=== PATIENT | male | born 1980 | race Caucasian/White ===

== ENCOUNTER 2023-09-07 20:17 | Inpatient (IN) | payer BC, SELFPAY ==
[2023-09-07] VITALS (8 sets, daily range): BP systolic 134–162; BP diastolic 78–99; PULSE 64–83; RESP 14–17; TEMP 36.8–37; O2SAT 97–98; BMI 28.5
--- NOTE | 2023-09-07 20:47 | ED.OVERDOSE ---
HPI - Overdose General Chief Complaint: Overdose Stated Complaint: overdose Time Seen by Provider: 09/07/23 20:27 History of Present Illness HPI Narrative: Patient is a 43-year-old male found by PD sleeping in his car. Patient admits to drinking alcohol. Also intentionally tried to overdose himself on Paxil. Patient took up to 30 tablets of 20 mg Paxil. In addition took 3 nips of Smirnoff. Patient very agitated as he had an argument with his . Lives in his car now. Patient denies any other recreational drug use. Uses marijuana from time to time. There is no fever no chills. No coughing no congestion or upper respiratory symptoms. No diaphoresis. Patient came in for further evaluation after being noticed by PD. Related Data Allergies Allergy/AdvReac Type Severity Reaction Status Date / Time No Known Allergies Allergy Verified 09/07/23 20:44 Review of Systems Review of Systems: Positive SI Yes all other systems are reviewed and are negative Physical Exam Vital Signs: Vital Signs: Last Vital Signs Temp 98.6 F 09/07/23 21:00 Pulse 64 09/07/23 21:00 Resp 16 09/07/23 21:00 BP 139/88 09/07/23 21:00 Pulse Ox 98 09/07/23 21:00 O2 Del Method Room Air 09/07/23 21:00 BMI result Body Mass Index 28.5 Appearance: Alert. Oriented X3. No acute distress. Eyes: Pupils equal, round and reactive to light. ENT: Pharynx normal. Neck: Normal inspection. Neck supple. No lymph nodes noted. No crepitus CVS: Normal heart rate and rhythm. Pulses normal. Normal S1 and S2 Respiratory: No respiratory distress. Breath sounds normal. No Wheezing. No rales Abdomen: Soft and nontender. No rigidity. No distention. good BS x4 Skin: Skin warm and dry. Normal skin color. Normal skin turgor. Extremities: No lower extremity edema. Neurovascular intact to all extremities. No Lacerations. No Rash Neuro: Oriented X 3. No motor deficit. No sensory deficit. Moving all extermities. No slurred speech Medical Decision Making Medical Decision Making MDM Narrative: Patient took an overdose after axilla. Also drank alcohol. Labs are pending. My interpretation of patient's EKG showed a sinus rhythm heart rate is 60 CT QRS QTC within normal limits is no acute ST segment elevation. Aspirin Tylenol level drawn. Alcohol level drawn. Tox screen ordered. No acute distress. Will require crisis evaluation after labs return. Case is being signed out at the change of shift. Differential Diagnosis Differential Diagnoses: The differential diagnosis associated with the presentation includes Overdose on alcohol, Paxil suicidal ideation Tylenol aspirin overdose Consult Healthcare Provider Management of the patient was discussed with: Behavioral Health Provider Lab Data [facility] Lab Attestation statement: I reviewed the patient's lab results. 09/07/23 21:12 09/07/23 21:12 Labs: Lab Results 09/07/23 09/07/23 Range/Units 21:07 21:12 WBC 8.9 (4.8-10.8) X10*3/uL RBC 5.24 (4.60-5.80) X10*6/uL Hgb 16.6 (14.0-18.0) g/dl Hct 47.8 (42.0-52.0) % MCV 91.2 (80.0-98.0) fL MCH 31.7 (27.0-33.0) pg MCHC 34.7 (31.0-36.0) g/dl RDW 14.0 (11.0-16.0) % Plt Count 309 (160-400) X10*3/uL MPV 7.9 L (9.4-12.4) fL Immature Gran % (Auto) 0.3 (0.0-0.4) % Neut % (Auto) 66.8 (45-73) % Lymph % (Auto) 23.0 (20-40) % Prentiss % (Auto) 8.8 (2-11) % Eos % (Auto) 0.7 (0-4) % Baso % (Auto) 0.4 (0-2) % Lymph # (Auto) 2.1 (1.2-4.9) X10*3/uL Prentiss # (Auto) 0.8 (0.1-1.2) X10*3/uL Eos # (Auto) 0.1 (0.0-0.4) X10*3/uL Baso # (Auto) 0.0 (0.0-0.2) X10*3/uL Abs Immat Gran (auto) 0.03 (0.00-0.03) X10*3/uL Absolute Neuts (auto) 6.0 (2.0-8.3) x10*3/uL Absolute Nucleated RBC 0.000 (0.0-0.012) X10*3/uL Nucleated RBC % (auto) 0.0 (0.0-0.2) /100WBC POC Glucose 74 (60-115) mg/dL Independent Interpretation I performed an independent interpretation of an: EKG (Sinus heart rate is 70 CT QRS QTC within normal limits is no acute ST segment elevation noted.) Chronic Conditions Anxiety depression long history of alcohol use Discharge Plan Discharge Clinical Impression: Drug overdose, Suicide attempt by multiple drug overdose Patient Disposition: Still a Patient
--- NOTE | 2023-09-07 21:14 | MHC.EDTECH ---
Patient came in by ambulance changed into crisis attire,(Security at Bedside) Patient placed on the cardiac specialist and vitals were taken.EKG was taken per order and signed by provider. Labs were obtained and sent to lab. POC taken and is 74 made aware. All belongings were placed in [facility] ROOM, Eye glasses patient has on. This tech is the one on one sitter at this time.
--- NOTE | 2023-09-07 21:20 | MHC.EDTECH ---
Patient urinated 400MLS in urinal. Urine was collected and sent to lab
--- NOTE | 2023-09-07 21:30 | MHC.EDTECH ---
Patient drank 240MLS of ice water, 1-1 sitter for safety
--- NOTE | 2023-09-07 22:17 | MHC.EDTECH ---
Hourly rounds and vitals completed,patient is resting comfortably, 1-1 sitter at bedside for safety
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
[2023-09-08] VITALS (14 sets, daily range): BP systolic 134–156; BP diastolic 82–98; PULSE 58–97; RESP 16–22; TEMP 36.4–37.3; O2SAT 95–98
--- NOTE | 2023-09-08 00:25 | PC.NURSE ---
RN to bedside for medication administration. When the RN asked the patient his date of he said a different date than listed in the chart. RN made registration aware to try and verify the pt's correct date of . Medication administration on hold at the moment.
--- NOTE | 2023-09-08 01:49 | PC.NURSE ---
RN called Poison control to report intentional OD and to obtain guidelines. Per Poison control the plan is to watch the patient until morning. She reports management of Paxil OD is the same as you would manage ETOH Withdrawals; with benzos. She did encourage us to keep the pt on the monitor technician until the morning, does not believe a repeat EKG is required at this time as he is well beyond the peak if the time he provided of a [id number] ingestion is correct. She reports she will check in before the end of her shift at 0700. clinical programmer and aware
--- NOTE | 2023-09-08 02:30 | MHC.EDTECH ---
Hourly rounds and vitals completed,patient is sleeping with a 1-1 sitter at bedside for safety.
--- NOTE | 2023-09-08 04:49 | MHC.EDTECH ---
Hourly rounds and vitals completed, patient is sleeping,1-1 sitter at bedside for safety
--- NOTE | 2023-09-08 05:46 | MHC.EDTECH ---
Hourly rounds and vitals completed,patient is sleeping and 1-1 sitter at bedside for safety.
--- NOTE | 2023-09-08 05:53 | MHC.EDTECH ---
POC taken and is 61 Shakira LICONA aware
--- NOTE | 2023-09-08 06:45 | PC.NURSE ---
poison control called and states pt is cleared from the paxil ingestions.
--- NOTE | 2023-09-08 08:11 | PC.NURSE ---
pt is alert and oriented, skin pwd, respirations even and unlabored, ls clear, abd soft and non-tender but pt is reporting general abd pain 7/10, denies nausea at this time, no visible tremor at this time, ns on the monitor. pt is reporting si, states he would try killing himself again with possible attempt to take pills again. sitter at bedside
--- NOTE | 2023-09-08 08:16 | PC.NURSE ---
care team at bedside
--- NOTE | 2023-09-08 12:36 | MHC.CARE ---
patient pending inpatient loc admission.
--- NOTE | 2023-09-08 17:26 | PC.NURSE ---
2mg Ativan given PO for CIWA of 7.
--- NOTE | 2023-09-08 19:13 | PC.NURSE ---
patient appears to remain at rest at present respirations are even and unlabored patient appears in no distress
[2023-09-09 07:53] VITALS: BP 151/95; PULSE 79; RESP 19; TEMP 36.3; O2SAT 97
--- NOTE | 2023-09-09 10:40 | PC.NURSE ---
calm, pleasant, polite and cooperative this morning, medicated as ordered, med rec completed and Dr Khan informed, currently laying in bed
[2023-09-09 10:59] VITALS: BP 142/88; PULSE 84; RESP 20; TEMP 36.8; O2SAT 99
[2023-09-09 14:45] VITALS: BP 136/80; PULSE 78; RESP 16; TEMP 37; O2SAT 98
[2023-09-09 16:10] VITALS: BP 111/70; PULSE 76; RESP 16; TEMP 37.1; O2SAT 98
[2023-09-09 16:26] VITALS: BMI 25.6
--- NOTE | 2023-09-09 19:11 | PC.NURSE ---
Christophe was admitted to [facility] at 1430 from [facility] on CV for treatment of MDD and ETOH use disorder.? Precipitant of admission include overdose on paxil in an attempt to end his life. Christophe is alert, fully oriented, pleasant and cooperative with admission process. Mood is depressed. Affect is anxious. . He denies hallucinations of any kind and no overt psychosis is noted. Christophe denies Ideation, plan or intent to harm self or others on admission, Appetite is good but he had an 18 lb weight loss prior to admission. Sleep is poor per pt report, 1 or 2 hours a night. Focus is good throughout assessment. Substance Issues -include daily marijuana use and drinking 10 nips per day every day for several weeks. He has extremely long and overgrown toe nails which appear to have cut his ankles superficially. He complained of headache improved but unrelieved by tylenol. CIWA at 1605 was 9 for which pt received ativan 1mg with effect. He is on q 15 minute Safety Checks
[2023-09-09 20:25] VITALS: BP 116/71; PULSE 77; RESP 18; TEMP 36.8; O2SAT 96
[2023-09-10 08:53] VITALS: BP 99/55; PULSE 65; RESP 15; TEMP 36.6; O2SAT 97
[2023-09-10 11:47] VITALS: BP 128/60; PULSE 70; RESP 16; TEMP 36.5; O2SAT 100
[2023-09-10 12:20] LABS: Alanine Aminotransferase 21 U/L (0-40); Albumin Level 3.5 g/dL (3.5-5.0); Alkaline Phosphatase 47 U/L (39-117); Anion Gap 9 (12-20); Aspartate Amino Transferase 38 U/L (5-37); Bilirubin Total 0.5 mg/dL (0.0-1.0); Blood Urea Nitrogen 10 mg/dL (9-16); Calcium 9.3 mg/dL (8.4-10.2); Carbon Dioxide 31 mmol/L (22-29); Chloride 108 mmol/L (96-108); Cholesterol 146 mg/dL (<200); Creatinine Clr Calc Pharmacy 123.1; Estimated Glomerular Filt Rate > 60; Glucose Fasting 87 mg/dL (60-99); HDL Cholesterol 51 mg/dL (>40); LDL Cholesterol Calculated 56 mg/dL (<100); Potassium 3.7 mmol/L (3.3-5.1); Sodium 144 mmol/L (135-145); Total Protein 6.3 g/dL (6.5-8.0); Triglycerides 198 mg/dL (<150)
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
[2023-09-10 20:20] VITALS: BP 120/70; PULSE 76; RESP 16; TEMP 37.1; O2SAT 98
[2023-09-11 06:00] VITALS: BP 110/67; PULSE 68; RESP 18; TEMP 36.2; O2SAT 96
--- NOTE | 2023-09-11 11:27 | HO.PSYCHPN ---
Subjective Subjective Date of Service: 09/11/23 Reason For Visit: crisis Subjective Notes: Conditional Voluntary Medical Problems Affecting Mental Status: No Interim History: met with patient. Discussed with Nursing. Chart reviewed. Main complaint today is GERD discomfort. Has done well with Protonix in the past. This discomfort has disrupted his sleep. Otherwise reports mood is getting better. Denies suicidal thoughts. No psychosis. Feeling supported. No withdrawal symptoms from Ativan taper. Continues to be hopeful for supports and planning after hospitalization. Medication Compliance: Yes Side effects from medications: No Attending Groups: Yes Review of Systems Acute medical concerns: No Review of Systems Review of Systems GERD Mental Status Exam Mental Status Exam Narrative: Pleasant. Engaged. Organized. Appropriately present in. Is dysthymic. Adamantly denies thoughts of suicide. No HI. No agitation or psychosis. Insight and judgment fair Diagnostics Vital Signs (24Hr): Vital Signs - 24 hr 09/10/23 11:47 09/10/23 20:20 09/11/23 06:00 Temperature 97.7 F 98.8 F 97.1 F Pulse Rate 70 76 68 Respiratory Rate 16 16 18 Blood Pressure 128/60 120/70 110/67 Pulse Oximetry 100 98 96 Oxygen Delivery Method Room Air Room Air Room Air BMI result Body Mass Index 25.6 Labs 09/07/23 21:12 09/10/23 11:29 Labs: Laboratory Results - last 48 hr 09/10/23 11:29 Sodium 144 Potassium 3.7 Chloride 108 Carbon Dioxide 31 H Anion Gap 9 L BUN 10 Creatinine 0.84 Estim Creat Clear Calc 123.1 Estimated GFR > 60 Fasting Glucose 87 Calcium 9.3 D Total Bilirubin 0.5 AST 38 H ALT 21 Alkaline Phosphatase 47 Total Protein 6.3 L Albumin 3.5 Triglycerides 198 H Cholesterol 146 LDL Cholesterol, Calc 56 HDL Cholesterol 51 Medications Medications Current Medications Acetaminophen (Acetaminophen 325 Mg Tablet) 650 mg PO Q6H PRN PRN Reason: Headache/Pain Mild Scale (1-3) Last Admin: 09/11/23 06:07 Dose: 650 mg Al Hydroxide/Mg Hydroxide (Magnesium Hydrox/Alum Hydrox 30 Ml Oral.Susp) 30 ml PO Q6H PRN PRN Reason: Heartburn/Nausea Last Admin: 09/11/23 00:02 Dose: 30 ml Bupropion HCl (Bupropion Hcl Xl 150 Mg Tab.Er.24h) 150 mg PO DAILY SEVEN Last Admin: 09/11/23 08:42 Dose: 150 mg Folic Acid (Folic Acid 1 Mg Tablet) 1 mg PO DAILY [facility] Last Admin: 09/11/23 08:42 Dose: 1 mg Hydroxyzine HCl (Hydroxyzine Hcl 25 Mg Tablet) 25 mg PO Q6H PRN PRN Reason: Anxiety Last Admin: 09/11/23 06:08 Dose: 25 mg Lorazepam (Lorazepam 1 Mg Tablet) 1 mg PO TID PRN; Taper PRN Reason: taper Stop: 09/13/23 13:49 Last Admin: 09/11/23 09:37 Dose: 1 mg Magnesium Hydroxide (Milk Of Magnesia 30 Ml Oral.Susp) 30 ml PO DAILY PRN PRN Reason: Constipation Multivitamins/Vitamin C (Multivitamin Tablet) 1 tab PO DAILY [facility] Last Admin: 09/11/23 08:42 Dose: 1 tab Nicotine (Nicotine 21 Mg Patch.Td24) 21 mg TRANSDERMA DAILY [facility] Last Admin: 09/11/23 08:42 Dose: 21 mg Nicotine Polacrilex (Nicotine Polacrilex 2 Mg Gum) 4 mg BUCCAL Q2H PRN PRN Reason: Nicotine Cravings Omeprazole (Omeprazole 20 Mg Capsule.Dr) 20 mg PO DAILY@0630 [facility] Last Admin: 09/11/23 06:08 Dose: 20 mg Paroxetine HCl (Paroxetine Hcl 20 Mg Tablet) 20 mg PO DAILY [facility] Stop: 09/21/23 08:59 Last Admin: 09/11/23 08:42 Dose: 20 mg Thiamine HCl (Thiamine Hcl 100 Mg Tablet) 100 mg PO DAILY [facility] Last Admin: 09/11/23 08:42 Dose: 100 mg Trazodone HCl (Trazodone Hcl 50 Mg Tablet) 50 mg PO BEDTIME MRX1 PRN PRN Reason: Insomnia Last Admin: 09/10/23 21:45 Dose: 50 mg Allergies Allergies Allergy/AdvReac Type Severity Reaction Status Date / Time No Known Allergies Allergy Verified 09/07/23 20:44 Assessment & Plan Assessment & Plan (1) Major depression: Status: Acute Code(s): F32.9 - Major depressive disorder, single episode, unspecified (2) Alcohol use disorder: Status: Acute Code(s): F10.90 - Alcohol use, unspecified, uncomplicated Plan presents with major depressive disorder and comorbid alcohol use disorder, with recent relapse following 10 years of sobriety. Significant psychosocial stressors. Reports has been on Paxil for well over 20 years through primary care provider and would like to try something different or in combination. Adamantly reports being adherent with Paxil even while drinking. Also reports being future oriented on returning to his work at [employer] on Tuesday. We did discuss legal status, including rights around three-day notice, gaona warning etc.. PLan: CV Start wellbutrin 150 Will order paxil 20mg with a view to tapering off pre admission dose of 40mg- no benefit but also want to avoid withdrawal syndrome. will also order Ativan taper 09/11/2023: Prilosec twice daily Reason for continued inpatient stay Substantial Risk for: harm to self Time Spent With Patient Time: Total time managing care of this patient today ____ minutes.
[2023-09-11 19:55] VITALS: BP 129/73; PULSE 83; RESP 16; TEMP 36.8; O2SAT 98
[2023-09-12 07:15] VITALS: BP 115/70; PULSE 75; RESP 16; TEMP 36.2; O2SAT 100
[2023-09-12 07:45] VITALS: BP 115/70; PULSE 75; RESP 16; TEMP 36.2; O2SAT 100
--- NOTE | 2023-09-12 09:45 | P.PNPSI_ITS ---
Subjective Subjective Date of Service: 09/12/23 Reason For Visit: crisis Subjective Notes: Conditional Voluntary Interim History: Reviewed with . Patient reports feeling better ; pt stated, I took a bunch of pills and realized I shouldn't have done that just because I didn't have anywhere to go. My work is my life and that's what makes me happy. I plan on staying with one of my coworkers. I also feel better with taking the Wellbutrin . Patient reports he is hoping to maintain his sobriety since he has a hx of being 10 years sober prior to this relapse. Pt stated, I plan on going to AA meetings and following up with the outpatient providers . pt denies SI/HI/VH/AH. Medication Compliance: Yes Side effects from medications: No Review of Systems Constitutional: Reports as per HPI Eyes: Reports as per HPI Reports as per HPI Cardiovascular: Reports as per HPI Respiratory: Reports as per HPI Gastrointestinal: Reports as per HPI Genitourinary: Reports as per HPI Musculoskeletal: Reports as per HPI Skin/Breast: Reports as per HPI Reports as per HPI Psychiatric: Reports as per HPI Endocrine: Reports as per HPI Hematologic/Lymphatic: Reports as per HPI Allergic/Immunologic: Reports as per HPI Mental Status Exam Mental Status Exam Narrative: Pt is alert and oriented; behavior is cooperative and calm; dressed in casual attire; mood is described as better ; eye contact appropriate; Speech is normal rate, volume and prosody and not pressured; thought process is organized and goal directed; Thought content is on tx; otherwise pertinent to relevant topics and without any delusional content, paranoid ideations or grandiosity; denies SI/HI/VH/AH. Diagnostics Vital Signs (24Hr): Vital Signs - 24 hr 09/11/23 19:55 09/12/23 07:15 09/12/23 07:45 Temperature 98.2 F 97.2 F 97.2 F Pulse Rate 83 75 75 Respiratory Rate 16 16 16 Blood Pressure 129/73 115/70 115/70 Pulse Oximetry 98 100 100 Oxygen Delivery Method Room Air Room Air Room Air BMI result Body Mass Index 25.6 Labs 09/07/23 21:12 09/10/23 11:29 Labs: Laboratory Results - last 48 hr 09/10/23 11:29 Sodium 144 Potassium 3.7 Chloride 108 Carbon Dioxide 31 H Anion Gap 9 L BUN 10 Creatinine 0.84 Estim Creat Clear Calc 123.1 Estimated GFR > 60 Fasting Glucose 87 Calcium 9.3 D Total Bilirubin 0.5 AST 38 H ALT 21 Alkaline Phosphatase 47 Total Protein 6.3 L Albumin 3.5 Triglycerides 198 H Cholesterol 146 LDL Cholesterol, Calc 56 HDL Cholesterol 51 Medications Medications Current Medications Acetaminophen (Acetaminophen 325 Mg Tablet) 650 mg PO Q6H PRN PRN Reason: Headache/Pain Mild Scale (1-3) Last Admin: 09/12/23 03:18 Dose: 650 mg Al Hydroxide/Mg Hydroxide (Magnesium Hydrox/Alum Hydrox 30 Ml Oral.Susp) 30 ml PO Q6H PRN PRN Reason: Heartburn/Nausea Last Admin: 09/11/23 21:07 Dose: 30 ml Bupropion HCl (Bupropion Hcl Xl 150 Mg Tab.Er.24h) 150 mg PO DAILY [facility] Last Admin: 09/12/23 08:05 Dose: 150 mg Folic Acid (Folic Acid 1 Mg Tablet) 1 mg PO DAILY [facility] Last Admin: 09/12/23 08:04 Dose: 1 mg Hydroxyzine HCl (Hydroxyzine Hcl 25 Mg Tablet) 25 mg PO Q6H PRN PRN Reason: Anxiety Last Admin: 09/12/23 09:19 Dose: 25 mg Lorazepam (Lorazepam 1 Mg Tablet) 1 mg PO BID PRN; Taper PRN Reason: taper Stop: 09/13/23 13:49 Last Admin: 09/11/23 15:51 Dose: 1 mg Magnesium Hydroxide (Milk Of Magnesia 30 Ml Oral.Susp) 30 ml PO DAILY PRN PRN Reason: Constipation Multivitamins/Vitamin C (Multivitamin Tablet) 1 tab PO DAILY [facility] Last Admin: 09/12/23 08:04 Dose: 1 tab Nicotine (Nicotine 21 Mg Patch.Td24) 21 mg TRANSDERMA DAILY [facility] Last Admin: 09/12/23 08:03 Dose: 21 mg Nicotine Polacrilex (Nicotine Polacrilex 2 Mg Gum) 4 mg BUCCAL Q2H PRN PRN Reason: Nicotine Cravings Omeprazole (Omeprazole 20 Mg Capsule.Dr) 20 mg PO BID@0630,1630 [facility] Last Admin: 09/12/23 06:05 Dose: 20 mg Paroxetine HCl (Paroxetine Hcl 20 Mg Tablet) 20 mg PO DAILY [facility] Stop: 09/21/23 08:59 Last Admin: 09/12/23 08:04 Dose: 20 mg Thiamine HCl (Thiamine Hcl 100 Mg Tablet) 100 mg PO DAILY [facility] Last Admin: 09/12/23 08:04 Dose: 100 mg Trazodone HCl (Trazodone Hcl 50 Mg Tablet) 50 mg PO BEDTIME MRX1 PRN PRN Reason: Insomnia Last Admin: 09/11/23 21:06 Dose: 50 mg Allergies Allergies Allergy/AdvReac Type Severity Reaction Status Date / Time No Known Allergies Allergy Verified 09/07/23 20:44 Assessment & Plan Assessment & Plan (1) Major depression: Status: Acute Code(s): F32.9 - Major depressive disorder, single episode, unspecified (2) Alcohol use disorder: Status: Acute Code(s): F10.90 - Alcohol use, unspecified, uncomplicated Plan presents with major depressive disorder and comorbid alcohol use disorder, with recent relapse following 10 years of sobriety. Significant psychosocial stressors. Reports has been on Paxil for well over 20 years through primary care provider and would like to try something different or in combination. Adamantly reports being adherent with Paxil even while drinking. Also reports being future oriented on returning to his work at [employer] on Tuesday. We did discuss legal status, including rights around three-day notice, [place] warning etc.. PLan: CV Start wellbutrin 150 Will order paxil 20mg with a view to tapering off pre admission dose of 40mg- no benefit but also want to avoid withdrawal syndrome. will also order Ativan taper 09/11/2023: Prilosec twice daily 09/12: Patient reports feeling better ; pt stated, I took a bunch of pills and realized I shouldn't have done that just because I didn't have anywhere to go. My work is my life and that's what makes me happy. I plan on staying with one of my coworkers. I also feel better with taking the Wellbutrin . Patient reports he is hoping to maintain his sobriety since he has a hx of being 10 years sober prior to this relapse. Pt stated, I plan on going to AA meetings and following up with the outpatient providers . pt denies SI/HI/VH/AH. Continue current tx plan. Patient educated on: diagnosis, medication risk/benefits, substance abuse and therapeutic strategies Informed Consent: understands Reason for continued inpatient stay Substantial Risk for: med/psych decompensation Time Spent With Patient Time: Total time managing care of this patient today _30___ minutes.
--- NOTE | 2023-09-12 14:56 | MHC.CLN ---
NUTRITION CONSULT FOR 18# WEIGHT LOSS, LACK OF APPETITE. WEIGHT DISCREPANCY NOTED UPON ADMISSION WITH 09/07=95.254 KG AND 09/09=85.729 KG. NO PRIOR WEIGHT HX VIEWED. CURRENT APPETITE REPORTED TO BE GOOD/EXCELLENT. LIKELY CONTRIBUTORS TO WEIGHT LOSS PRIOR TO ADMIT INCLUDE ETOH USE DISORDER AND MDD WITH SUICIDE ATTEMPT. NO ADDITIONAL NUTRITION INTERVENTIONS DUE TO CURRENT GOOD APPETITE.
[2023-09-12] MEDS: Acetaminophen 325 MG TABLET 650 MG PO (16:34)
[2023-09-12] MEDS: Omeprazole 20 MG CAPSULE.DR PO (16:34)
[2023-09-12] MEDS: Pseudoephedrine HCL 30 MG TABLET PO ×2 (16:53→20:58)
[2023-09-12] MEDS: LORazepam 0.5 MG TABLET PO (18:17)
[2023-09-12] MEDS: traZODone HCL 50 MG TABLET PO ×2 (21:15→22:19)
[2023-09-12 22:03] VITALS: BP 125/71; PULSE 78; RESP 16; TEMP 37.2; O2SAT 99
[2023-09-12] MEDS: hydrOXYzine HCL 25 MG TABLET PO (22:19)
[2023-09-13] MEDS: hydrOXYzine HCL 25 MG TABLET PO ×4 (04:34→23:03)
[2023-09-13] MEDS: Pseudoephedrine HCL 30 MG TABLET PO ×5 (04:35→23:03)
[2023-09-13] MEDS: Omeprazole 20 MG CAPSULE.DR PO ×2 (05:59→16:29)
[2023-09-13 07:10] VITALS: BP 120/63; PULSE 73; RESP 14; TEMP 36.6; O2SAT 98
[2023-09-13] MEDS: LORazepam 0.5 MG TABLET PO ×2 (08:28→18:19)
[2023-09-13] MEDS: PARoxetine HCL 20 MG TABLET PO (08:28)
[2023-09-13] MEDS: buPROPion HCl XL 150 MG TAB.ER.24H PO (08:28)
[2023-09-13] MEDS: Nicotine 21 MG PATCH.TD24 TRANSDERMA (08:28)
--- NOTE | 2023-09-13 09:19 | P.PNPSI_ITS ---
Subjective Subjective Date of Service: 09/13/23 Reason For Visit: crisis Subjective Notes: Conditional Voluntary Interim History: Reviewed with . Patient reports feeling good today; sleeping well. Pt stated, I plan on getting my car and driving to the jail after I'm discharged then going back to work . Pt denies SI/HI/VH/AH. Medication Compliance: Yes Side effects from medications: No Attending Groups: Intermittent Review of Systems Constitutional: Reports as per HPI Eyes: Reports as per HPI Reports as per HPI Cardiovascular: Reports as per HPI Respiratory: Reports as per HPI Gastrointestinal: Reports as per HPI Genitourinary: Reports as per HPI Musculoskeletal: Reports as per HPI Skin/Breast: Reports as per HPI Reports as per HPI Psychiatric: Reports as per HPI Endocrine: Reports as per HPI Hematologic/Lymphatic: Reports as per HPI Allergic/Immunologic: Reports as per HPI Mental Status Exam Mental Status Exam Narrative: Pt is alert and oriented; behavior is cooperative and calm; dressed in casual attire; mood is described as good ; eye contact appropriate; Speech is normal rate, volume and prosody and not pressured; thought process is organized and goal directed; Thought content is on discharge; otherwise pertinent to relevant topics and without any delusional content, paranoid ideations or grandiosity; denies SI/HI/VH/AH. Diagnostics Vital Signs (24Hr): Vital Signs - 24 hr 09/12/23 22:03 09/13/23 07:10 Temperature 99.0 F 97.9 F Pulse Rate 78 73 Respiratory Rate 16 14 Blood Pressure 125/71 120/63 Pulse Oximetry 99 98 Oxygen Delivery Method Room Air Room Air BMI result Body Mass Index 25.6 Labs 09/07/23 21:12 09/10/23 11:29 Medications Medications Current Medications Acetaminophen (Acetaminophen 325 Mg Tablet) 650 mg PO Q6H PRN PRN Reason: Headache/Pain Mild Scale (1-3) Last Admin: 09/12/23 16:34 Dose: 650 mg Al Hydroxide/Mg Hydroxide (Magnesium Hydrox/Alum Hydrox 30 Ml Oral.Susp) 30 ml PO Q6H PRN PRN Reason: Heartburn/Nausea Last Admin: 09/11/23 21:07 Dose: 30 ml Bupropion HCl (Bupropion Hcl Xl 150 Mg Tab.Er.24h) 150 mg PO DAILY [facility] Last Admin: 09/13/23 08:28 Dose: 150 mg Hydroxyzine HCl (Hydroxyzine Hcl 25 Mg Tablet) 25 mg PO Q6H PRN PRN Reason: Anxiety Last Admin: 09/13/23 04:34 Dose: 25 mg Lorazepam (Lorazepam 0.5 Mg Tablet) 0.5 mg PO BID PRN PRN Reason: Anxiety Last Admin: 09/13/23 08:28 Dose: 0.5 mg Magnesium Hydroxide (Milk Of Magnesia 30 Ml Oral.Susp) 30 ml PO DAILY PRN PRN Reason: Constipation Nicotine (Nicotine 21 Mg Patch.Td24) 21 mg TRANSDERMA DAILY [facility] Last Admin: 09/13/23 08:28 Dose: 21 mg Nicotine Polacrilex (Nicotine Polacrilex 2 Mg Gum) 4 mg BUCCAL Q2H PRN PRN Reason: Nicotine Cravings Omeprazole (Omeprazole 20 Mg Capsule.Dr) 20 mg PO BID@0630,1630 [facility] Last Admin: 09/13/23 05:59 Dose: 20 mg Paroxetine HCl (Paroxetine Hcl 20 Mg Tablet) 20 mg PO DAILY [facility] Stop: 09/21/23 08:59 Last Admin: 09/13/23 08:28 Dose: 20 mg Pseudoephedrine HCl (Pseudoephedrine Hcl 30 Mg Tablet) 30 mg PO Q4H PRN PRN Reason: Congestion Last Admin: 09/13/23 04:35 Dose: 30 mg Trazodone HCl (Trazodone Hcl 50 Mg Tablet) 50 mg PO BEDTIME MRX1 PRN PRN Reason: Insomnia Last Admin: 09/12/23 22:19 Dose: 50 mg Allergies Allergies Allergy/AdvReac Type Severity Reaction Status Date / Time No Known Allergies Allergy Verified 09/07/23 20:44 Assessment & Plan Assessment & Plan (1) Major depression: Status: Acute Code(s): F32.9 - Major depressive disorder, single episode, unspecified (2) Alcohol use disorder: Status: Acute Code(s): F10.90 - Alcohol use, unspecified, uncomplicated Plan presents with major depressive disorder and comorbid alcohol use disorder, with recent relapse following 10 years of sobriety. Significant psychosocial stressors. Reports has been on Paxil for well over 20 years through primary care provider and would like to try something different or in combination. Adamantly reports being adherent with Paxil even while drinking. Also reports being future oriented on returning to his work at [employer] on Tuesday. We did discuss legal status, including rights around three-day notice, [place] warning etc.. PLan: CV Start wellbutrin 150 Will order paxil 20mg with a view to tapering off pre admission dose of 40mg- no benefit but also want to avoid withdrawal syndrome. will also order Ativan taper 09/11/2023: Prilosec twice daily 09/12: Patient reports feeling better ; pt stated, I took a bunch of pills and realized I shouldn't have done that just because I didn't have anywhere to go. My work is my life and that's what makes me happy. I plan on staying with one of my coworkers. I also feel better with taking the Wellbutrin . Patient reports he is hoping to maintain his sobriety since he has a hx of being 10 years sober prior to this relapse. Pt stated, I plan on going to AA meetings and following up with the outpatient providers . pt denies SI/HI/VH/AH. Continue current tx plan. 09/13: Patient reports feeling good today; sleeping well. Pt stated, I plan on getting my car and driving to the jail after I'm discharged then going back to work . Pt denies SI/HI/VH/AH. Plan to discharge tomorrow. Patient educated on: diagnosis, medication risk/benefits, substance abuse and therapeutic strategies Informed Consent: understands Reason for continued inpatient stay Substantial Risk for: stable for discharge Time Spent With Patient Time: Total time managing care of this patient today _20___ minutes.
[2023-09-13] MEDS: Acetaminophen 325 MG TABLET 650 MG PO ×2 (12:17→21:03)
[2023-09-13 20:55] VITALS: BP 129/65; PULSE 75; RESP 16; TEMP 36.6; O2SAT 99
[2023-09-13] MEDS: traZODone HCL 50 MG TABLET PO ×2 (21:06→21:58)
[2023-09-14] MEDS: traZODone HCL 50 MG TABLET PO (01:52)
[2023-09-14] MEDS: Pseudoephedrine HCL 30 MG TABLET PO ×2 (05:07→10:01)
[2023-09-14] MEDS: Omeprazole 20 MG CAPSULE.DR PO (05:30)
[2023-09-14] MEDS: hydrOXYzine HCL 25 MG TABLET PO (05:30)
[2023-09-14] MEDS: Acetaminophen 325 MG TABLET 650 MG PO ×2 (05:49→11:31)
[2023-09-14 07:05] VITALS: BP 116/58; PULSE 73; RESP 14; TEMP 36.2; O2SAT 99
[2023-09-14] MEDS: Nicotine 21 MG PATCH.TD24 TRANSDERMA (07:58)
[2023-09-14] MEDS: PARoxetine HCL 20 MG TABLET PO (07:59)
[2023-09-14] MEDS: buPROPion HCl XL 150 MG TAB.ER.24H PO (07:59)
[2023-09-14] MEDS: LORazepam 0.5 MG TABLET PO (08:02)
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
== END 2023-09-14 11:40 | disposition home or self-care (01) | DRG 754 ==
LOC: HO.ED 09-09 09:55 → HO.PADLT16 09-09 13:47
PROVIDERS: Admitting Provider Registered Nurse; Emergency Provider Emergency Medicine Emergency Medical Services; Responsible Provider Registered Nurse; Visit Provider Psychiatry & Neurology Psychiatry
DX: F32.9 Major depressive disorder, single episode, unspecified (principal); F10.20 Alcohol dependence, uncomplicated; F17.210 Nicotine dependence, cigarettes, uncomplicated; T43.222A Poisoning by selective serotonin reuptake inhibitors, intentional self-harm, initial encounter; Z20.822 Contact with and (suspected) exposure to COVID-19; Z59.02 Unsheltered homelessness; Z71.6 Tobacco abuse counseling; Z79.899 Other long term (current) drug therapy
CPT/HCPCS: 36415; 80048; 80053; 80061; 80076; 80143; 80179; 80307; 81001; 82272; 82947; 85025; 85610; 87635; 93005; 99285; J2765; S9485

== ENCOUNTER → 2023-09-07 20:44 | Outpatient (BNV) | payer BC, SELFPAY | PROVIDERS: Emergency Provider Emergency Medicine Emergency Medical Services; Visit Provider Internal Medicine Cardiovascular Disease | DX: T50.901A Poisoning by unspecified drugs, medicaments and biological substances, accidental (unintentional), initial encounter (principal); R94.31 Abnormal electrocardiogram [ECG] [EKG] | CPT/HCPCS: 93010 ==

== ENCOUNTER → 2023-09-09 13:44 | Outpatient (BNV) | payer BC, SELFPAY | PROVIDERS: Admitting Provider Registered Nurse; Emergency Provider Emergency Medicine Emergency Medical Services; Visit Provider Psychiatry & Neurology Psychiatry | DX: F33.2 Major depressive disorder, recurrent severe without psychotic features (principal); F10.90 Alcohol use, unspecified, uncomplicated | CPT/HCPCS: 90792; 99231; 99238 ==

== ENCOUNTER 2023-09-16 05:18 | Inpatient (IN) | payer BC, SELFPAY ==
[2023-09-16] VITALS (8 sets, daily range): BP systolic 93–124; BP diastolic 56–72; PULSE 66–80; RESP 12–19; TEMP 36.1–36.8; O2SAT 94–100; BMI 27.9
--- NOTE | 2023-09-16 | ECG_ITS ---
Test Reason : OD Blood Pressure : / mmHG Vent. Rate : 073 BPM Atrial Rate : 073 BPM P-R Int : 148 ms QRS Dur : 088 ms QT Int : 380 ms P-R-T Axes : 045 -02 032 degrees QTc Int : 418 ms Normal sinus rhythm Normal ECG When compared with ECG of 16-SEP-2023 07:33, No significant change was found Referred By: Jose Carlos Sharma Electronically Signed By:ASHLY SALGADO MD
--- NOTE | 2023-09-16 | ECG_ITS ---
Test Reason : SI Blood Pressure : / mmHG Vent. Rate : 066 BPM Atrial Rate : 066 BPM P-R Int : 150 ms QRS Dur : 086 ms QT Int : 402 ms P-R-T Axes : 059 001 044 degrees QTc Int : 421 ms Normal sinus rhythm Inferior infarct (cited on or before 16-SEP-2023) Abnormal ECG When compared with ECG of 07-SEP-2023 20:57, No significant change was found Referred By: Generic ED Physician Electronically Signed By:ASHLY SALGADO MD
--- NOTE | 2023-09-16 05:28 | PC.NURSE ---
Wellbutrin tabs were 150mg each and he took 3 of these. Paxil tabs were 20mg each and he took a total of 2 of these. Patient also took 80mg of THC and 10 nips of 100 proof root beer vodka.
--- NOTE | 2023-09-16 05:30 | PC.NURSE ---
Patient states that he was feeling suicidal prior to discharge on Tuesday but was not truthful with staff and said that he was okay when he wasn't. Patient states that he feels that he is unable to hurt himself further at this point but if he were able to he is still feeling like he wants to hurt himself.
[2023-09-16 05:31] LABS: Glucose, Whole Blood 76 mg/dL (60-115)
--- NOTE | 2023-09-16 05:37 | ED.PSYCH ---
HPI - Psych General Chief Complaint: Psychiatric Symptoms Stated Complaint: suicidal Time Seen by Provider: 09/16/23 05:30 Source: patient Mode of arrival: ambulatory Limitations: no limitations History of Present Illness HPI Narrative: Patient comes to the emergency room complaining of suicidal ideation. Patient states that he took 3 tablets of Wellbutrin 150 mg, 2 tablets of Paxil , 80 mg of marijuana and drank 10 nebs. Patient states that he was planning to take more to kill himself. Patient states that he got into an argument with his and that triggered his anxiety and depression. Of note, patient was discharged from the psychiatric floor 2 days ago Related Data Previous Rx's Medication Instructions Recorded bupropion HCl 150 mg 24 hr tablet, 150 mg PO DAILY 30 days #30 tabs 09/13/23 extended release omeprazole 20 mg capsule,delayed 20 mg PO BID@0630,1630 30 days #60 09/13/23 release caps paroxetine HCl 20 mg tablet 20 mg PO DAILY 30 days #30 tabs 09/13/23 Allergies Allergy/AdvReac Type Severity Reaction Status Date / Time No Known Allergies Allergy Verified 09/07/23 20:44 Review of Systems Review of Systems: Constitutional : No Weight loss, No Fever, No Chills, No Night Sweats, No Fatigue, No Malaise ENT/Mouth : No Hearing loss, No Ear Pain, No Nasal Congestion, No Sinus Pain, No Hoarseness, No sore throat, No Rhinorrhea, No Swallowing Difficulty Eyes: No Eye Pain, No Swelling, No Redness, No Foreign Body, No Discharge, No Vision Changes Cardiovascular : No Chest Pain, No SOB, No Dyspnea on Exertion, No Orthopnea, No Edema, No Palpitations Respiratory : No Cough, No Sputum, No Wheezing, No Smoke Exposure, No Dyspnea Gastrointestinal : No Nausea, No Vomiting, No Diarrhea, No Constipation, No abdominal Pain, No Hematochezia, No Melena Genitourinary : no irregular bleeding, No Dysuria, No Urinary Frequency, No Hematuria, No Urinary Incontinence, No Urgency, No Flank Pain, No Urinary Flow Changes, No Hesitancy Musculoskeletal : No joint pain, No Myalgias, No Joint Swelling Skin : No Skin Lesions, No rash Neuro : No Weakness, No Numbness, No Paresthesias, No Loss of Consciousness, No Dizziness, No Headache Psych : Complaining of anxiety and depression, complaining of SI attempt, no HI Heme/Lymph: No Bruising, No Bleeding,No Lymphadenopathy Endocrine : No Polyuria, No Polydipsia, No Temperature Intolerance PMFSH Past Medical History Onset Date is defined in the Problem List Problems that require an onset date and time if occurred within 24 hrs of arrival to the ED Aortic Dissection and Rupture; Neurologic impairment; Cardiopulmonary Arrest; Endotracheal Intubation; Insertion or Replacement of Mechanical Circulatory Assist Device Medical History (Updated 09/16/23 @ 06:32 by Prachi Matson MD) Alcohol use disorder Major depression Suicide attempt by multiple drug overdose Drug overdose Social History Social History Household Members: None Housing: Homeless Do you presently have visiting nurse or other home services: No Unable to assess alcohol history related to: Unable to respond Patient Tobacco Use Status: Current everyday Tobacco user Tobacco use type: Cigarette Cigarette Packs Per Day: 1 Cigarettes Per Day: 20.0 Second Hand Smoke Exposure: No Substance Use Type: Marijuana Advance Directives: No Advance Directives Information Provided: Yes service: No Sexual orientation: Straight/Heterosexual Physical Exam Vital Signs: Vital Signs: Last Vital Signs Temp 97.7 F 09/16/23 05:21 Pulse 66 09/16/23 05:21 Resp 12 09/16/23 05:21 BP 110/68 09/16/23 05:21 Pulse Ox 100 09/16/23 05:21 O2 Del Method Room Air 09/16/23 05:21 BMI result Body Mass Index 27.9 Const: Other: Appearance: Alert. Oriented X3. No acute distress. Coherent Eyes: Pupils equal, round and reactive to light. ENT: Pharynx normal. Neck: Normal inspection. Neck supple. No lymph nodes noted. No crepitus CVS: Normal heart rate and rhythm. Pulses normal. Normal S1 and S2 Respiratory: No respiratory distress. Breath sounds normal. No Wheezing. No rales Abdomen: Soft and nontender. No rigidity. No distention. Skin: Skin warm and dry. Normal skin color. Normal skin turgor. Extremities: No lower extremity edema. No Lacerations. No Rash Neuro: Oriented X 3. No motor deficit. No sensory deficit. Moving all extremities. No slurred speech. CN 2 through 12 grossly intact Psych: calm, cooperative, normal affect Course Course Course Narrative: -all of patient's labs pending -care team consult pain -poison control has been contacted -patient is on a Section 12 -physician observation started at 05:39 Medications Administered Generic Name Dose Route Start Last Admin Trade Name Freq PRN Reason Stop Dose Admin Sodium Chloride 1,000 mls @ 999 mls/hr 09/16/23 06:10 09/16/23 06:16 Ns IVCONT 09/16/23 07:10 999 mls/hr .Q1H1M ONE Administration Discontinued Medications Generic Name Dose Route Start Last Admin Trade Name Freq PRN Reason Stop Dose Admin Charcoal 50 gm 09/16/23 06:10 09/16/23 06:15 Activated Charcoal 50 Gm/240 Ml Oral.Susp PO 09/16/23 06:11 50 gm ONCE ONE Administration Medical Decision Making Medical Decision Making [facility] Narrative: -my interpretation of labs: Hematology and chemistry unremarkable. It will alcohol 115. Acetaminophen and salicylate negative. -my interpretation of EKG, sinus rhythm, heart rate 66, no ST segment depression or elevation, no T-wave inversion, QTC 420 -poison control recommendations p.o. charcoal, fluids, seizure precautions, admits -I discussed the patient with Dr. Garza, patient admitted/observation -patient remains on a Section 12 -psychiatric consult will be needed Differential Diagnosis Differential Diagnoses: The differential diagnosis associated with the presentation includes (Anxiety, depression, suicide attempt, alcohol abuse, polysubstance abuse) Admission/Observation Consideration of admission/observation: Escalation of care including admission/observation considered (Patient is on a Section 12, waiting to be seen by the care team) Consult Healthcare Provider Management of the patient was discussed with: Hospitalist Lab Data [facility] Lab Attestation statement: I reviewed the patient's lab results. 09/16/23 05:46 09/16/23 05:46 Labs: Lab Results 09/16/23 09/16/23 Range/Units 05:26 05:46 WBC 9.1 (4.8-10.8) X10*3/uL RBC 4.73 (4.60-5.80) X10*6/uL Hgb 15.0 (14.0-18.0) g/dl Hct 46.2 (42.0-52.0) % MCV 97.7 (80.0-98.0) fL MCH 31.7 (27.0-33.0) pg MCHC 32.5 (31.0-36.0) g/dl RDW 15.0 (11.0-16.0) % Plt Count 328 (160-400) X10*3/uL MPV 8.1 L (9.4-12.4) fL Immature Gran % (Auto) 1.6 H (0.0-0.4) % Neut % (Auto) 48.4 (45-73) % Lymph % (Auto) 35.3 (20-40) % [place] % (Auto) 10.9 (2-11) % Eos % (Auto) 2.9 (0-4) % Baso % (Auto) 0.9 (0-2) % Lymph # (Auto) 3.2 (1.2-4.9) X10*3/uL [place] # (Auto) 1.0 (0.1-1.2) X10*3/uL Eos # (Auto) 0.3 (0.0-0.4) X10*3/uL Baso # (Auto) 0.1 (0.0-0.2) X10*3/uL Abs Immat Gran (auto) 0.15 H (0.00-0.03) X10*3/uL Absolute Neuts (auto) 4.4 (2.0-8.3) x10*3/uL Absolute Nucleated RBC 0.000 (0.0-0.012) X10*3/uL Nucleated RBC % (auto) 0.0 (0.0-0.2) /100WBC Sodium 144 (135-145) mmol/L Potassium 4.5 (3.3-5.1) mmol/L Chloride 104 (96-108) mmol/L Carbon Dioxide 29 (22-29) mmol/L Anion Gap 16 (12-20) BUN 16 (9-16) mg/dL Creatinine 1.03 (0.5-1.4) mg/dL Estim Creat Clear Calc 105.4 Estimated GFR > 60 POC Glucose 76 (60-115) mg/dL Random Glucose 77 (60-115) mg/dL Calcium 9.6 (8.4-10.2) mg/dL Magnesium 2.7 H (1.6-2.6) mg/dL Total Bilirubin 0.3 (0.0-1.0) mg/dL AST 44 H (5-37) U/L ALT 56 H (0-40) U/L Alkaline Phosphatase 77 (39-117) U/L Total Protein 8.2 H (6.5-8.0) g/dL Albumin 4.5 (3.5-5.0) g/dL Hold Red Top See Note Salicylates < 5.0 L (15-30) mg/dL Acetaminophen < 3 (<30) mcg/mL Ethyl Alcohol 115 mg/dL Independent Interpretation I performed an independent interpretation of an: EKG Critical Care Time Critical Care Time Critical Care Time: Yes Total Critical Care Time: 60 Attestation: I have personally provided critical care time. Time includes review of lab data, radiology results, discussion with consultants, and monitoring for potential decompensation. Intervention performed as documented. Discharge Plan Discharge Clinical Impression: Suicide attempt Patient Disposition: Admitted as Observation Prescriptions: No Action bupropion HCl 150 mg Tablet Extended Release 24 Hr 150 mg PO DAILY 30 Days Qty: 30 0RF omeprazole 20 mg Capsule,Delayed Release(Dr/Ec) 20 mg PO BID@0630,1630 30 Days Qty: 60 0RF paroxetine HCl 20 mg Tablet 20 mg PO DAILY 30 Days Qty: 30 0RF
[2023-09-16 05:51] LABS: MANUAL DIFF FLAG NO
[2023-09-16 05:52] LABS: Basophils Absolute Auto 0.1 X10*3/uL (0.0-0.2); Basophils Percent Auto 0.9 % (0-2); Eosinophils Absolute Auto 0.3 X10*3/uL (0.0-0.4); Eosinophils Percent Auto 2.9 % (0-4); Hematocrit 46.2 % (42.0-52.0); Imm Gran Abs Auto 0.15 X10*3/uL (0.00-0.03); Imm Gran Pct Auto 1.6 % (0.0-0.4); Lymphocytes Absolute Auto 3.2 X10*3/uL (1.2-4.9); Lymphocytes Percent Auto 35.3 % (20-40); Mean Corpuscular HGB Conc 32.5 g/dl (31.0-36.0); Mean Corpuscular Hemoglobin 31.7 pg (27.0-33.0); Mean Corpuscular Volume 97.7 fL (80.0-98.0); Mean Platelet Volume 8.1 fL (9.4-12.4); Monocytes Percent Auto 10.9 % (2-11); Neutrophils Absolute Auto 4.4 x10*3/uL (2.0-8.3); Neutrophils Percent Auto 48.4 % (45-73); Platelet Count 328 X10*3/uL (160-400); Red Blood Count 4.73 X10*6/uL (4.60-5.80); White Blood Count 9.1 X10*3/uL (4.8-10.8)
--- NOTE | 2023-09-16 06:01 | PC.NURSE ---
This RN spoke with poison control staff, Cristal. Cristal provided to following plan: Order the following labs: cbc, cmp, Tylenol, aspirin, ethanol, FLORES, and mag, Repeat labs at 4 hours: CMP, Tylenol and aspirin If potassium is less than 4 or mag is less than 2 they are to be supplemented Repeat EKG in 2 hours. If pt is not tachy, qrs is less than 100, and qtc is less than 500 subsequent repeat ekgs can be q4h otherwise it should be q2hr Meds: 50g charcoal STAT and bolus of fluids (if provider feels it is warranted. Cristal notes bp is good at this time) Benzos for agitated, tremors or rigidity, seizure activity or fever. front desk monitor, seizure precautions PT should be admitted to tele
[2023-09-16] MEDS: Activated charcoaL 50 GM/240 ML ORAL.SUSP PO (06:15)
[2023-09-16] MEDS: 0.9 % Sodium Chloride 1,000 ML 999 ML IVCONT (06:16)
[2023-09-16 06:20] LABS: Ethanol 115 mg/dL
[2023-09-16 06:22] LABS: Magnesium 2.7 mg/dL (1.6-2.6)
[2023-09-16 06:23] LABS: Alanine Aminotransferase 56 U/L (0-40); Albumin Level 4.5 g/dL (3.5-5.0); Alkaline Phosphatase 77 U/L (39-117); Anion Gap 16 (12-20); Aspartate Amino Transferase 44 U/L (5-37); Bilirubin Total 0.3 mg/dL (0.0-1.0); Blood Urea Nitrogen 16 mg/dL (9-16); Calcium 9.6 mg/dL (8.4-10.2); Carbon Dioxide 29 mmol/L (22-29); Chloride 104 mmol/L (96-108); Creatinine Clr Calc Pharmacy 105.4; Estimated Glomerular Filt Rate > 60; Glucose Random 77 mg/dL (60-115); Potassium 4.5 mmol/L (3.3-5.1); Sodium 144 mmol/L (135-145); Total Protein 8.2 g/dL (6.5-8.0)
[2023-09-16 06:25] LABS: Acetaminophen LAB < 3 mcg/mL (<30); Salicylate < 5.0 mg/dL (15-30)
[2023-09-16 06:30] LABS: Troponin-I High Sensitivity < 2.7 ng/L (<3.5-35.0)
--- NOTE | 2023-09-16 07:12 | PM.IMHP ---
History of Present Illness Date of Service: 09/16/23 Chief Complaint: SI, Overdose [facility] Medical History (Updated 09/16/23 @ 06:32 by Prachi Matson MD) Alcohol use disorder Major depression Suicide attempt by multiple drug overdose Drug overdose Social History Household Members: None Housing: Homeless Do you presently have visiting nurse or other home services: No Unable to assess alcohol history related to: Unable to respond Alcohol intake: current Alcohol intake frequency: 3 or more drinks per day Patient Tobacco Use Status: Current everyday Tobacco user Tobacco use type: Cigarette Cigarette Packs Per Day: 1 Cigarettes Per Day: 20.0 Smoked in Last 30 Days: Yes Second Hand Smoke Exposure: No Use of substances other than those prescribed or required for medical reasons: Yes Substance Use Type: Crack/Cocaine and Marijuana Substance Use Frequency: Daily Advance Directives: No Advance Directives Information Provided: Yes service: No Sexual orientation: Straight/Heterosexual Meds Allergies Allergy/AdvReac Type Severity Reaction Status Date / Time No Known Allergies Allergy Verified 09/07/23 20:44 Physical Exam Vital Signs and Narrative: Vital Signs: Last Vital Signs Temp 97.7 F 09/16/23 06:33 Pulse 68 09/16/23 06:33 Resp 13 09/16/23 06:33 BP 110/68 09/16/23 06:33 Pulse Ox 100 09/16/23 06:33 O2 Del Method Room Air 09/16/23 06:33 BMI result Body Mass Index 27.9 Results Labs 09/16/23 05:46 09/16/23 05:46 Labs: Laboratory Results - last 24 hr 09/16/23 09/16/23 05:26 05:46 MCV 97.7 MCH 31.7 MCHC 32.5 RDW 15.0 Plt Count 328 MPV 8.1 L Immature Gran % (Auto) 1.6 H Neut % (Auto) 48.4 Lymph % (Auto) 35.3 [place] % (Auto) 10.9 Eos % (Auto) 2.9 Baso % (Auto) 0.9 Lymph # (Auto) 3.2 [place] # (Auto) 1.0 Eos # (Auto) 0.3 Baso # (Auto) 0.1 Abs Immat Gran (auto) 0.15 H Absolute Neuts (auto) 4.4 Absolute Nucleated RBC 0.000 Nucleated RBC % (auto) 0.0 Anion Gap 16 Estim Creat Clear Calc 105.4 Estimated GFR > 60 POC Glucose 76 Random Glucose 77 Calcium 9.6 Magnesium 2.7 H Total Bilirubin 0.3 AST 44 H ALT 56 H Alkaline Phosphatase 77 Total Protein 8.2 H Albumin 4.5 Hold Red Top See Note Salicylates < 5.0 L Acetaminophen < 3 Ethyl Alcohol 115
--- NOTE | 2023-09-16 07:22 | PHA.MEDREC ---
Pharmacy Consult ? Medication Reconciliation Pharmacy has completed the medication reconciliation. Pt recently discharged from Psych floor 09/14/23. Utilized discharge packet to confirm meds.
--- NOTE | 2023-09-16 07:30 | ECG_ITS ---
Test Reason : overdose wellbutrin Blood Pressure : / mmHG Vent. Rate : 073 BPM Atrial Rate : 073 BPM P-R Int : 158 ms QRS Dur : 090 ms QT Int : 400 ms P-R-T Axes : 046 -07 031 degrees QTc Int : 440 ms Normal sinus rhythm Normal ECG When compared with ECG of 16-SEP-2023 05:27, No significant change was found Referred By: Generic ED Physician Electronically Signed By:ASHLY SALGADO MD
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
[2023-09-16] MEDS: 0.9 % Sodium Chloride Flush 3 ML SYRINGE IVFLUSH ×3 (08:02→20:28)
--- NOTE | 2023-09-16 08:59 | PC.NURSE ---
Spoke with Poison control and reported his latest vitals and his EKG results. Labs will be drawn at 9:45 am
[2023-09-16] MEDS: Omeprazole 20 MG CAPSULE.DR PO ×2 (09:07→15:36)
[2023-09-16] MEDS: Multivitamin TABLET 1 TAB PO (09:07)
[2023-09-16] MEDS: Folic Acid 1 MG TABLET PO (09:07)
[2023-09-16] MEDS: Thiamine HCL 100 MG TABLET PO (09:07)
[2023-09-16 10:40] LABS: Alanine Aminotransferase 46 U/L (0-40); Albumin Level 3.7 g/dL (3.5-5.0); Alkaline Phosphatase 59 U/L (39-117); Anion Gap 13 (12-20); Aspartate Amino Transferase 39 U/L (5-37); Bilirubin Total 0.3 mg/dL (0.0-1.0); Blood Urea Nitrogen 16 mg/dL (9-16); Calcium 8.6 mg/dL (8.4-10.2); Carbon Dioxide 27 mmol/L (22-29); Chloride 107 mmol/L (96-108); Estimated Glomerular Filt Rate > 60; Glucose Random 64 mg/dL (60-115); Potassium 4.5 mmol/L (3.3-5.1); Sodium 142 mmol/L (135-145); Total Protein 6.6 g/dL (6.5-8.0)
[2023-09-16 10:44] LABS: Acetaminophen LAB < 3 mcg/mL (<30); Salicylate < 5.0 mg/dL (15-30)
[2023-09-16 12:26] LABS: Amphetamine Screen Urine Not Detected (Not Detect); Appearance Urine Clear; Barbiturates, Urine Not Detected (Not Detect); Benzodiazepines Screen Urine POSITIVE (Not Detect); Cannabinoid Screen Urine POSITIVE (Not Detect); Cocaine Screen Urine POSITIVE (Not Detect); Color Urine Yellow; Fentanyl, urine Not Detected (Not Detect); Glucose Urine UA Negative (Negative); Leukocyte Esterase Urine Negative (Negative); Nitrite Urine Negative (Negative); Opiate Screen Urine Not Detected (Not Detect); PH 6.5 (5.0-9.0); Phencyclidine Screen Urine Not Detected (Not Detect); Urine Blood Negative (Negative); Urine Ketones Negative (Negative); Urine Protein Negative (Neg-Trace)
[2023-09-16] MEDS: diazePAM 10 MG/2 ML CARTRIDGE 5 MG IVPUSH (13:41)
--- NOTE | 2023-09-16 15:07 | PC.NURSE ---
CIWA of 5, done on the worklist but isn't showing up on the worklist.
[2023-09-16] MEDS: Ibuprofen 600 MG TABLET PO (16:25)
[2023-09-16] MEDS: Nicotine 14 MG PATCH.TD24 TRANSDERMA (16:25)
[2023-09-16] MEDS: LORazepam 1 MG TABLET PO ×2 (16:25→20:27)
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
--- NOTE | 2023-09-16 18:39 | ECG_ITS ---
Test Reason : poison control Blood Pressure : / mmHG Vent. Rate : 068 BPM Atrial Rate : 068 BPM P-R Int : 156 ms QRS Dur : 088 ms QT Int : 400 ms P-R-T Axes : 032 -07 019 degrees QTc Int : 425 ms Normal sinus rhythm Normal ECG When compared with ECG of 16-SEP-2023 13:05, No significant change was found Referred By: [facility] Electronically Signed By:ASHLY SALGADO MD
[2023-09-17] MEDS: Ibuprofen 600 MG TABLET PO ×2 (00:36→09:42)
[2023-09-17] MEDS: 0.9 % Sodium Chloride Flush 3 ML SYRINGE IVFLUSH ×5 (01:25→19:59)
[2023-09-17 04:00] VITALS: BP 118/70; PULSE 80; RESP 18; TEMP 36.4; O2SAT 98
--- NOTE | 2023-09-17 04:22 | PC.NURSE ---
Patient awake, alert and resting in bed. 1:1 supervision/sitter present at bedside with patient. At 20:00 CIWA score of 9, H/a, slight tremors and c/o anxiety. Pt. received Ativan 1mg PO at 2026 with good effect. CIWA score at 12am was 3. Pt. received Ibuprofen PRN dose at 00:36 for c/o 5/10 VAZQUEZ with good effect. Spoke with Poison control at 2111 and reviewed EKG from 1833, reporting Qt and QTc and pt. VAZQUEZ symptoms and slight tremors. At 429 this sign writer hand spoke with P. Control. Per P. Control we are signing out/off the case .
[2023-09-17] MEDS: Omeprazole 20 MG CAPSULE.DR PO ×2 (04:50→16:12)
[2023-09-17] MEDS: LORazepam 1 MG TABLET PO ×4 (04:50→19:58)
[2023-09-17 07:59] VITALS: BP 110/77; PULSE 71; RESP 20; TEMP 36.5; O2SAT 98
--- NOTE | 2023-09-17 08:47 | P.PNPSI_ITS ---
Subjective Subjective Date of Service: 09/17/23 Reason For Visit: SI Overdose Subjective Notes: Conditional Voluntary Interim History: Patient was seen and reviewed in rounds today. Records and plans were reviewed. He has been doing better and is feeling improved. Attending groups. He is visible. Occasional brief outburst. Eating and sleeping adequately. No complaints or side effects. Denies side effects to sertraline which was started a couple of days ago. No changes were made today Review of Systems Review of Systems Yes all other systems are reviewed and are negative Mental Status Exam Mental Status Exam Narrative: In today's visit he is alert, pleasant and cooperative. Normal speech. Good eye contact. Affect is appropriate and varied. No signs of acute psychosis. No SI/HI. No AVH. Cognitively is grossly intact. Judgment is intact Diagnostics Vital Signs (24Hr): Vital Signs - 24 hr 09/16/23 13:46 09/16/23 15:37 09/16/23 19:06 Temperature 97.9 F 97.2 F 97.0 F Pulse Rate 70 68 74 Respiratory Rate 19 16 18 Blood Pressure 103/63 124/65 109/69 Pulse Oximetry 98 97 97 Oxygen Delivery Method Room Air Room Air Room Air 09/16/23 23:42 09/17/23 04:00 09/17/23 07:59 Temperature 97.4 F 97.6 F 97.7 F Pulse Rate 80 80 71 Respiratory Rate 18 18 20 Blood Pressure 116/72 118/70 110/77 Pulse Oximetry 98 98 98 Oxygen Delivery Method Room Air Room Air Room Air BMI result Body Mass Index 27.9 Labs 09/16/23 05:46 09/16/23 10:01 Labs: Laboratory Results - last 48 hr 09/16/23 09/16/23 09/16/23 05:26 05:46 10:01 WBC 9.1 RBC 4.73 Hgb 15.0 Hct 46.2 MCV 97.7 MCH 31.7 MCHC 32.5 RDW 15.0 Plt Count 328 MPV 8.1 L Immature Gran % (Auto) 1.6 H Neut % (Auto) 48.4 Lymph % (Auto) 35.3 [place] % (Auto) 10.9 Eos % (Auto) 2.9 Baso % (Auto) 0.9 Lymph # (Auto) 3.2 [place] # (Auto) 1.0 Eos # (Auto) 0.3 Baso # (Auto) 0.1 Abs Immat Gran (auto) 0.15 H Absolute Neuts (auto) 4.4 Absolute Nucleated RBC 0.000 Nucleated RBC % (auto) 0.0 Sodium 144 142 Potassium 4.5 4.5 Chloride 104 107 Carbon Dioxide 29 27 Anion Gap 16 13 BUN 16 16 Creatinine 1.03 0.89 Estim Creat Clear Calc 105.4 122.0 Estimated GFR > 60 > 60 POC Glucose 76 Random Glucose 77 64 Calcium 9.6 8.6 D Magnesium 2.7 H Total Bilirubin 0.3 0.3 AST 44 H 39 H ALT 56 H 46 H Alkaline Phosphatase 77 59 Troponin I High Sens < 2.7 Total Protein 8.2 H 6.6 Albumin 4.5 3.7 Hold Red Top See Note Urine Color Urine Appearance Urine pH Ur Specific [place] Urine Protein Urine Glucose (UA) Urine Ketones Urine Blood Urine Nitrite Ur Leukocyte Esterase Salicylates < 5.0 L < 5.0 L Urine Opiates Screen Urine Fentanyl Screen Acetaminophen < 3 < 3 Ur Barbiturates Screen Ur Phencyclidine Scrn Ur Amphetamines Screen U Benzodiazepines Scrn Urine Cocaine Screen U Marijuana (THC) Screen Ethyl Alcohol 115 09/16/23 12:13 WBC RBC Hgb Hct MCV MCH MCHC RDW Plt Count MPV Immature Gran % (Auto) Neut % (Auto) Lymph % (Auto) [place] % (Auto) Eos % (Auto) Baso % (Auto) Lymph # (Auto) [place] # (Auto) Eos # (Auto) Baso # (Auto) Abs Immat Gran (auto) Absolute Neuts (auto) Absolute Nucleated RBC Nucleated RBC % (auto) Sodium Potassium Chloride Carbon Dioxide Anion Gap BUN Creatinine Estim Creat Clear Calc Estimated GFR POC Glucose Random Glucose Calcium Magnesium Total Bilirubin AST ALT Alkaline Phosphatase Troponin I High Sens Total Protein Albumin Hold Red Top Urine Color Yellow Urine Appearance Clear Urine pH 6.5 Ur Specific [place] 1.020 Urine Protein Negative Urine Glucose (UA) Negative Urine Ketones Negative Urine Blood Negative Urine Nitrite Negative Ur Leukocyte Esterase Negative Salicylates Urine Opiates Screen Not Detected Urine Fentanyl Screen Not Detected Acetaminophen Ur Barbiturates Screen Not Detected Ur Phencyclidine Scrn Not Detected Ur Amphetamines Screen Not Detected U Benzodiazepines Scrn POSITIVE H Urine Cocaine Screen POSITIVE H U Marijuana (THC) Screen POSITIVE H Ethyl Alcohol Medications Medications Current Medications Calcium Carbonate (Calcium Carbonate 750 Mg Tab.Chew) 750 mg PO Q6H PRN PRN Reason: prn acid reflux Diazepam (Diazepam 10 Mg/2 Ml Cartridge) 5 mg IVPUSH ONCE PRN PRN Reason: seizure activity Last Admin: 09/16/23 13:41 Dose: 5 mg Folic Acid (Folic Acid 1 Mg Tablet) 1 mg PO DAILY [facility] Stop: 09/19/23 08:59 Last Admin: 09/16/23 09:07 Dose: 1 mg Ibuprofen (Ibuprofen 600 Mg Tablet) 600 mg PO Q8H PRN PRN Reason: Pain, Severe (Pain Scale 7-10) Last Admin: 09/17/23 00:36 Dose: 600 mg Lorazepam (Lorazepam 1 Mg Tablet) 1 mg PO Q4H PRN PRN Reason: Breakthrough alcohol withdrawa Stop: 09/20/23 08:24 Last Admin: 09/17/23 04:50 Dose: 1 mg Multivitamins/Vitamin C (Multivitamin Tablet) 1 tab PO DAILY [facility] Stop: 09/19/23 08:59 Last Admin: 09/16/23 09:07 Dose: 1 tab Nicotine (Nicotine 14 Mg Patch.Td24) 14 mg TRANSDERMA DAILY [facility] Last Admin: 09/16/23 16:25 Dose: 14 mg Omeprazole (Omeprazole 20 Mg Capsule.Dr) 20 mg PO BID@0630,1630 [facility] Last Admin: 09/17/23 04:50 Dose: 20 mg Ondansetron HCl (Ondansetron Hcl 4 Mg/2 Ml Vial) 4 mg IVPUSH Q8H PRN PRN Reason: Nausea and Vomiting Sodium Chloride (0.9 % Sodium Chloride Flush 3 Ml Syringe) 3 ml IVFLUSH QSUTFT [facility] Last Admin: 09/16/23 20:28 Dose: 3 ml Sodium Chloride (0.9 % Sodium Chloride Flush 3 Ml Syringe) 3 ml IVFLUSH QSHIFT [facility] Last Admin: 09/17/23 01:25 Dose: 3 ml Thiamine HCl (Thiamine Hcl 100 Mg Tablet) 100 mg PO DAILY [facility] Stop: 09/19/23 08:59 Last Admin: 09/16/23 09:07 Dose: 100 mg Allergies Allergies Allergy/AdvReac Type Severity Reaction Status Date / Time No Known Allergies Allergy Verified 09/07/23 20:44 Assessment & Plan Assessment & Plan (1) Suicide attempt: Status: Acute Code(s): T14.91XA - Suicide attempt, initial encounter (2) Drug overdose: Status: Acute Code(s): T50.901A - Poisoning by unspecified drugs, medicaments and biological substances, accidental (unintentional), initial encounter (3) Major depression: Status: Acute Code(s): F32.9 - Major depressive disorder, single episode, unspecified (4) Alcohol use disorder: Status: Acute Code(s): F10.90 - Alcohol use, unspecified, uncomplicated Plan 1. Polypharmacy Drug Overdose/Suicide Attempt: Pt reports ingestion of (3) 150mg welbutrin tablets, (2) 20mg paxil tablets, 80mg PO THC tablets in suicide attempt. Patient has had ongoing SI for approximately 1 year now, last admitted to [facility] hosp last week w/ dc 2 days ago. Ongoing social stressors including divorce litigation/homelessness. ED spoke to poison control whom recommended p.o. charcoal, fluids, seizure precautions, admit. Tele nsr, normal intervals. Currently on section 12. Plan: -tele -ekg prn tele changes -hold home wellbutrin/paxil -constant revenue settlements administrator -? SW consult -psych consult 2. Alcohol Use Disorder: per patient sober for 10 years and started drinking again approx 5 months ago. Last drank 10 nips 100 proof root beer 09/15/2023. Per pt no hx of w/d seizures. has very mild transaminitis likely 2/2 to etoh ingestion. Plan: -tele -CIWA -prn ativan -seizure precautions -PO thiamine/folate/MV -prn zofran 3. History of GERD: no report of abd pain. Plan: -continue home PPI -prn maalox Full code reg diet DVT PPx: low risk, encourage early ambulation 09/17/2023: Continue current plans and regimen Reason for continued inpatient stay Substantial Risk for: med/psych decompensation Time Spent With Patient Time: Total time managing care of this patient today ____ minutes.
--- NOTE | 2023-09-17 09:36 | HO.PM.IMPN ---
Subjective Subjective Date of Service: 09/17/23 Interval History: Seen in follow up for depression, intentional OD Interval history: Reports depression, still with active SI, no plan. Otherwise no complaints, no overnight events Review of Systems Review of Systems: Yes all other systems are reviewed and are negative Physical Exam Vital Signs: Vital Signs: Last Vital Signs Temp 97.7 F 09/17/23 07:59 Pulse 71 09/17/23 07:59 Resp 20 09/17/23 07:59 BP 110/77 09/17/23 07:59 Pulse Ox 98 09/17/23 07:59 O2 Del Method Room Air 09/17/23 07:59 BMI result Body Mass Index 27.9 Constitutional - Awake and Alert, No apparent distress Eyes - PERRLA, EOMI Cardiovascular - S1S2, RRR, No edema Respiratory - Normal lung expansion, Normal respiratory effort, No respiratory distress, CTA bilaterally Gastrointestinal - NT / ND; +BS; No rebound or guarding Extremities - no calf tenderness bilaterally, no swelling Skin - Warm/Dry Neurological - Alert & oriented x3 Psychological - depressed mood, flat affect Objective Data Active Medications Calcium Carbonate (Calcium Carbonate 750 Mg Tab.Chew) 750 mg PO Q6H PRN PRN Reason: prn acid reflux Diazepam (Diazepam 10 Mg/2 Ml Cartridge) 5 mg IVPUSH ONCE PRN PRN Reason: seizure activity Last Admin: 09/16/23 13:41 Dose: 5 mg Documented By: FRANK Folic Acid (Folic Acid 1 Mg Tablet) 1 mg PO DAILY [facility] Stop: 09/19/23 08:59 Last Admin: 09/16/23 09:07 Dose: 1 mg Documented By: FRANK Ibuprofen (Ibuprofen 600 Mg Tablet) 600 mg PO Q8H PRN PRN Reason: Pain, Severe (Pain Scale 7-10) Last Admin: 09/17/23 00:36 Dose: 600 mg Documented By: JEFF Lorazepam (Lorazepam 1 Mg Tablet) 1 mg PO Q4H PRN PRN Reason: Breakthrough alcohol withdrawa Stop: 09/20/23 08:24 Last Admin: 09/17/23 04:50 Dose: 1 mg Documented By: JEFF Multivitamins/Vitamin C (Multivitamin Tablet) 1 tab PO DAILY [facility] Stop: 09/19/23 08:59 Last Admin: 09/16/23 09:07 Dose: 1 tab Documented By: FRANK Nicotine (Nicotine 14 Mg Patch.Td24) 14 mg TRANSDERMA DAILY [facility] Last Admin: 09/16/23 16:25 Dose: 14 mg Documented By: BOZENA Omeprazole (Omeprazole 20 Mg Capsule.Dr) 20 mg PO BID@0630,1630 [facility] Last Admin: 09/17/23 04:50 Dose: 20 mg Documented By: JEFF Ondansetron HCl (Ondansetron Hcl 4 Mg/2 Ml Vial) 4 mg IVPUSH Q8H PRN PRN Reason: Nausea and Vomiting Sodium Chloride (0.9 % Sodium Chloride Flush 3 Ml Syringe) [facility] Last Admin: 09/16/23 20:28 Dose: 3 ml Documented By: JEFF Sodium Chloride (0.9 % Sodium Chloride Flush 3 Ml Syringe) 3 ml IVFLUSH [facility] Last Admin: 09/17/23 01:25 Dose: 3 ml Documented By: JEFF Thiamine HCl (Thiamine Hcl 100 Mg Tablet) 100 mg PO DAILY [facility] Stop: 09/19/23 08:59 Last Admin: 09/16/23 09:07 Dose: 100 mg Documented By: FRANK Labs 09/16/23 05:46 09/16/23 10:01 Labs: Laboratory Results - last 24 hr 09/16/23 09/16/23 10:01 12:13 Anion Gap 13 Estim Creat Clear Calc 122.0 Estimated GFR > 60 Random Glucose 64 Calcium 8.6 D Total Bilirubin 0.3 AST 39 H ALT 46 H Alkaline Phosphatase 59 Total Protein 6.6 Albumin 3.7 Urine Color Yellow Urine Appearance Clear Urine pH 6.5 Ur Specific [place] 1.020 Urine Protein Negative Urine Glucose (UA) Negative Urine Ketones Negative Urine Blood Negative Urine Nitrite Negative Ur Leukocyte Esterase Negative Salicylates < 5.0 L Urine Opiates Screen Not Detected Urine Fentanyl Screen Not Detected Acetaminophen < 3 Ur Barbiturates Screen Not Detected Ur Phencyclidine Scrn Not Detected Ur Amphetamines Screen Not Detected U Benzodiazepines Scrn POSITIVE H Urine Cocaine Screen POSITIVE H U Marijuana (THC) Screen POSITIVE H Assessment and Plan (1) Suicide attempt: Status: Acute (2) Drug overdose: Status: Acute (3) Major depression: Status: Acute (4) Alcohol use disorder: Status: Acute Plan Pt with history of MDD, alcohol use disorder admitted for further monitoring following intentional OD. Poison control has signed off case, medically cleared at this time #Intentional overdose as SI attempt in setting of decompensated MDD -Ingested (3) 150mg welbutrin tablets, (2) 20mg paxil tablets, 80mg PO THC tablets with 10 nips etoh in suicide attempt -Dc'd from [facility] 2 days ago -Poison control recommended activated charcoal, IVF, seziure precautions -No seizures observed -Observed overnight. EKG with stable qt and qtc. Poison control signed off case -Section 12, sitter -At this time patient medically cleared, will consult care team for LOC/disposition #Alcohol use disorder -sober x 10 years with relapse 5 months ago -no hx withdrawal seizure -Monitored on CIWA without evidence of withdrawal -Continue thiamine/folic acid #GERD -ppi DVT prophylaxis- early ambulation Full code Ongoing inpt stay: awaiting safe dispo pending care team evaluation Quality Stroke Does the patient have a stroke diagnosis?: No VTE Prior VTE?: No VTE Risk Level:: Medical - low VTE Device Contraindication: Treatment Not Indicated VTE Drug Contraindication: Treatment Not Indicated
[2023-09-17] MEDS: Multivitamin TABLET 1 TAB PO (09:40)
[2023-09-17] MEDS: Folic Acid 1 MG TABLET PO (09:40)
[2023-09-17] MEDS: Thiamine HCL 100 MG TABLET PO (09:40)
[2023-09-17] MEDS: Nicotine 14 MG PATCH.TD24 TRANSDERMA (09:40)
[2023-09-17 11:23] VITALS: BP 120/72; PULSE 63; RESP 20; TEMP 36.3; O2SAT 97
[2023-09-17] MEDS: hydrOXYzine HCL 25 MG TABLET PO ×2 (13:02→22:59)
[2023-09-17 15:35] VITALS: BP 134/65; PULSE 66; RESP 16; TEMP 36.9; O2SAT 98
--- NOTE | 2023-09-17 19:05 | MHC.CARE ---
patient pending [facility] admission.
[2023-09-17 19:27] VITALS: BP 113/64; PULSE 73; RESP 18; TEMP 36.6; O2SAT 97
[2023-09-17] MEDS: traZODone HCL 25 MG HALFTAB PO (21:27)
[2023-09-17 22:55] VITALS: BP 112/69; PULSE 80; RESP 18; TEMP 36.4; O2SAT 96
--- NOTE | 2023-09-18 | ECG_ITS ---
Test Reason : CP Blood Pressure : / mmHG Vent. Rate : 067 BPM Atrial Rate : 067 BPM P-R Int : 152 ms QRS Dur : 086 ms QT Int : 392 ms P-R-T Axes : 043 -05 023 degrees QTc Int : 414 ms Normal sinus rhythm Normal ECG When compared with ECG of 16-SEP-2023 18:34, No significant change was found Referred By: [facility] Electronically Signed By:VÍCTOR BOYLE
[2023-09-18] MEDS: LORazepam 1 MG TABLET PO ×4 (02:17→18:07)
[2023-09-18] MEDS: 0.9 % Sodium Chloride Flush 3 ML SYRINGE IVFLUSH ×3 (02:17→19:43)
[2023-09-18 02:22] VITALS: BP 123/76; PULSE 74; RESP 18; TEMP 36.4; O2SAT 98
[2023-09-18] MEDS: Omeprazole 20 MG CAPSULE.DR PO ×2 (05:46→17:05)
[2023-09-18 07:48] VITALS: BP 122/75; PULSE 71; RESP 18; TEMP 36.2; O2SAT 97
[2023-09-18] MEDS: Nicotine 14 MG PATCH.TD24 TRANSDERMA (08:45)
[2023-09-18] MEDS: Multivitamin TABLET 1 TAB PO (08:45)
[2023-09-18] MEDS: Thiamine HCL 100 MG TABLET PO (08:45)
[2023-09-18] MEDS: Folic Acid 1 MG TABLET PO (08:45)
[2023-09-18 11:29] VITALS: BP 120/63; PULSE 70; RESP 18; TEMP 36.8; O2SAT 97
--- NOTE | 2023-09-18 13:04 | HO.PM.IMPN ---
Subjective Subjective Date of Service: 09/18/23 Interval History: Seen in follow up for depression, intentional OD Active SI, and has sitter Physical Exam Vital Signs: Vital Signs: Last Vital Signs Temp 98.2 F 09/18/23 11:29 Pulse 70 09/18/23 11:29 Resp 18 09/18/23 11:29 BP 120/63 09/18/23 11:29 Pulse Ox 97 09/18/23 11:29 O2 Del Method Room Air 09/18/23 11:29 BMI result Body Mass Index 27.9 Const: Other: Constitutional: Well appearing, year old male, NAD HEENT: No lymphadenopathy, no scleral icterae, no JVD Cardiovascular: S1/S2 heard, No MRG Respiratory: Lung sounds CTA bilaterally Gastrointestinal: Normal BS throughout, neg murphys. : Deferred Neuro: No FND, moving all 4 extremities spontaneously Psych: Calm/cooperative IV Line: Objective Data Active Medications Bupropion HCl (Bupropion Hcl Xl 150 Mg Tab.Er.24h) 150 mg PO DAILY [facility]VEN Calcium Carbonate (Calcium Carbonate 750 Mg Tab.Chew) 750 mg PO Q6H PRN PRN Reason: prn acid reflux Diazepam (Diazepam 10 Mg/2 Ml Cartridge) 5 mg IVPUSH ONCE PRN PRN Reason: seizure activity Last Admin: 09/16/23 13:41 Dose: 5 mg Documented By: FRANK Folic Acid (Folic Acid 1 Mg Tablet) 1 mg PO DAILY [facility] Stop: 09/19/23 08:59 Last Admin: 09/18/23 08:45 Dose: 1 mg Documented By: RASHAD Hydroxyzine HCl (Hydroxyzine Hcl 25 Mg Tablet) 25 mg PO Q8H PRN PRN Reason: anxiety/aggitation Last Admin: 09/17/23 22:59 Dose: 25 mg Documented By: LEO Ibuprofen (Ibuprofen 600 Mg Tablet) 600 mg PO Q8H PRN PRN Reason: Pain, Severe (Pain Scale 7-10) Last Admin: 09/17/23 09:42 Dose: 600 mg Documented By: RASHAD Lorazepam (Lorazepam 1 Mg Tablet) 1 mg PO Q4H PRN PRN Reason: Breakthrough alcohol withdrawa Stop: 09/20/23 08:24 Last Admin: 09/18/23 12:12 Dose: 1 mg Documented By: RASHAD Multivitamins/Vitamin C (Multivitamin Tablet) 1 tab PO DAILY [facility] Stop: 09/19/23 08:59 Last Admin: 09/18/23 08:45 Dose: 1 tab Documented By: RASHAD Nicotine (Nicotine 14 Mg Patch.Td24) 14 mg TRANSDERMA DAILY [facility] Last Admin: 09/18/23 08:45 Dose: 14 mg Documented By: RASHAD Omeprazole (Omeprazole 20 Mg Capsule.Dr) 20 mg PO BID@0630,1630 [facility] Last Admin: 09/18/23 05:46 Dose: 20 mg Documented By: LEO Ondansetron HCl (Ondansetron Hcl 4 Mg/2 Ml Vial) 4 mg IVPUSH Q8H PRN PRN Reason: Nausea and Vomiting Paroxetine HCl (Paroxetine Hcl 20 Mg Tablet) 20 mg PO DAILY [facility] Sodium Chloride (0.9 % Sodium Chloride Flush 3 Ml Syringe) 3 ml IVFLUSH QSINFT [facility] Last Admin: 09/18/23 02:17 Dose: 3 ml Documented By: LEO Sodium Chloride (0.9 % Sodium Chloride Flush 3 Ml Syringe) 3 ml IVFLUSH [facility] Last Admin: 09/18/23 08:48 Dose: Not Given Documented By: RASHAD Non-Admin Reason: duplicate order Thiamine HCl (Thiamine Hcl 100 Mg Tablet) 100 mg PO DAILY [facility] Stop: 09/19/23 08:59 Last Admin: 09/18/23 08:45 Dose: 100 mg Documented By: RASHAD Trazodone HCl (Trazodone Hcl 25 Mg Halftab) 25 mg PO BEDTIME PRN PRN Reason: Insomnia Last Admin: 09/17/23 21:27 Dose: 25 mg Documented By: LEO Labs 09/16/23 05:46 09/16/23 10:01 Assessment and Plan (1) Suicide attempt: Status: Acute (2) Drug overdose: Status: Acute (3) Major depression: Status: Acute (4) Alcohol use disorder: Status: Acute Plan Pt with history of MDD, alcohol use disorder admitted for further monitoring following intentional OD. Poison control has signed off case, medically cleared at this time #Intentional overdose as SI attempt in setting of decompensated MDD -Ingested (3) 150mg welbutrin tablets, (2) 20mg paxil tablets, 80mg PO THC tablets with 10 nips etoh in suicide attempt -Dc'd from [facility] psych 2 days ago -Poison control recommended activated charcoal, IVF, seziure precautions -No seizures observed -Observed overnight. EKG with stable qt and qtc. Poison control signed off case -Section 12, sitter -At this time patient medically and awaiting a Psych bed -restart meds #Alcohol use disorder -sober x 10 years with relapse 5 months ago -no hx withdrawal seizure -Monitored on CIWA without evidence of withdrawal -Continue thiamine/folic acid #GERD -ppi DVT prophylaxis- early ambulation Full code Ongoing inpt stay: Need inpt Psych admission for SI Quality Stroke Does the patient have a stroke diagnosis?: No VTE Prior VTE?: No VTE Risk Level:: Medical - low VTE Device Contraindication: Treatment Not Indicated VTE Drug Contraindication: Treatment Not Indicated
[2023-09-18] MEDS: buPROPion HCl XL 150 MG TAB.ER.24H PO (13:13)
[2023-09-18] MEDS: PARoxetine HCL 20 MG TABLET PO (13:13)
--- NOTE | 2023-09-18 13:39 | MHC.CM.PN ---
Pt was living in his car, he does not have PCP, or HCP, declined to name HCP or for CM to find an appt with PCP. DC plan Care team TBD.
[2023-09-18 15:54] VITALS: BP 123/74; PULSE 71; RESP 16; TEMP 35.9; O2SAT 98
[2023-09-18] MEDS: hydrOXYzine HCL 25 MG TABLET PO (17:05)
[2023-09-18 18:02] VITALS: BP 131/82; PULSE 81; RESP 16; TEMP 36.5; O2SAT 99
[2023-09-18] MEDS: Ibuprofen 600 MG TABLET PO (19:42)
[2023-09-18] MEDS: traZODone HCL 25 MG HALFTAB PO (21:45)
[2023-09-19 04:00] VITALS: BP 103/62; PULSE 64; RESP 16; TEMP 36.1; O2SAT 97
[2023-09-19] MEDS: LORazepam 1 MG TABLET PO ×3 (04:24→13:45)
[2023-09-19] MEDS: Omeprazole 20 MG CAPSULE.DR PO (05:24)
[2023-09-19 07:57] VITALS: BP 109/68; PULSE 66; RESP 15; TEMP 36.2; O2SAT 97
[2023-09-19] MEDS: Ibuprofen 600 MG TABLET PO (08:25)
[2023-09-19] MEDS: 0.9 % Sodium Chloride Flush 3 ML SYRINGE IVFLUSH (08:25)
[2023-09-19] MEDS: buPROPion HCl XL 150 MG TAB.ER.24H PO (08:26)
[2023-09-19] MEDS: PARoxetine HCL 20 MG TABLET PO (08:26)
[2023-09-19] MEDS: Nicotine 14 MG PATCH.TD24 TRANSDERMA (08:26)
--- NOTE | 2023-09-19 09:10 | P.DS_ITS ---
DS: Providers Provider Date of Service: 09/19/23 Date of admission: 09/16/23 07:19 Primary care physician: Unknown Physician Consults: 09/16/23 05:32 Consult to Care Team Routine Comment: Reason for consultation: si 09/16/23 08:25 Consult to Psychiatry Routine Consulting Provider: Psych Covering Reason for consultation: SI, polypharmacy overdose Has provider been notified: No 09/17/23 13:47 Consult to Care Team Routine Comment: Reason for consultation: medically cleared. intentional OD, depression. LOC eval DS: Diagnosis Discharge Diagnosis (1) Suicide attempt: Status: Acute (2) Drug overdose: Status: Acute (3) Major depression: Status: Acute (4) Alcohol use disorder: Status: Acute DS: Summary Hospital Course Hospital Course: admission hpi: Chief Complaint: SI, overdose 43 year old male PMH GERD, alcohol use disorder, depression/anxiety presented to ED 09/16/2023 in the setting of SI, polypharmacy overdose. Patient states he has increased social stressors including ongoing divorce litigation and homelessness for the past 1 years. Patient is currently living out of his car. Patient states last night, 09/17/2023 he was in the [place] and shop parking lot in [place] and security found him sleepy, he states they forced me to leave, and I walked here. He states he ingested approximately 3 tablets of Wellbutrin totatling 450 mg, 2 tablets of Paxil, 80 mg of PO marijuana and drank 10 nips of 100 proof root beer in an attempt to end his life. He has had ongoing suicidal thoughts for the past 5-6 months. He also smokes crack/cocaine, last use 09/15/2023. He states he was sober from alcohol for 10 years prior to last january 2023 when he started drinking again. He states he was admitted last week to [facility] psychiatric floor where he was treated for SI. Patient denies any syncope, chest pain, dyspnea, history of alcohol withdrawal seizures. Patient is on section 12. Per ED note, pt arrived via walk-in [facility] ED, VS obtained, wnl, ekg nsr w/ normal intervals, labs notable for mild transaminitis AST/ALT: 44/56, otherwise cbc/bmp unremarkable, pt given 50mg PO activated charcoal. Transferred to medical service. Patient was last admitted 09/08/2023 w/ initial ED presentation 10/07/ in setting of overdose and alcohol use w/ SI, discharged 09/14/2023 Hospital course: The patient presented with a suicide attempt by intentional Bupropion and Paroxetine overdose. He was treated with activated charcoal and subsequently monitored on cardiac telemetry for any change in rhythm or QTc. He has had no arrhythmia, and QTc is within the normal range. He no longer has active suicidal ideation and was assess by the care team and deemed apropriate to release from the hospital. On further discussion with the patient, he reafirms that he has no suicidal ideation at this time and will follo w Restarted on Bupropion and Paroxetine Time Attestation Discharge coordination time: Greater than 30 minutes Quality: Safe Use of Opioids Does Pt have an Active Cancer Diagnosis on the Problem List?: No Quality: Stroke Does the patient have a stroke diagnosis?: No Physical Exam Vital Signs: Vital Signs: Last Vital Signs Temp 97.1 F 09/19/23 07:57 Pulse 66 09/19/23 07:57 Resp 15 09/19/23 07:57 BP 109/68 09/19/23 07:57 Pulse Ox 97 09/19/23 07:57 O2 Del Method Room Air 09/19/23 07:57 BMI result Body Mass Index 27.9 Const: Other: General: AO X 3, no acute distress Resp: CTA bilateral CVS: S1,S2,RRR GI: +BS, NT, no distention Skin: No rash Neuro: motor grossly intact Psych: appropriate affect Discharge Plan Discharge Anticipated Discharge Date/Time: 09/19/23 15:05 Patient Disposition: Home, Self-Care Discharge Diagnosis: Depression, Suicide ideation Referrals: Physician,Unknown J [Primary Care Provider] - 1 Week Discharge Medications: Continued bupropion HCl 150 mg Tablet Extended Release 24 Hr 150 mg PO DAILY 30 Days Qty: 30 0RF omeprazole 20 mg Capsule,Delayed Release(Dr/Ec) 20 mg PO BID@0630,1630 30 Days Qty: 60 0RF paroxetine HCl 20 mg Tablet 20 mg PO DAILY 30 Days Qty: 30 0RF Discharge Orders: Discharge Order (Routine); Ordered 09/19/23 Ordered By: Kb Jacobs Diet: Advance to usual diet Activity on Discharge: As tolerated Stand Alone Forms: Patient Portal Discharge page, Work/School Release Care Plan Goals: suicide prevention and treatement of depression Health Concerns: suicide ideation Plan of Treatment: inpatient psychitric treatment Assessment: see above
--- NOTE | 2023-09-19 09:22 | HO.PM.IMPN ---
Subjective Subjective Date of Service: 09/19/23 Interval History: Seen in follow up for depression, intentional OD still with SI Physical Exam Vital Signs: Vital Signs: Last Vital Signs Temp 97.1 F 09/19/23 07:57 Pulse 66 09/19/23 07:57 Resp 15 09/19/23 07:57 BP 109/68 09/19/23 07:57 Pulse Ox 97 09/19/23 07:57 O2 Del Method Room Air 09/19/23 07:57 BMI result Body Mass Index 27.9 Const: Other: General: AO X 3, no acute distress Resp: CTA bilateral CVS: S1,S2,RRR GI: +BS, NT, no distention Skin: No rash Neuro: motor grossly intact Psych: appropriate affect Objective Data Active Medications Bupropion HCl (Bupropion Hcl Xl 150 Mg Tab.Er.24h) 150 mg PO DAILY [facility] Last Admin: 09/19/23 08:26 Dose: 150 mg Documented By: WILL Calcium Carbonate (Calcium Carbonate 750 Mg Tab.Chew) 750 mg PO Q6H PRN PRN Reason: prn acid reflux Diazepam (Diazepam 10 Mg/2 Ml Cartridge) 5 mg IVPUSH ONCE PRN PRN Reason: seizure activity Last Admin: 09/16/23 13:41 Dose: 5 mg Documented By: FRANK Hydroxyzine HCl (Hydroxyzine Hcl 25 Mg Tablet) 25 mg PO Q8H PRN PRN Reason: anxiety/aggitation Last Admin: 09/18/23 17:05 Dose: 25 mg Documented By: ELDER Ibuprofen (Ibuprofen 600 Mg Tablet) 600 mg PO Q8H PRN PRN Reason: Pain, Severe (Pain Scale 7-10) Last Admin: 09/19/23 08:25 Dose: 600 mg Documented By: WILL Lorazepam (Lorazepam 1 Mg Tablet) 1 mg PO Q4H PRN PRN Reason: Breakthrough alcohol withdrawa Stop: 09/20/23 08:24 Last Admin: 09/19/23 09:21 Dose: 1 mg Documented By: NONA Nicotine (Nicotine 14 Mg Patch.Td24) 14 mg TRANSDERMA DAILY [facility] Last Admin: 09/19/23 08:26 Dose: 14 mg Documented By: WILL Omeprazole (Omeprazole 20 Mg Capsule.Dr) 20 mg PO BID@0630,1630 [facility] Last Admin: 09/19/23 05:24 Dose: 20 mg Documented By: KRZYSZTOF Ondansetron HCl (Ondansetron Hcl 4 Mg/2 Ml Vial) 4 mg IVPUSH Q8H PRN PRN Reason: Nausea and Vomiting Paroxetine HCl (Paroxetine Hcl 20 Mg Tablet) 20 mg PO DAILY [facility] Last Admin: 09/19/23 08:26 Dose: 20 mg Documented By: WILL Sodium Chloride (0.9 % Sodium Chloride Flush 3 Ml Syringe) 3 ml IVFLUSH [facility] Last Admin: 09/19/23 08:25 Dose: 3 ml Documented By: WILL Sodium Chloride (0.9 % Sodium Chloride Flush 3 Ml Syringe) 3 ml IVFLUSH [facility] Last Admin: 09/19/23 07:27 Dose: Not Given Documented By: WILL Non-Admin Reason: Duplicate Order Trazodone HCl (Trazodone Hcl 25 Mg Halftab) 25 mg PO BEDTIME PRN PRN Reason: Insomnia Last Admin: 09/18/23 21:45 Dose: 25 mg Documented By: KRZYSZTOF Labs 09/16/23 05:46 09/16/23 10:01 Assessment and Plan (1) Suicide attempt: Status: Acute (2) Drug overdose: Status: Acute (3) Major depression: Status: Acute (4) Alcohol use disorder: Status: Acute Plan Pt with history of MDD, alcohol use disorder admitted for further monitoring following intentional OD. Poison control has signed off case, medically cleared at this time #Intentional overdose as SI attempt in setting of decompensated MDD -Ingested (3) 150mg welbutrin tablets, (2) 20mg paxil tablets, 80mg PO THC tablets with 10 nips etoh in suicide attempt -Dc'd from [facility] psych 2 days prior to admission -Poison control recommended activated charcoal, IVF, seziure precautions -No seizures observed, normal qtc, poison control signed off -awaiting inpatient psych bed #Alcohol use disorder -sober x 10 years with relapse 5 months ago -no hx withdrawal seizure -Monitored on CIWA without evidence of withdrawal -Continue thiamine/folic acid #GERD -ppi DVT prophylaxis- early ambulation Full code Ongoing inpt stay: Need inpt Psych admission for SI Quality Stroke Does the patient have a stroke diagnosis?: No VTE Prior VTE?: No VTE Risk Level:: Medical - low VTE Device Contraindication: Treatment Not Indicated VTE Drug Contraindication: Treatment Not Indicated
--- NOTE | 2023-09-19 10:51 | MHC.CM.PN ---
Addendum entered by Shakira Ruano 09/19/23 15:34: PT CLEARED TO DC [facility] HE REPORTS HE LIVES IN HIS CAR WHICH IS HERE IN THE LOT HE REPORTS HE PLANS TO GO GET A ROOM FOR THE NIGHT PT SAYS HE SEES A PCP AT [facility] [place] HE WILL DC WITH NO SERVICES Original Note: PT MEDICALLY CLEARED, AWAITING IPLOC ADMISSION CARE TEAM CONDUCTING BED SEARCH
--- NOTE | 2023-09-19 13:58 | MHC.CARE ---
RAD Team conducted a statewide bedsearch, referral sent to [facility], [place], [place], [facility] and [facility], [facility], [place], [facility], [place], [facility], [facility], [facility], [place], [facility], [facility], [place], [facility], [place], [place], [facility], [place], [place], [place], [place], [place], [facility], [facility], [facility], [place], [place], [facility], [facility], [facility], [place], [place], [place], [place], [facility], [place], [facility], [place], [facility], [place], [place], [place], [place], [facility]. RAD Team to f/u with facilities and continue bedsearch tomorrow (09/20) if deemed necessary.
[2023-09-19 15:38] VITALS: BP 123/74; PULSE 84; TEMP 36.3; O2SAT 98
== END 2023-09-19 15:57 | disposition home or self-care (01) | DRG 812 ==
LOC: HO.ED 06:32 → HO.EDOVER 07:37 → HO.IMC 14:43 → HO.S3 09-18 15:10
PROVIDERS: Admitting Provider Physician Assistant Medical; Emergency Provider Emergency Medicine; Visit Provider Internal Medicine
DX: T43.222A Poisoning by selective serotonin reuptake inhibitors, intentional self-harm, initial encounter (principal); F32.9 Major depressive disorder, single episode, unspecified; F17.210 Nicotine dependence, cigarettes, uncomplicated; F10.10 Alcohol abuse, uncomplicated; K21.9 Gastro-esophageal reflux disease without esophagitis; T43.292A Poisoning by other antidepressants, intentional self-harm, initial encounter; Z71.6 Tobacco abuse counseling; Y90.5 Blood alcohol level of 100-119 mg/100 ml; Z59.02 Unsheltered homelessness; Z79.899 Other long term (current) drug therapy
CPT/HCPCS: 36415; 80053; 80143; 80179; 80307; 81003; 82947; 83735; 84484; 85025; 93005; 99285; J3360; S9485

== ENCOUNTER → 2023-09-16 05:27 | Outpatient (BNV) | payer BC, SELFPAY | PROVIDERS: Admitting Provider Physician Assistant Medical; Emergency Provider Emergency Medicine; Visit Provider Internal Medicine Cardiovascular Disease | DX: R07.9 Chest pain, unspecified (principal) | CPT/HCPCS: 93010 ==

== ENCOUNTER 2023-09-16 07:19 | Outpatient (BNV) | payer BC, SELFPAY | END 2023-09-18 11:04 | PROVIDERS: Admitting Provider Physician Assistant Medical; Emergency Provider Emergency Medicine; Visit Provider Internal Medicine | DX: R07.9 Chest pain, unspecified (principal) | CPT/HCPCS: 93010 ==

== ENCOUNTER → 2023-09-16 07:19 | Outpatient (BNV) | payer BC, SELFPAY | PROVIDERS: Admitting Provider Physician Assistant Medical; Emergency Provider Emergency Medicine; Visit Provider Physician Assistant | DX: T14.91XA Suicide attempt, initial encounter (principal); T50.902A Poisoning by unspecified drugs, medicaments and biological substances, intentional self-harm, initial encounter; F32.9 Major depressive disorder, single episode, unspecified; F10.90 Alcohol use, unspecified, uncomplicated; Z59.00 Homelessness unspecified | CPT/HCPCS: 99232; 99239 ==

== ENCOUNTER → 2023-09-16 07:19 | Outpatient (BNV) | payer BC, SELFPAY | PROVIDERS: Admitting Provider Physician Assistant Medical; Emergency Provider Emergency Medicine; Visit Provider Psychiatry & Neurology Psychiatry | DX: F33.2 Major depressive disorder, recurrent severe without psychotic features (principal); T14.91XA Suicide attempt, initial encounter; T50.901A Poisoning by unspecified drugs, medicaments and biological substances, accidental (unintentional), initial encounter; F10.90 Alcohol use, unspecified, uncomplicated | CPT/HCPCS: 99231; 99254 ==

== ENCOUNTER 2023-11-17 21:20 | Inpatient (IN) | payer BC, SELFPAY ==
[2023-11-17 21:25] VITALS: BP 95/64; PULSE 101; RESP 16; TEMP 36.4; O2SAT 95; BMI 29.3
--- NOTE | 2023-11-17 21:52 | ECG_ITS ---
Test Reason : OVERDOSE Blood Pressure : / mmHG Vent. Rate : 083 BPM Atrial Rate : 083 BPM P-R Int : 148 ms QRS Dur : 088 ms QT Int : 364 ms P-R-T Axes : 036 -03 028 degrees QTc Int : 427 ms Normal sinus rhythm Normal ECG When compared with ECG of 18-SEP-2023 11:04, No significant change was found Referred By: Zoe Mckenzie Electronically Signed By:ASHLY SALGADO MD
--- NOTE | 2023-11-17 21:53 | ED.PSYCH ---
HPI - Psych General Chief Complaint: Psychiatric Symptoms Stated Complaint: suicide thoughts/on the hotline now Time Seen by Provider: 11/17/23 21:37 Source: patient and old records reviewed Mode of arrival: EMS Limitations: no limitations History of Present Illness HPI Narrative: 43 yo male with PMH of depression, ETOH abuse, GERD states he is depressed and attempted to take his life tonight with ETOH 40mg of his paroxetine and he thinks 450mg ER wellbutrin sometime tonight in attempt. He denies other ingestion. MD complaint: suicidal ideation and feels depressed Onset (ago): month(s) Duration: getting worse History of same: Yes Relieving factors: none Exacerbating factors: other Context: significant life stressor Associated psychiatric symptoms: depression and suicidal ideation Associated symptoms: denies other symptoms If self harm: admits thoughts of self harm, has plan and has acted on plan Related Data Previous Rx's Medication Instructions Recorded bupropion HCl 150 mg 24 hr tablet, 150 mg PO DAILY 30 days #30 tabs 09/13/23 extended release omeprazole 20 mg capsule,delayed 20 mg PO BID@0630,1630 30 days #60 09/13/23 release caps paroxetine HCl 20 mg tablet 20 mg PO DAILY 30 days #30 tabs 09/13/23 Allergies Allergy/AdvReac Type Severity Reaction Status Date / Time No Known Allergies Allergy Verified 09/07/23 20:44 Review of Systems Review of Systems: Constitutional : No Fever, No Chills ENT/Mouth : No Ear Pain, No Nasal Congestion, No sore throat Eyes: No Eye Pain, No Swelling, No Redness Cardiovascular : No Chest Pain, No SOB Respiratory : No Cough, No Sputum, No Dyspnea Gastrointestinal : No Nausea, No Vomiting, No Diarrhea, No Hematochezia, No Melena Genitourinary : No Dysuria, No Urinary Frequency, No Hematuria Musculoskeletal : No Myalgias Skin : No Skin Lesions, No rash Neuro : No Weakness, No Numbness, No Paresthesias, No Dizziness, No Headache Psych : positive Anxiety, positive Depression, positive SI no HI Heme/Lymph: No Lymphadenopathy Endocrine : No Polyuria, No Polydipsia All other systems reviewed and are negative PMFSH Past Medical History Attestation statement: The following information was validated with the patient. Source: old records reviewed Medical History Alcohol use disorder Major depression Suicide attempt by multiple drug overdose Drug overdose Social History Social History Household Members: None and Other Housing: Other Housing Other:: In Car Do you presently have visiting nurse or other home services: No Unable to assess alcohol history related to: Unable to respond Alcohol intake: current Alcohol intake frequency: 3 or more drinks per day Comment: 1:1 sitter Patient Tobacco Use Status: Current everyday Tobacco user Tobacco use type: Cigarette Cigarette Packs Per Day: 1 Cigarettes Per Day: 20 Years Smoked: >20 years e-Cigarette/Vaping Use: Never Used Second Hand Smoke Exposure: Yes Substance Use Type: Crack/Cocaine and Marijuana Advance Directives: No Advance Directives Information Provided: No service: No Sexual orientation: Straight/Heterosexual Physical Exam Vital Signs: Vital Signs: Last Vital Signs Temp 97.5 F 11/17/23 21:25 Pulse 101 H 11/17/23 21:25 Resp 16 11/17/23 21:25 BP 95/64 11/17/23 21:25 Pulse Ox 95 11/17/23 21:25 O2 Del Method Room Air 11/17/23 21:25 BMI result Body Mass Index 29.3 Appearance: Alert. Oriented X3. No acute distress. Eyes: Pupils equal, round and reactive to light. ENT: Pharynx normal. Neck: Normal inspection. Neck supple. CVS: Normal heart rate and rhythm. Pulses normal. Respiratory: No respiratory distress. Breath sounds normal. Abdomen: Soft and nontender. Skin: Skin warm and dry. Normal skin color. Normal skin turgor. Extremities: No lower extremity edema. No calf ttp Neuro: Oriented X 3. No motor deficit. No sensory deficit. CN2-12 intact Medical Decision Making Medical Decision Making MDM Narrative: 43 yo male with PMH of depression, ETOH abuse, GERD here with ingestion of paroxetine 40mg alone with 450mg ER wellbutrin and ETOH in SI attempt. At this time labs, EKG, poison control consult he is awake alert and calm no signs of serotonin syndrome Differential Diagnosis Differential Diagnoses: The differential diagnosis associated with the presentation includes depression, SI attempt Admission/Observation Consideration of admission/observation: Escalation of care including admission/observation considered observe until medically clear and care team involved discussed with poison control they want monitoring overnight for wellbutrin and given rise in LFTs from baseline with SI attempt and SI in past despite unknown tylenol ingestion recommend NAC protocol. will start now and admit Consult Healthcare Provider Management of the patient was discussed with: Hospitalist (will admit) and Retail Customer Service Specialist (poison control) Lab Data MDM Lab Attestation statement: I reviewed the patient's lab results. 11/17/23 21:53 11/17/23 21:53 Labs: Lab Results 11/17/23 Range/Units 21:53 WBC 7.6 (4.8-10.8) X10*3/uL RBC 4.32 L (4.60-5.80) X10*6/uL Hgb 13.5 L (14.0-18.0) g/dl Hct 40.4 L (42.0-52.0) % MCV 93.5 (80.0-98.0) fL MCH 31.3 (27.0-33.0) pg MCHC 33.4 (31.0-36.0) g/dl RDW 13.1 (11.0-16.0) % Plt Count 298 (160-400) X10*3/uL MPV 8.6 L (9.4-12.4) fL Immature Gran % (Auto) 0.8 H (0.0-0.4) % Neut % (Auto) 50.2 (45-73) % Lymph % (Auto) 34.2 (20-40) % [place] % (Auto) 11.4 H (2-11) % Eos % (Auto) 2.6 (0-4) % Baso % (Auto) 0.8 (0-2) % Lymph # (Auto) 2.6 (1.2-4.9) X10*3/uL [place] # (Auto) 0.9 (0.1-1.2) X10*3/uL Eos # (Auto) 0.2 (0.0-0.4) X10*3/uL Baso # (Auto) 0.1 (0.0-0.2) X10*3/uL Abs Immat Gran (auto) 0.06 H (0.00-0.03) X10*3/uL Absolute Neuts (auto) 3.8 (2.0-8.3) x10*3/uL Absolute Nucleated RBC 0.000 (0.0-0.012) X10*3/uL Nucleated RBC % (auto) 0.0 (0.0-0.2) /100WBC Sodium 146 H (135-145) mmol/L Potassium 3.5 D (3.3-5.1) mmol/L Chloride 109 H (96-108) mmol/L Carbon Dioxide 25 (22-29) mmol/L Anion Gap 16 (12-20) BUN 9 (9-16) mg/dL Creatinine 1.29 (0.5-1.4) mg/dL Estim Creat Clear Calc 86.0 Estimated GFR > 60 Random Glucose 87 (60-115) mg/dL Calcium 9.1 (8.4-10.2) mg/dL Total Bilirubin 0.3 (0.0-1.0) mg/dL AST 171 H (5-37) U/L ALT 136 H (0-40) U/L Alkaline Phosphatase 75 (39-117) U/L Total Protein 7.4 (6.5-8.0) g/dL Albumin 4.1 (3.5-5.0) g/dL Ethyl Alcohol 244 mg/dL Independent Interpretation I performed an independent interpretation of an: EKG Interpretation: Rate: 83 Rhythm: NSR [place]: left Normal P waves. Normal SUSANNAH. Normal QRS complex. ST T wave : normal no DORIS qTC: 427 prior studies: no acute ischemia The study has been interpreted contemporaneously by me. . Independent Historian Clinical information obtained from an independent historian. History obtained from or confirmed by: EMS External Record Review External record reviewed: Inpatient record Discharge Plan Discharge Clinical Impression: Suicidal ideation, Alcohol use disorder, Elevated LFTs, Suicide attempt Patient Disposition: Admitted As Inpatient Prescriptions: No Action bupropion HCl 150 mg Tablet Extended Release 24 Hr 150 mg PO DAILY 30 Days Qty: 30 0RF omeprazole 20 mg Capsule,Delayed Release(Dr/Ec) 20 mg PO BID@0630,1630 30 Days Qty: 60 0RF paroxetine HCl 20 mg Tablet 20 mg PO DAILY 30 Days Qty: 30 0RF Interventions: [place]-Suicide Risk Severity Scale Last Done: 11/17/23 21:29
[2023-11-17 21:57] LABS: MANUAL DIFF FLAG NO
[2023-11-17 22:13] LABS: Alanine Aminotransferase 136 U/L (0-40); Albumin Level 4.1 g/dL (3.5-5.0); Alkaline Phosphatase 75 U/L (39-117); Anion Gap 16 (12-20); Aspartate Amino Transferase 171 U/L (5-37); Bilirubin Total 0.3 mg/dL (0.0-1.0); Blood Urea Nitrogen 9 mg/dL (9-16); Calcium 9.1 mg/dL (8.4-10.2); Carbon Dioxide 25 mmol/L (22-29); Chloride 109 mmol/L (96-108); Estimated Glomerular Filt Rate > 60; Ethanol 244 mg/dL; Glucose Random 87 mg/dL (60-115); Potassium 3.5 mmol/L (3.3-5.1); Sodium 146 mmol/L (135-145); Total Protein 7.4 g/dL (6.5-8.0)
[2023-11-17 22:23] LABS: Basophils Absolute Auto 0.1 X10*3/uL (0.0-0.2); Basophils Percent Auto 0.8 % (0-2); Eosinophils Absolute Auto 0.2 X10*3/uL (0.0-0.4); Eosinophils Percent Auto 2.6 % (0-4); Hematocrit 40.4 % (42.0-52.0); Hemoglobin 13.5 g/dl (14.0-18.0); Imm Gran Abs Auto 0.06 X10*3/uL (0.00-0.03); Imm Gran Pct Auto 0.8 % (0.0-0.4); Lymphocytes Absolute Auto 2.6 X10*3/uL (1.2-4.9); Lymphocytes Percent Auto 34.2 % (20-40); Mean Corpuscular HGB Conc 33.4 g/dl (31.0-36.0); Mean Corpuscular Hemoglobin 31.3 pg (27.0-33.0); Mean Corpuscular Volume 93.5 fL (80.0-98.0); Mean Platelet Volume 8.6 fL (9.4-12.4); Monocytes Absolute Auto 0.9 X10*3/uL (0.1-1.2); Monocytes Percent Auto 11.4 % (2-11); Neutrophils Absolute Auto 3.8 x10*3/uL (2.0-8.3); Neutrophils Percent Auto 50.2 % (45-73); Platelet Count 298 X10*3/uL (160-400); Red Blood Count 4.32 X10*6/uL (4.60-5.80); Red Cell Distribution Width 13.1 % (11.0-16.0); White Blood Count 7.6 X10*3/uL (4.8-10.8)
--- NOTE | 2023-11-17 23:07 | PC.NURSE ---
Called poison control for consult. They suggested: optimize electrolytes K goal of 4 Mag goal of 2 Start nacetylsticine protocol 150mg/kg in 200mL D5 over 1 hour 50mg/kg in 500mL over 4 hours 100mg/kg in 1 liter D5 over 16 hours EKG [id number] if signs/symptoms of serotonin syndrome arise, treat with benzos likely a 24 hour observation. MD aware
[2023-11-18] VITALS (7 sets, daily range): BP systolic 133–164; BP diastolic 79–95; PULSE 68–94; RESP 12–20; TEMP 36.4–37.2; O2SAT 96–98
--- NOTE | 2023-11-18 | ECG_ITS ---
Test Reason : CHECK QTC Blood Pressure : / mmHG Vent. Rate : 077 BPM Atrial Rate : 077 BPM P-R Int : 140 ms QRS Dur : 086 ms QT Int : 366 ms P-R-T Axes : 038 002 031 degrees QTc Int : 414 ms Normal sinus rhythm with sinus arrhythmia Normal ECG When compared with ECG of 18-NOV-2023 00:41, No significant change was found Referred By: Camryn Johnson Electronically Signed By:ASHLY SALGADO MD
--- NOTE | 2023-11-18 00:07 | PM.IMHP ---
History of Present Illness Date of Service: 11/18/23 Chief Complaint: Overdose This is a 43-year-old male with pertinent history of suicidal ideation with intentional overdose, alcohol use disorder, major depressive disorder who presents to the emergency department after intentional overdose. Patient states that prior to presentation he intentionally took multiple tablets of Wellbutrin. Initially he stated that he took 450 mg of extended release Wellbutrin but states he thinks it was more than 600 mg. Patient states that he is depressed and he wanted to take his life. He also smoked marijuana and took his paroxetine. Patient's last alcoholic drink was 2 hours prior to presentation and he does feel tremulous, nauseous and sweaty. Does have a history of alcohol withdrawals before. No fever, chills, chest discomfort, palpitations, shortness of breath, abdominal pain, changes in urinary or bowel habits. In the emergency department, poison control was contacted who recommended admission for monitoring and initiating NAC protocol despite Tylenol level being low. Review of Systems Constitutional: Constitutional: Reports malaise Cardiovascular: Cardiovascular: Reports no additional cardiovascular complaints Respiratory: Respiratory: Reports no additional respiratory complaints Gastrointestinal: Gastrointestinal: Reports no additional gastrointestinal complaints Genitourinary: Genitourinary: Reports no additional male genitourinary complaints Psychiatric: Psychiatric: Reports depression and Reports suicidal ideation [facility] Medical History Alcohol use disorder Major depression Suicide attempt by multiple drug overdose Drug overdose Pertinent family history: No family history of early CAD Social History Household Members: None and Other Housing: Other Housing Other:: In Car Do you presently have visiting nurse or other home services: No Unable to assess alcohol history related to: Unable to respond Alcohol intake: current Alcohol intake frequency: 3 or more drinks per day Comment: 1:1 sitter Patient Tobacco Use Status: Current everyday Tobacco user Tobacco use type: Cigarette Cigarette Packs Per Day: 1 Cigarettes Per Day: 20 Years Smoked: >20 years Smoked in Last 30 Days: Yes e-Cigarette/Vaping Use: Never Used Second Hand Smoke Exposure: Yes Use of substances other than those prescribed or required for medical reasons: Yes Substance Use Type: Marijuana Substance Use Frequency: Occasionally Advance Directives: No Advance Directives Information Provided: No service: No Sexual orientation: Straight/Heterosexual Meds Allergies Allergy/AdvReac Type Severity Reaction Status Date / Time No Known Allergies Allergy Verified 09/07/23 20:44 Active Medications: Current Medications Acetylcysteine 14,280 mg/ (Dextrose) 271.4 mls @ 200 mls/hr IV ONCE ONE Stop: 11/18/23 01:09 Physical Exam Vital Signs and Narrative: Vital Signs: Last Vital Signs Temp 97.5 F 11/17/23 21:25 Pulse 101 H 11/17/23 21:25 Resp 16 11/17/23 21:25 BP 95/64 11/17/23 21:25 Pulse Ox 95 11/17/23 21:25 O2 Del Method Room Air 11/17/23 21:25 BMI result Body Mass Index 29.3 Middle-aged male lying in bed in no distress Neck supple, no JVD Regular rate and rhythm, S1-S2 heard Regular breath sounds bilaterally, no wheezing or crackles appreciated Abdomen soft nontender, no guarding, no rigidity Patient is awake, alert and oriented to self, place, time and person ; no focal motor deficit Psych: Normal mood No pedal edema Results Labs 11/17/23 21:53 11/17/23 21:53 Labs: Laboratory Results - last 24 hr 11/17/23 21:53 MCV 93.5 MCH 31.3 MCHC 33.4 RDW 13.1 Plt Count 298 MPV 8.6 L Immature Gran % (Auto) 0.8 H Neut % (Auto) 50.2 Lymph % (Auto) 34.2 [place] % (Auto) 11.4 H Eos % (Auto) 2.6 Baso % (Auto) 0.8 Lymph # (Auto) 2.6 [place] # (Auto) 0.9 Eos # (Auto) 0.2 Baso # (Auto) 0.1 Abs Immat Gran (auto) 0.06 H Absolute Neuts (auto) 3.8 Absolute Nucleated RBC 0.000 Nucleated RBC % (auto) 0.0 Anion Gap 16 Estim Creat Clear Calc 86.0 Estimated GFR > 60 Random Glucose 87 Calcium 9.1 Total Bilirubin 0.3 AST 171 H ALT 136 H Alkaline Phosphatase 75 Total Protein 7.4 Albumin 4.1 Ethyl Alcohol 244 Assessment and Plan (1) Suicide attempt: Status: Acute (2) Intentional overdose: Status: Acute Plan This is a 43-year-old male with pertinent history of suicidal ideation with intentional overdose, alcohol use disorder, major depressive disorder who presents to the emergency department after intentional overdose. #. Intentional overdose with suicidal intent: Will admit patient with NAC protocol as per poison control (despite Tylenol levels being low). Closely monitor rhythm and repeat EKG in a.m. for QTC. Seizure precautions. Repeat electrolytes and liver function. Resuscitating with IV crystalloids. Consulting psych and sitter. #. Elevated liver enzymes: In the setting of above versus alcohol use (more likely) #. Alcohol use disorder: Initiated on phenobarb protocol. Monitor CIWA. Initiating thiamine #. Gastroesophageal reflux disease: On PPI Med rec pending DVT prophylaxis: Lovenox Full code Admit as inpatient and will require two night minimum hospital stay for close hemodynamic monitoring, administration of IV NAC, management of alcohol withdrawal, safe disposition (as above), which is not possible in a lesser acute setting. Quality Stroke Does the patient have a stroke diagnosis?: No VTE Prior VTE?: No VTE Risk Level:: Medical - moderate - high VTE Device Contraindication: Treatment Not Indicated VTE Drug Contraindication: N/A - Med Ordered
[2023-11-18 00:30] LABS: Magnesium 2.1 mg/dL (1.6-2.6)
[2023-11-18 00:36] LABS: Acetaminophen LAB < 3 mcg/mL (<30); Salicylate < 5.0 mg/dL (15-30)
[2023-11-18] MEDS: Enoxaparin Sodium 40 MG/0.4 ML SYRINGE SUBCUT ×2 (01:03→23:55)
[2023-11-18] MEDS: Thiamine HCL 200 MG in 0.9 % Sodium Chloride 100 ML 204 MG IV (02:17)
[2023-11-18] MEDS: 0.9 % Sodium Chloride 500 ML 999 ML IV (02:17)
[2023-11-18] MEDS: PHENobarbitaL sodium 130 MG/ML IM ONCE 299 MG IM (02:19)
--- NOTE | 2023-11-18 02:27 | PC.NURSE ---
Spoke with poison control to give updates. No further advice at this time. Repeat labs to be drawn at 0500.
[2023-11-18] MEDS: Calcium Carbonate 750 MG TAB.CHEW PO ×3 (03:24→23:51)
[2023-11-18] MEDS: PHENobarbitaL sodium 130 MG/ML VIAL IM Q3Hx2 221 MG IM ×2 (05:19→08:21)
[2023-11-18 06:08] LABS: MANUAL DIFF FLAG NO
[2023-11-18 06:12] LABS: Basophils Percent Auto 0.5 % (0-2); Eosinophils Absolute Auto 0.1 X10*3/uL (0.0-0.4); Eosinophils Percent Auto 1.8 % (0-4); Hematocrit 38.7 % (42.0-52.0); Imm Gran Abs Auto 0.08 X10*3/uL (0.00-0.03); Lymphocytes Absolute Auto 2.1 X10*3/uL (1.2-4.9); Lymphocytes Percent Auto 26.2 % (20-40); Mean Corpuscular HGB Conc 33.6 g/dl (31.0-36.0); Mean Corpuscular Hemoglobin 31.9 pg (27.0-33.0); Mean Corpuscular Volume 95.1 fL (80.0-98.0); Mean Platelet Volume 8.7 fL (9.4-12.4); Monocytes Absolute Auto 0.9 X10*3/uL (0.1-1.2); Monocytes Percent Auto 11.1 % (2-11); Neutrophils Absolute Auto 4.7 x10*3/uL (2.0-8.3); Neutrophils Percent Auto 59.4 % (45-73); Platelet Count 266 X10*3/uL (160-400); Red Blood Count 4.07 X10*6/uL (4.60-5.80); Red Cell Distribution Width 13.3 % (11.0-16.0); White Blood Count 7.9 X10*3/uL (4.8-10.8)
[2023-11-18 06:29] LABS: Alanine Aminotransferase 128 U/L (0-40); Albumin Level 3.6 g/dL (3.5-5.0); Alkaline Phosphatase 62 U/L (39-117); Anion Gap 18 (12-20); Aspartate Amino Transferase 134 U/L (5-37); Bilirubin Total 0.4 mg/dL (0.0-1.0); Blood Urea Nitrogen 9 mg/dL (9-16); Calcium 8.1 mg/dL (8.4-10.2); Carbon Dioxide 20 mmol/L (22-29); Chloride 106 mmol/L (96-108); Creatinine Clr Calc Pharmacy 126.1; Estimated Glomerular Filt Rate > 60; Glucose Random 108 mg/dL (60-115); Potassium 3.5 mmol/L (3.3-5.1); Sodium 140 mmol/L (135-145); Total Protein 6.5 g/dL (6.5-8.0)
--- NOTE | 2023-11-18 07:40 | PC.NURSE ---
This RN assumed care, pt is alert and oriented, breathing even and unlabored, skin slightly clammy. Pt reports headache, nausea, dizziness, and overall not feeling well. Pt does endorse SI, reports he took 30+ nips, marijuana and welbutrin and paroxetine pills last night as an attempt. Pt is calm and cooperative at this time. Denies any SOB and CP.
[2023-11-18] MEDS: 0.9 % Sodium Chloride Flush 3 ML SYRINGE IVFLUSH (08:19)
[2023-11-18] MEDS: Thiamine HCL 100 MG TABLET PO (08:19)
--- NOTE | 2023-11-18 08:54 | ECG_ITS ---
Test Reason : OVERDOSE Blood Pressure : / mmHG Vent. Rate : 083 BPM Atrial Rate : 083 BPM P-R Int : 146 ms QRS Dur : 088 ms QT Int : 374 ms P-R-T Axes : 057 -01 032 degrees QTc Int : 439 ms Normal sinus rhythm with sinus arrhythmia Normal ECG When compared with ECG of 17-NOV-2023 22:34, No significant change was found Referred By: Zoe Mckenzie Electronically Signed By:ASHLY SALGADO MD
--- NOTE | 2023-11-18 09:26 | PHA.MEDREC ---
Pharmacy Consult ? Medication Reconciliation Pharmacy has completed the medication reconciliation. Confirmed medication with patient and with a phone call to [facility] ([facility]) [facility] does not show a pantoprazole being filled but does show Trazadone 50mg being filled. He made no mention of trazadone so I left it off but he did say he uses pantoprazole so i put it on.
[2023-11-18 09:46] LABS: Appearance Urine Clear; Color Urine Yellow; Glucose Urine UA Negative (Negative); Leukocyte Esterase Urine Negative (Negative); Nitrite Urine Negative (Negative); PH 7.5 (5.0-9.0); Urine Blood Negative (Negative); Urine Ketones Trace mg/dL (Negative); Urine Protein Trace mg/dL (Neg-Trace)
[2023-11-18 09:47] LABS: Amphetamine Screen Urine Not Detected (Not Detect); Barbiturates, Urine POSITIVE (Not Detect); Benzodiazepines Screen Urine Not Detected (Not Detect); Cannabinoid Screen Urine POSITIVE (Not Detect); Cocaine Screen Urine POSITIVE (Not Detect); Fentanyl, urine Not Detected (Not Detect); Opiate Screen Urine Not Detected (Not Detect); Phencyclidine Screen Urine Not Detected (Not Detect)
[2023-11-18] MEDS: Ibuprofen 400 MG TABLET PO ×2 (09:52→19:35)
--- NOTE | 2023-11-18 11:20 | PM.EVENT ---
Event Note Date of Service: 11/18/23 Event Note: seen and examined this morning follow up for drug overdose/SI patient reporting chest pain - states this is chronic since sternal fracture in January, worse with deep breathing, but unchanged from baseline This is a 43-year-old male with pertinent history of suicidal ideation with intentional overdose, alcohol use disorder, major depressive disorder who presents to the emergency department after intentional overdose. Intentional overdose with suicidal intent: NAC protocol as per poison control (despite Tylenol levels being low) repeat EKG 11/17 with qtc 414 Seizure precautions electrolytes and liver function psych consult pending continue sitter for safety likely care team eval when medically cleared update from poison control: repeat LFTs and INR at 10:30pm and replace K with goal of 4.0 Elevated liver enzymes: In the setting of above versus alcohol use (more likely) trended down somewhat follow LFTs Alcohol use disorder with concern for withdrawal continue phenobarb protocol follow CIWA continue thiamine supplementation Addition medicine consultation pending polysubstance abuse tox screen + for cocaine, marijuana addiction medicine consult as above Gastroesophageal reflux disease: Continue PPI dvt PPX - lovenox Time Spent With Patient Time: Total time managing care of this patient today ____ minutes.
--- NOTE | 2023-11-18 11:25 | PC.NURSE ---
Poison control called and updated, recommend obtaining LFTs and INR at 1030p and Supplement Potassium so level is 4, Camryn Johnson notified.
[2023-11-18] MEDS: Potassium Chloride Packet 20 MEQ PACKET 40 MEQ PO (11:43)
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
[2023-11-18] MEDS: Ketorolac Tromethamine 15 MG/ML VIAL IVPUSH ×2 (14:55→23:53)
[2023-11-18] MEDS: PHENobarbitaL 30 MG TABLET 60 MG PO (17:27)
--- NOTE | 2023-11-18 20:21 | MHC.CLN ---
This writter documented for EKG completed at 8:54
[2023-11-18 22:40] LABS: Prothrombin Time 11.8 SEC (11.1-13.3)
[2023-11-18 22:44] LABS: Alanine Aminotransferase 96 U/L (0-40); Albumin Level 3.5 g/dL (3.5-5.0); Alkaline Phosphatase 62 U/L (39-117); Aspartate Amino Transferase 70 U/L (5-37); Bilirubin Direct 0.1 mg/dL (0.0-0.5); Bilirubin Total 0.4 mg/dL (0.0-1.0); Total Protein 6.1 g/dL (6.5-8.0)
[2023-11-18] MEDS: ondansetron HCL 4 MG/2 ML VIAL IVPUSH (23:52)
[2023-11-19 03:16] VITALS: BP 146/89; PULSE 63; RESP 20; TEMP 36.4; O2SAT 94
[2023-11-19] MEDS: Melatonin 3 MG TABLET 6 MG PO ×2 (03:25→21:10)
[2023-11-19] MEDS: Calcium Carbonate 750 MG TAB.CHEW PO (03:25)
[2023-11-19 06:32] LABS: Alanine Aminotransferase 93 U/L (0-40); Albumin Level 3.4 g/dL (3.5-5.0); Alkaline Phosphatase 61 U/L (39-117); Anion Gap 12 (12-20); Aspartate Amino Transferase 64 U/L (5-37); Bilirubin Direct 0.1 mg/dL (0.0-0.5); Bilirubin Total 0.4 mg/dL (0.0-1.0); Blood Urea Nitrogen 9 mg/dL (9-16); Calcium 9.4 mg/dL (8.4-10.2); Carbon Dioxide 27 mmol/L (22-29); Chloride 105 mmol/L (96-108); Creatinine Clr Calc Pharmacy 115.6; Estimated Glomerular Filt Rate > 60; Glucose Random 100 mg/dL (60-115); Magnesium 1.9 mg/dL (1.6-2.6); Potassium 3.8 mmol/L (3.3-5.1); Sodium 140 mmol/L (135-145)
[2023-11-19 07:05] VITALS: BP 140/87; PULSE 65; RESP 18; TEMP 36.1; O2SAT 96
[2023-11-19] MEDS: PHENobarbitaL 30 MG TABLET 60 MG PO ×2 (08:18→21:08)
[2023-11-19] MEDS: Omeprazole 20 MG CAPSULE.DR PO (08:18)
[2023-11-19] MEDS: Thiamine HCL 100 MG TABLET PO (08:18)
[2023-11-19] MEDS: 0.9 % Sodium Chloride Flush 3 ML SYRINGE IVFLUSH (08:19)
--- NOTE | 2023-11-19 09:33 | HO.PM.IMPN ---
Subjective Subjective Date of Service: 11/19/23 Interval History: Seen in follow up for depression, intentional OD, ETOH No signs of withdrawal no nausea or vomiting Physical Exam Vital Signs: Vital Signs: Last Vital Signs Temp 97.0 F 11/19/23 07:05 Pulse 65 11/19/23 07:05 Resp 18 11/19/23 07:05 BP 140/87 H 11/19/23 07:05 Pulse Ox 96 11/19/23 07:05 O2 Del Method Room Air 11/19/23 07:05 BMI result Body Mass Index 29.3 Appearing in no acute distress lung sounds are clear to auscultation heart regular rate rhythm, clear S1, S2 positive bowel sounds, abdomen is soft, nontender neuro patient is alert x3, no focal deficits Objective Data Active Medications Calcium Carbonate (Calcium Carbonate 750 Mg Tab.Chew) 750 mg PO Q4H PRN PRN Reason: Heartburn Last Admin: 11/19/23 03:25 Dose: 750 mg Documented By: RAQUEL Enoxaparin Sodium (Enoxaparin Sodium 40 Mg/0.4 Ml Syringe) 40 mg SUBCUT BEDTIME [facility] Last Admin: 11/18/23 23:55 Dose: 40 mg Documented By: RAQUEL Ibuprofen (Ibuprofen 400 Mg Tablet) 400 mg PO Q6H PRN PRN Reason: Pain, Mild (Pain Scale 1-3) Last Admin: 11/18/23 19:35 Dose: 400 mg Documented By: NELLIE Melatonin (Melatonin 3 Mg Tablet) 6 mg PO BEDTIME PRN PRN Reason: Insomnia Last Admin: 11/19/23 03:25 Dose: 6 mg Documented By: RAQUEL Omeprazole (Omeprazole 20 Mg Capsule.Dr) 20 mg PO DAILY [facility] Last Admin: 11/19/23 08:18 Dose: 20 mg Documented By: FAYE Ondansetron HCl (Ondansetron Hcl 4 Mg/2 Ml Vial) 4 mg IVPUSH Q8H PRN PRN Reason: Nausea and Vomiting Last Admin: 11/18/23 23:52 Dose: 4 mg Documented By: RAQUEL Pharmacy Consult (Consult Rx Etoh Phenob Im/Po) 1 each MISCELLANE ONCE PRN; Protocol PRN Reason: Consult order Phenobarbital (Phenobarbital 30 Mg Tablet) 60 mg PO BID [facility]; Protocol Stop: 11/20/23 09:01 Last Admin: 11/19/23 08:18 Dose: 60 mg Documented By: FAYE Phenobarbital (Phenobarbital 30 Mg Tablet) 30 mg PO BID [facility]; Protocol Stop: 11/22/23 09:01 Phenobarbital (Phenobarbital 30 Mg Tablet) 30 mg PO DAILY [facility]; Protocol Stop: 11/24/23 09:01 Sodium Chloride (0.9 % Sodium Chloride Flush 3 Ml Syringe) 3 ml IVFLUSH QSHIFT [facility] Last Admin: 11/19/23 08:19 Dose: 3 ml Documented By: FAYE Thiamine HCl (Thiamine Hcl 100 Mg Tablet) 100 mg PO DAILY [facility] Last Admin: 11/19/23 08:18 Dose: 100 mg Documented By: FAYE Labs 11/18/23 05:49 11/19/23 05:44 Labs: Laboratory Results - last 24 hr 11/18/23 11/18/23 11/19/23 09:33 22:22 05:44 Hold Purple Top SEE NOTE PT 11.8 INR 1.0 Anion Gap 12 Estim Creat Clear Calc 115.6 Estimated GFR > 60 Random Glucose 100 Calcium 9.4 D Magnesium 1.9 Total Bilirubin 0.4 0.4 Direct Bilirubin 0.1 0.1 AST 70 H 64 H ALT 96 H 93 H Alkaline Phosphatase 62 61 Total Protein 6.1 L 6.0 L Albumin 3.5 3.4 L Urine Color Yellow Urine Appearance Clear Urine pH 7.5 Ur Specific [place] 1.020 Urine Protein Trace Urine Glucose (UA) Negative Urine Ketones Trace Urine Blood Negative Urine Nitrite Negative Ur Leukocyte Esterase Negative Urine Opiates Screen Not Detected Urine Fentanyl Screen Not Detected Ur Barbiturates Screen POSITIVE H Ur Phencyclidine Scrn Not Detected Ur Amphetamines Screen Not Detected U Benzodiazepines Scrn Not Detected Urine Cocaine Screen POSITIVE H U Marijuana (THC) Screen POSITIVE H Assessment and Plan (1) Intentional overdose: Status: Acute Plan 43-year-old male with pertinent history of suicidal ideation with intentional overdose, alcohol use disorder, major depressive disorder who presents to the emergency department after intentional overdose. Intentional overdose with suicidal intent NAC protocol as per poison control (despite Tylenol levels being low) repeat EKG 11/17 with qtc 414 Seizure precautions psych consult>care team consult when medically clear continue sitter for safety Elevated liver enzymes In the setting of above versus alcohol use (more likely) trended down somewhat follow LFTs Alcohol use disorder with concern for withdrawal continue phenobarb protocol follow CIWA continue thiamine supplementation Addition medicine consultation pending polysubstance abuse tox screen + for cocaine, marijuana addiction medicine consult as above Gastroesophageal reflux disease: Continue PPI Smoker nicotine patch dvt PPX - lovenox Attending Dr. Jacobs Full code continue hospital stay for close monitoring of Overdose requiring lab work as per poison control. Patient will also need care team consultation for possible admission for psychiatric care Quality Stroke Does the patient have a stroke diagnosis?: No VTE Prior VTE?: No VTE Risk Level:: Medical - moderate - high VTE Device Contraindication: Treatment Not Indicated VTE Drug Contraindication: N/A - Med Ordered
[2023-11-19 10:47] LABS: INTERNATIONAL NORM RATIO 0.9 (0.9-1.1); Prothrombin Time 10.8 SEC (11.1-13.3)
[2023-11-19 10:49] LABS: Alanine Aminotransferase 96 U/L (0-40); Albumin Level 3.4 g/dL (3.5-5.0); Alkaline Phosphatase 65 U/L (39-117); Aspartate Amino Transferase 73 U/L (5-37); Bilirubin Direct 0.2 mg/dL (0.0-0.5); Bilirubin Total 0.5 mg/dL (0.0-1.0); Total Protein 6.1 g/dL (6.5-8.0)
[2023-11-19] MEDS: Ibuprofen 400 MG TABLET PO ×2 (10:54→21:09)
[2023-11-19] MEDS: Nicotine 14 MG PATCH.TD24 TRANSDERMA (10:55)
[2023-11-19 11:23] VITALS: BP 141/83; PULSE 70; RESP 18; TEMP 36.2; O2SAT 97
--- NOTE | 2023-11-19 11:48 | MHC.CM.PN ---
Addendum entered by Miya Hernandez RN 11/19/23 11:57: CM FOUND CONTACT # FOR PT'S MOTHER UZMA NOBLES [phone], WILL VERIFY W/PT. Addendum entered by Miya Hernandez RN 11/19/23 11:56: PT LIVING IN CAR AND REPORTS HE PLANS ON MOVING BACK TO [facility] Original Note: EMR REVIEWED, PT ADMITTED S/P INTENTIONAL OD, CM MET W/PT WHO REPORTS HE WANTS IPLOC, PT REPORT HE IS HOMELESS, IS INDEP W/ALL CARE, DENIES USE OF DME/SERVICES INCLUDING NO CURRENT OUTPT MENTAL HEALTH OR ETOH TX/SERVICES, PT WILL NEED CARE TEAM ONCE MEDICALLY CLEARED. PT VERIFIES RECEIVING COVID VACC X5, HAS A PCP AT REPLACED BY [facility] AND WOULD LIKE TO COMPLETE A HCP HOWEVER DOES NOT HAVE THE CONTACT NUMBER, CM WILL ATTEMPT TO LOCATE NUMBER FOR PT.
[2023-11-19 15:46] VITALS: BP 124/73; PULSE 61; RESP 18; TEMP 36.6; O2SAT 98
[2023-11-19 19:05] VITALS: BP 135/85; PULSE 78; RESP 18; TEMP 36.7; O2SAT 99
[2023-11-19] MEDS: Enoxaparin Sodium 40 MG/0.4 ML SYRINGE SUBCUT (21:09)
[2023-11-20] VITALS (7 sets, daily range): BP systolic 118–135; BP diastolic 63–78; PULSE 63–81; RESP 16–20; TEMP 36.1–37; O2SAT 96–97
[2023-11-20] MEDS: 0.9 % Sodium Chloride Flush 3 ML SYRINGE IVFLUSH
[2023-11-20 07:16] LABS: Alanine Aminotransferase 89 U/L (0-40); Albumin Level 3.3 g/dL (3.5-5.0); Alkaline Phosphatase 65 U/L (39-117); Anion Gap 12 (12-20); Aspartate Amino Transferase 62 U/L (5-37); Bilirubin Direct < 0.1 mg/dL (0.0-0.5); Bilirubin Total 0.3 mg/dL (0.0-1.0); Blood Urea Nitrogen 11 mg/dL (9-16); Calcium 8.4 mg/dL (8.4-10.2); Carbon Dioxide 27 mmol/L (22-29); Chloride 105 mmol/L (96-108); Creatinine Clr Calc Pharmacy 130.6; Estimated Glomerular Filt Rate > 60; Glucose Random 94 mg/dL (60-115); Potassium 3.7 mmol/L (3.3-5.1); Sodium 140 mmol/L (135-145); Total Protein 5.8 g/dL (6.5-8.0)
--- NOTE | 2023-11-20 08:59 | MHC.RECOVRN ---
Addiction Medicine consult received for alcohol use. Pt had presented for intentional overdose. Consult deferred due to concerns/needing CARE Team assessment.
[2023-11-20] MEDS: Nicotine 14 MG PATCH.TD24 TRANSDERMA (09:32)
[2023-11-20] MEDS: PHENobarbitaL 30 MG TABLET 60 MG PO (09:32)
[2023-11-20] MEDS: Omeprazole 20 MG CAPSULE.DR PO (09:32)
[2023-11-20] MEDS: Thiamine HCL 100 MG TABLET PO (09:32)
[2023-11-20] MEDS: Ibuprofen 400 MG TABLET PO ×2 (09:35→21:48)
--- NOTE | 2023-11-20 10:31 | P.PNIM_ITS ---
Subjective Subjective Date of Service: 11/20/23 Interval History: Seen in follow up for depression, intentional OD, ETOH No signs of withdrawal no nausea or vomiting Physical Exam 2 Vital Signs: Vital Signs: Last Vital Signs Temp 97.9 F 11/20/23 07:33 Pulse 71 11/20/23 07:33 Resp 20 11/20/23 07:33 BP 118/69 11/20/23 07:33 Pulse Ox 96 11/20/23 07:33 O2 Del Method Room Air 11/20/23 07:33 BMI result Body Mass Index 29.3 Appearing in no acute distress lung sounds are clear to auscultation heart regular rate rhythm, clear S1, S2 positive bowel sounds, abdomen is soft, nontender neuro patient is alert x3, no focal deficits Objective Data Active Medications Calcium Carbonate (Calcium Carbonate 750 Mg Tab.Chew) 750 mg PO Q4H PRN PRN Reason: Heartburn Last Admin: 11/19/23 03:25 Dose: 750 mg Documented By: RAQUEL Enoxaparin Sodium (Enoxaparin Sodium 40 Mg/0.4 Ml Syringe) 40 mg SUBCUT BEDTIME [facility] Last Admin: 11/19/23 21:09 Dose: 40 mg Documented By: MING Melatonin (Melatonin 3 Mg Tablet) 6 mg PO BEDTIME PRN PRN Reason: Insomnia Last Admin: 11/19/23 21:10 Dose: 6 mg Documented By: MING Nicotine (Nicotine 14 Mg Patch.Td24) 14 mg TRANSDERMA DAILY [facility] Last Admin: 11/20/23 09:32 Dose: 14 mg Documented By: BROManny Omeprazole (Omeprazole 20 Mg Capsule.) 20 mg PO DAILY [facility] Last Admin: 11/20/23 09:32 Dose: 20 mg Documented By: LIGIA Ondansetron HCl (Ondansetron Hcl 4 Mg/2 Ml Vial) 4 mg IVPUSH Q8H PRN PRN Reason: Nausea and Vomiting Last Admin: 11/18/23 23:52 Dose: 4 mg Documented By: RAQUEL Pharmacy Consult (Consult Rx Etoh Phenob Im/Po) 1 each MISCELLANE ONCE PRN; Protocol PRN Reason: Consult order Phenobarbital (Phenobarbital 30 Mg Tablet) 30 mg PO BID [facility]; Protocol Stop: 11/22/23 09:01 Phenobarbital (Phenobarbital 30 Mg Tablet) 30 mg PO DAILY [facility]; Protocol Stop: 11/24/23 09:01 Sodium Chloride (0.9 % Sodium Chloride Flush 3 Ml Syringe) 3 ml IVFLUSH QSHIFT [facility] Last Admin: 11/20/23 00:00 Dose: 3 ml Documented By: MING Thiamine HCl (Thiamine Hcl 100 Mg Tablet) 100 mg PO DAILY [facility] Last Admin: 11/20/23 09:32 Dose: 100 mg Documented By: LIGIA Labs 11/18/23 05:49 11/20/23 06:22 Labs: Laboratory Results - last 24 hr 11/19/23 11/20/23 09:57 06:22 Hold Purple Top SEE NOTE PT 10.8 L INR 0.9 Anion Gap 12 Estim Creat Clear Calc 130.6 Estimated GFR > 60 Random Glucose 94 Calcium 8.4 D Total Bilirubin 0.5 0.3 Direct Bilirubin 0.2 < 0.1 AST 73 H 62 H ALT 96 H 89 H Alkaline Phosphatase 65 65 Total Protein 6.1 L 5.8 L Albumin 3.4 L 3.3 L Assessment and Plan (1) Intentional overdose: Status: Acute Plan 43-year-old male with pertinent history of suicidal ideation with intentional overdose, alcohol use disorder, major depressive disorder who presents to the emergency department after intentional overdose. Intentional overdose with suicidal intent NAC protocol as per poison control (despite Tylenol levels being low) repeat EKG 11/17 with qtc 414 Seizure precautions psych consult>care team consult when medically clear continue sitter for safety Elevated liver enzymes In the setting of above versus alcohol use (more likely) trended down follow LFTs Alcohol use disorder with concern for withdrawal continue phenobarb protocol follow CIWA continue thiamine supplementation Addition medicine consultation pending still with tremors today polysubstance abuse tox screen + for cocaine, marijuana addiction medicine consult as above Gastroesophageal reflux disease: Continue PPI Smoker nicotine patch dvt PPX - lovenox Attending Dr. aJcobs Full code continue hospital stay for close monitoring of Overdose requiring lab work as per poison control. Patient will also need care team consultation for possible admission for psychiatric care Quality Stroke Does the patient have a stroke diagnosis?: No VTE Prior VTE?: No VTE Risk Level:: Medical - moderate - high VTE Device Contraindication: Treatment Not Indicated VTE Drug Contraindication: N/A - Med Ordered
[2023-11-20] MEDS: PARoxetine HCL 20 MG TABLET PO (14:32)
[2023-11-20] MEDS: Enoxaparin Sodium 40 MG/0.4 ML SYRINGE SUBCUT (21:48)
[2023-11-20] MEDS: PHENobarbitaL 30 MG TABLET PO (21:49)
[2023-11-21] MEDS: Melatonin 3 MG TABLET 6 MG PO (00:30)
[2023-11-21] MEDS: 0.9 % Sodium Chloride Flush 3 ML SYRINGE IVFLUSH ×3 (00:31→16:29)
[2023-11-21 04:00] VITALS: BP 123/79; PULSE 69; RESP 18; TEMP 37; O2SAT 98
[2023-11-21 07:26] VITALS: BP 129/75; PULSE 78; RESP 18; TEMP 36.4; O2SAT 98
[2023-11-21] MEDS: PARoxetine HCL 20 MG TABLET PO (08:09)
[2023-11-21] MEDS: PHENobarbitaL 30 MG TABLET PO (08:09)
[2023-11-21] MEDS: Nicotine 14 MG PATCH.TD24 TRANSDERMA (08:10)
[2023-11-21] MEDS: Thiamine HCL 100 MG TABLET PO (08:10)
[2023-11-21] MEDS: Omeprazole 20 MG CAPSULE.DR PO (08:10)
[2023-11-21] MEDS: Fluticasone Propionate Nasal 16 GM SPRAY 2 SPRAY NOSTRIL-B (08:11)
[2023-11-21] MEDS: Ibuprofen 400 MG TABLET PO (10:46)
[2023-11-21 11:08] VITALS: BP 142/80; PULSE 80; RESP 20; TEMP 36.4; O2SAT 98
--- NOTE | 2023-11-21 13:20 | HO.PM.IMPN ---
Subjective Subjective Date of Service: 11/21/23 Interval History: Seen in follow up for depression, intentional OD, ETOH No signs of withdrawal no nausea or vomiting Physical Exam Vital Signs: Vital Signs: Last Vital Signs Temp 97.5 F 11/21/23 11:08 Pulse 80 11/21/23 11:08 Resp 20 11/21/23 11:08 BP 142/80 H 11/21/23 11:08 Pulse Ox 98 11/21/23 11:08 O2 Del Method Room Air 11/21/23 11:08 BMI result Body Mass Index 29.3 Appearing in no acute distress lung sounds are clear to auscultation heart regular rate rhythm, clear S1, S2 positive bowel sounds, abdomen is soft, nontender neuro patient is alert x3, no focal deficits Objective Data Active Medications Calcium Carbonate (Calcium Carbonate 750 Mg Tab.Chew) 750 mg PO Q4H PRN PRN Reason: Heartburn Last Admin: 11/19/23 03:25 Dose: 750 mg Documented By: RAQUEL Enoxaparin Sodium (Enoxaparin Sodium 40 Mg/0.4 Ml Syringe) 40 mg SUBCUT BEDTIME [facility] Last Admin: 11/20/23 21:48 Dose: 40 mg Documented By: JOHN Fluticasone Propionate (Fluticasone Propionate Nasal 16 [address] [place]) 2 spray NOSTRIL-B DAILY [facility] Last Admin: 11/21/23 08:11 Dose: 2 spray Documented By: FAYE Ibuprofen (Ibuprofen 400 Mg Tablet) 400 mg PO TIDWM PRN PRN Reason: Pain, Moderate(Pain Scale 4-6) Last Admin: 11/21/23 10:46 Dose: 400 mg Documented By: FAYE Melatonin (Melatonin 3 Mg Tablet) 6 mg PO BEDTIME PRN PRN Reason: Insomnia Last Admin: 11/21/23 00:30 Dose: 6 mg Documented By: SHERIF-RIVLA Nicotine (Nicotine 14 Mg Patch.Td24) 14 mg TRANSDERMA DAILY [facility] Last Admin: 11/21/23 08:10 Dose: 14 mg Documented By: FAYE Omeprazole (Omeprazole 20 Mg Capsule.Dr) 20 mg PO DAILY [facility] Last Admin: 11/21/23 08:10 Dose: 20 mg Documented By: FAYE Ondansetron HCl (Ondansetron Hcl 4 Mg/2 Ml Vial) 4 mg IVPUSH Q8H PRN PRN Reason: Nausea and Vomiting Last Admin: 11/18/23 23:52 Dose: 4 mg Documented By: RAQUEL Paroxetine HCl (Paroxetine Hcl 20 Mg Tablet) 20 mg PO DAILY [facility] Last Admin: 11/21/23 08:09 Dose: 20 mg Documented By: FAYE Pharmacy Consult (Consult Rx Etoh Phenob Im/Po) 1 each MISCELLANE ONCE PRN; Protocol PRN Reason: Consult order Phenobarbital (Phenobarbital 30 Mg Tablet) 30 mg PO BID [facility]; Protocol Stop: 11/22/23 09:01 Last Admin: 11/21/23 08:09 Dose: 30 mg Documented By: FAYE Phenobarbital (Phenobarbital 30 Mg Tablet) 30 mg PO DAILY [facility]; Protocol Stop: 11/24/23 09:01 Sodium Chloride (0.9 % Sodium Chloride Flush 3 Ml Syringe) 3 ml IVFLUSH QSHIFT [facility] Last Admin: 11/21/23 08:12 Dose: 3 ml Documented By: FAYE Thiamine HCl (Thiamine Hcl 100 Mg Tablet) 100 mg PO DAILY [facility] Last Admin: 11/21/23 08:10 Dose: 100 mg Documented By: FAYE Labs 11/18/23 05:49 11/20/23 06:22 Assessment and Plan (1) Intentional overdose: Status: Acute Plan 43-year-old male with pertinent history of suicidal ideation with intentional overdose, alcohol use disorder, major depressive disorder who presents to the emergency department after intentional overdose. Intentional overdose with suicidal intent NAC protocol as per poison control (despite Tylenol levels being low) repeat EKG 11/17 with qtc 414 Seizure precautions continue sitter for safety Discussed with psych provider> may continue paroxetine at 20 mg, continue to hold bupropion Care team consult> bed search Elevated liver enzymes In the setting of above versus alcohol use (more likely) trended down follow LFTs Alcohol use disorder with concern for withdrawal continue phenobarb protocol follow CIWA continue thiamine supplementation Addition medicine consultation pending still with tremors today polysubstance abuse tox screen + for cocaine, marijuana addiction medicine consult as above Gastroesophageal reflux disease: Continue PPI Smoker nicotine patch dvt PPX - lovenox Attending Dr. Agustin Full code continue hospital stay for close monitoring of Overdose requiring lab work as per poison control. Patient will also need care team consultation for possible admission for psychiatric care Quality Stroke Does the patient have a stroke diagnosis?: No VTE Prior VTE?: No VTE Risk Level:: Medical - moderate - high VTE Device Contraindication: Treatment Not Indicated VTE Drug Contraindication: N/A - Med Ordered
[2023-11-21 15:28] VITALS: BP 139/81; PULSE 80; RESP 18; TEMP 36.4; O2SAT 97
--- NOTE | 2023-11-21 15:48 | PM.DS ---
DS: Providers Provider Date of Service: 11/21/23 Date of admission: 11/18/23 00:04 Primary care physician: Unknown Physician Consults: 11/18/23 00:04 Consult for Sitter Routine Reason for consultation: SI 11/18/23 00:07 Consult to Psychiatry Routine Consulting Provider: Psych Covering Reason for consultation: depression ; 11/18/23 01:50 Addiction Medicine Routine Consulting Provider: Addiction Covering Reason for consultation: alcohol use disorder 11/21/23 07:13 Consult to Care Team Routine Comment: Reason for consultation: medically clear DS: Diagnosis Discharge Diagnosis (1) Intentional overdose: Status: Acute DS: Summary Hospital Course Hospital Course: History and physical as per admitting provider. This is a 43-year-old male with pertinent history of suicidal ideation with intentional overdose, alcohol use disorder, major depressive disorder who presents to the emergency department after intentional overdose. Patient states that prior to presentation he intentionally took multiple tablets of Wellbutrin. Initially he stated that he took 450 mg of extended release Wellbutrin but states he thinks it was more than 600 mg. Patient states that he is depressed and he wanted to take his life. He also smoked marijuana and took his paroxetine. Patient's last alcoholic drink was 2 hours prior to presentation and he does feel tremulous, nauseous and sweaty. Does have a history of alcohol withdrawals before. No fever, chills, chest discomfort, palpitations, shortness of breath, abdominal pain, changes in urinary or bowel habits. In the emergency department, poison control was contacted who recommended admission for monitoring and initiating NAC protocol despite Tylenol 43-year-old man treated for intentional overdose of Wellbutrin. Forty taking 600 mg of Wellbutrin. He was started on NAC protocol as per poison control, Tylenol levels normal, EKG with QTC of 414, no seizure activity, had a sitter for safety. LFTs trended down likely elevated in light of history of alcohol abuse. Patient placed on phenobarbital protocol with no signs of alcohol withdrawal. Patient also has a history of polysubstance abuse with tox screen positive for cocaine, marijuana. Discussed case with Psychiatry. Restarted patient on paroxetine 20 mg and bupropion kept on hold. At this time patient is medically clear, was seen by care team with recommendation for psychiatric admission. Patient will be transferred to adult psych for further treatment of his depression. GERD. Continue PPI Smoker. Nicotine replacement therapy Time Attestation Discharge Coordination Time (in mins): 40 Quality: Safe Use of Opioids Does Pt have an Active Cancer Diagnosis on the Problem List?: No Quality: Stroke Does the patient have a stroke diagnosis?: No Physical Exam Vital Signs: Vital Signs: Last Vital Signs Temp 97.5 F 11/21/23 15:28 Pulse 80 11/21/23 15:28 Resp 18 11/21/23 15:28 BP 139/81 11/21/23 15:28 Pulse Ox 97 11/21/23 15:28 O2 Del Method Room Air 11/21/23 15:28 BMI result Body Mass Index 29.3 Appearing in no acute distress head is normocephalic atraumatic eyes pupils are PERRLA sclera is anicteric mouth throat mucous membranes are intact and moist neck is supple no lymphadenopathy, no JVD noted lung sounds are clear to auscultation heart regular rate rhythm, clear S1, S2 positive bowel sounds, abdomen is soft, nontender neuro patient is alert x3, no focal deficits Discharge Plan Discharge Anticipated Discharge Date/Time: 11/21/23 15:23 Patient Disposition: Xfer Psychiatric Hosp Discharge Diagnosis: Suicide attempt Transaminitis Discharge Medications: New paroxetine HCl 20 mg tablet 20 mg PO DAILY Qty: 30 0RF Continued pantoprazole 20 mg Tablet,Delayed Release (Dr/Ec) 20 mg PO DAILY Discontinued bupropion HCl 150 mg Tablet Extended Release 24 Hr 150 mg PO DAILY 30 Days Qty: 30 0RF paroxetine HCl 40 mg Tablet 40 mg PO DAILY Discharge Orders: Discharge Order (Routine); Ordered 11/21/23 Ordered By: Hillary Beverly Diet: Advance to usual diet Activity on Discharge: As tolerated Stand Alone Forms: Patient Portal Discharge page Care Plan Goals: Transfer to psychiatric floor for treatment of depression Health Concerns: Suicide attempt Transaminitis Plan of Treatment: Follow-up with primary care provider as needed Take all medications as prescribed Assessment: See discharge summary
[2023-11-21 15:50] LABS: COVID-19 Test Negative (Negative); IDNOW Serial# 152EDE1D
--- NOTE | 2023-11-21 16:21 | MHC.CM.PN ---
Patient has been medically cleared for dc today to [facility].
== END 2023-11-21 17:18 | DRG 812 ==
LOC: HO.ED 23:52 → HO.EDOVER 11-18 02:05 → HO.IMC 11-18 19:22
PROVIDERS: Physician Assistant Medical; Admitting Provider Student in an Organized Health Care Education/Training Program; Emergency Provider Emergency Medicine; Visit Provider Nurse Practitioner Acute Care
DX: T43.222A Poisoning by selective serotonin reuptake inhibitors, intentional self-harm, initial encounter (principal); F32.9 Major depressive disorder, single episode, unspecified; K21.9 Gastro-esophageal reflux disease without esophagitis; T43.292A Poisoning by other antidepressants, intentional self-harm, initial encounter; Z59.02 Unsheltered homelessness; F10.10 Alcohol abuse, uncomplicated; F17.210 Nicotine dependence, cigarettes, uncomplicated; F19.10 Other psychoactive substance abuse, uncomplicated; Z71.6 Tobacco abuse counseling; Z20.822 Contact with and (suspected) exposure to COVID-19; Y90.8 Blood alcohol level of 240 mg/100 ml or more; Z79.51 Long term (current) use of inhaled steroids; Z79.899 Other long term (current) drug therapy
CPT/HCPCS: 36415; 80048; 80053; 80076; 80143; 80179; 80307; 81003; 83735; 85025; 85610; 87635; 93005; 99285; J0132; J1650; J1885; J2405; J2560; J3411; S9485

== ENCOUNTER → 2023-11-17 21:52 | Outpatient (BNV) | payer BC, SELFPAY | PROVIDERS: Admitting Provider Student in an Organized Health Care Education/Training Program; Emergency Provider Emergency Medicine; Visit Provider Internal Medicine Cardiovascular Disease | DX: T50.901A Poisoning by unspecified drugs, medicaments and biological substances, accidental (unintentional), initial encounter (principal) | CPT/HCPCS: 93010 ==

== ENCOUNTER 2023-11-18 00:04 | Outpatient (BNV) | payer BC, SELFPAY | END 2023-11-18 08:45 | PROVIDERS: Admitting Provider Student in an Organized Health Care Education/Training Program; Emergency Provider Emergency Medicine; Visit Provider Internal Medicine Cardiovascular Disease | DX: I49.9 Cardiac arrhythmia, unspecified (principal) | CPT/HCPCS: 93010 ==

== ENCOUNTER → 2023-11-18 00:04 | Outpatient (BNV) | payer BC, SELFPAY | PROVIDERS: Admitting Provider Student in an Organized Health Care Education/Training Program; Emergency Provider Emergency Medicine; Visit Provider Student in an Organized Health Care Education/Training Program | DX: T50.902A Poisoning by unspecified drugs, medicaments and biological substances, intentional self-harm, initial encounter (principal) | CPT/HCPCS: 99222; 99232; 99239; 99499 ==

== ENCOUNTER → 2023-11-18 00:04 | Outpatient (BNV) | payer BC, SELFPAY | PROVIDERS: Admitting Provider Student in an Organized Health Care Education/Training Program; Emergency Provider Emergency Medicine; Visit Provider Clinical Nurse Specialist Psychiatric/Mental Health | DX: T14.91XA Suicide attempt, initial encounter (principal); T50.902A Poisoning by unspecified drugs, medicaments and biological substances, intentional self-harm, initial encounter; F33.2 Major depressive disorder, recurrent severe without psychotic features; F10.90 Alcohol use, unspecified, uncomplicated | CPT/HCPCS: 99222 ==

== ENCOUNTER 2023-11-21 17:37 | Inpatient (IN) | payer BC, SELFPAY ==
[2023-11-21 17:56] VITALS: BMI 30.1
[2023-11-21] MEDS: hydrOXYzine HCL 25 MG TABLET PO (18:08)
[2023-11-21 19:10] VITALS: BP 135/78; PULSE 65; RESP 17; TEMP 36.2; O2SAT 100
[2023-11-21] MEDS: LORazepam 1 MG TABLET PO (19:20)
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
[2023-11-21] MEDS: traZODone HCL 50 MG TABLET PO (21:16)
[2023-11-21] MEDS: Ibuprofen 400 MG TABLET PO (21:17)
[2023-11-22] MEDS: hydrOXYzine HCL 25 MG TABLET PO ×3 (03:26→20:38)
[2023-11-22 07:45] VITALS: BP 122/77; PULSE 63; RESP 18; TEMP 36.4; O2SAT 97
[2023-11-22] MEDS: Nicotine 21 MG PATCH.TD24 TRANSDERMA (08:17)
[2023-11-22] MEDS: PARoxetine HCL 20 MG TABLET PO (08:18)
[2023-11-22] MEDS: Multivitamin TABLET 1 TAB PO (08:18)
[2023-11-22] MEDS: Thiamine HCL 100 MG TABLET PO (08:19)
[2023-11-22] MEDS: Folic Acid 1 MG TABLET PO (08:19)
[2023-11-22] MEDS: Omeprazole 20 MG CAPSULE.DR PO (08:19)
[2023-11-22] MEDS: Fluticasone Propionate Nasal 16 GM SPRAY 2 SPRAY NOSTRIL-B (08:59)
--- NOTE | 2023-11-22 08:59 | P.HPPS_ITS ---
HPI Date of Service: 11/22/23 Chief Complaint: Crisis Sources of Information: patient interviewed, chart reviewed and crisis/core team assessment reviewed HPI Subjective Notes: Morris Warning and Conditional Voluntary Narrative: Patient is a 43 year old male with hx of MDD, ETOH abuse and cocaine use d/o who overdosed on Paxil and Wellbutrin while drinking 25 nips of alcohol, used crack cocaine and THC d/t suicidal ideation secondary to increased depressive symptoms. Per crisis report, pt was BIBA on 11/17/23 called by himself following an intentional ingestion of Paxil and Wellbutrin. He was drinking 25 nips, used crack cocaine and marijuana. He was medically cleared on 11/21/23 on medical floor and was referred to CARE team for inpatient admission. During admission assessment, pt presents calm and cooperative. Pt reports feeli ng depressed ; pt stated, I was drinking, smoking and using crack with my friend. I kept going and then I got suicidal. I feel depressed because I can't leave the [facility] and move to [place] to be with my mom until I save enough money . Pt reports once he has saved enough money, he plans on moving in with his mother in [place]. He reports using $300 worth of crack prior to admission; pt stated, I do it every once in a while cause my friend is a dealer and it's easy to get . Pt reports he is interested in a substance abuse program in the area or respite. He would like help staying sober and a men's swim coach ; addiction consult placed. Pt does have a hx of 10 years sobriety. Pt reports he also does not have a psychiatric prescriber or therapist; which he would like referrals. 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 Past Psychiatric History: Pt does not have outpatient therapist or prescriber. [facility] 09/2023. hx of sober house. Medical Evaluation Reviewed: Yes REPLACED BY [facility] Medical History Alcohol use disorder Major depression Suicide attempt by multiple drug overdose Drug overdose Family History: hx of alcoholism. Social History: Homeless; staying in his car. In process of getting a divorce. no children. 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 Substance History: ETOH abuse, crack, marijuana. Diagnostics Vital Signs (24Hr): Vital Signs - 24 hr 11/21/23 19:10 11/22/23 07:45 Temperature 97.2 F 97.5 F Pulse Rate 65 63 Respiratory Rate 17 18 Blood Pressure 135/78 122/77 Pulse Oximetry 100 97 Oxygen Delivery Method Room Air Room Air BMI result Body Mass Index 30.1 Meds/Allergies Meds Home Medications Medication Instructions Recorded Confirmed Type pantoprazole 20 mg tablet,delayed 20 mg PO DAILY 11/18/23 11/18/23 History release Allergies Allergies Allergy/AdvReac Type Severity Reaction Status Date / Time No Known Allergies Allergy Verified 09/07/23 20:44 Mental Status Exam Mental Status Exam Narrative: Pt is alert and oriented; behavior is cooperative and calm; dressed in casual attire; mood is described as depressed ; eye contact appropriate; Speech is normal rate, volume and prosody and not pressured; thought process is organized and goal directed; Thought content is on tx; otherwise pertinent to relevant topics and without any delusional content, paranoid ideations or grandiosity; denies SI/HI/VH/AH. Assessment & Plan Assessment & Plan (1) MDD (major depressive disorder), recurrent episode, severe: Status: Acute Code(s): F33.2 - Major depressive disorder, recurrent severe without psychotic features (2) Alcohol use disorder: Status: Acute Code(s): F10.90 - Alcohol use, unspecified, uncomplicated (3) Cocaine abuse: Status: Acute Code(s): F14.10 - Cocaine abuse, uncomplicated Plan Patient is a 43 year old male with hx of MDD, ETOH abuse and cocaine use d/o who overdosed on Paxil and Wellbutrin while drinking 25 nips of alcohol, used crack cocaine and THC d/t suicidal ideation secondary to increased depressive symptoms. Plan: CV 15 minute safety checks Continue home medications; continue to hold wellbutrin for now. Addiction consult Referral to outpatient therapist and prescriber Referral to substance abuse program or respite [facility] Q4H discharge planning Patient educated on: diagnosis, medication risk/benefits, substance abuse and therapeutic strategies Informed Consent: understands Reason for continued inpatient stay Substantial Risk for: harm to self and med/psych decompensation Statement Statement: I have reviewed the history and physical and performed a pertinent examination on my patient. No changes have occurred unless specified. If the History and Physical was not performed prior to admission, the Hospitalist's service will be consulted for completing the admission physical. Time Spent With Patient Time: Total time managing care of this patient today _60___ minutes.
[2023-11-22] MEDS: Ibuprofen 400 MG TABLET PO ×2 (09:00→16:13)
[2023-11-22] MEDS: LORazepam 1 MG TABLET PO ×2 (09:00→16:13)
--- NOTE | 2023-11-22 14:48 | MHC.RECOVRN ---
AUDIT-C Brief Intervention Pt had positive screen for unhealthy alcohol use on admission, subsequently met with t/w to discuss alcohol use and recovery supports/options. Addiction Consult also received for cocaine use. Pt voices concern regarding alcohol use and is aware that drinking at unhealthy levels is known to increase risk of alcohol related health problems. Pt reports 10-30 nips daily x 5 months. Pt had recurrence in July 2023 after 10 years in recovery. Pt expresses how alcohol use has impacted health, including negative impact on mental health. Discussed risk reduction strategies including drinking below the recommended limit. Discussed harm reduction regarding cocaine use and risk for overdose if fentanyl is present in cocaine. Provided pt with written resources including information on inpatient and outpatient treatment, KELL, harm reduction, and recovery coaching. Pt reports Vivitrol injection 10 years ago with positive effect and would like to initiate naltrexone while inpatient. Pt plans to move to [place] upon discharge [place] live with mother [place]. Discussed needing a provider in [place] to continue naltrexone, pt reports he will be near [place] and does not believe he will have difficulty finding a provider. Pt provided with t/w contact information if questions or concerns arise. Denies other questions or concerns at this time. Discussed with Yeny Padilla APRN.
[2023-11-22 18:00] VITALS: BP 120/70; PULSE 68; RESP 16; TEMP 36.4; O2SAT 98
[2023-11-22] MEDS: Acetaminophen 325 MG TABLET 650 MG PO (18:35)
[2023-11-22] MEDS: traZODone HCL 50 MG TABLET PO (20:37)
[2023-11-22] MEDS: Melatonin 3 MG TABLET 6 MG PO (20:37)
[2023-11-23 07:46] VITALS: BP 121/69; PULSE 64; RESP 16; TEMP 36.1; O2SAT 97
[2023-11-23] MEDS: PARoxetine HCL 20 MG TABLET PO (08:45)
[2023-11-23] MEDS: Naltrexone HCl 50 MG TABLET 25 MG PO (08:46)
[2023-11-23] MEDS: Ibuprofen 400 MG TABLET PO ×3 (08:47→20:32)
[2023-11-23] MEDS: Omeprazole 20 MG CAPSULE.DR PO (08:47)
[2023-11-23] MEDS: Thiamine HCL 100 MG TABLET PO (08:47)
[2023-11-23] MEDS: Fluticasone Propionate Nasal 16 GM SPRAY 2 SPRAY NOSTRIL-B (08:49)
[2023-11-23] MEDS: Nicotine 21 MG PATCH.TD24 TRANSDERMA (08:50)
[2023-11-23] MEDS: Folic Acid 1 MG TABLET PO (08:50)
[2023-11-23 09:08] LABS: Alanine Aminotransferase 73 U/L (0-40); Albumin Level 3.8 g/dL (3.5-5.0); Alkaline Phosphatase 76 U/L (39-117); Anion Gap 13 (12-20); Aspartate Amino Transferase 45 U/L (5-37); Bilirubin Total 0.3 mg/dL (0.0-1.0); Blood Urea Nitrogen 11 mg/dL (9-16); Calcium 9.3 mg/dL (8.4-10.2); Carbon Dioxide 25 mmol/L (22-29); Chloride 106 mmol/L (96-108); Cholesterol 225 mg/dL (<200); Creatinine Clr Calc Pharmacy 137.1; Estimated Glomerular Filt Rate > 60; Glucose Fasting 132 mg/dL (60-99); HDL Cholesterol 49 mg/dL (>40); Potassium 4.1 mmol/L (3.3-5.1); Sodium 140 mmol/L (135-145); Total Protein 6.8 g/dL (6.5-8.0); Triglycerides 519 mg/dL (<150)
[2023-11-23] MEDS: LORazepam 1 MG TABLET PO (09:14)
[2023-11-23] MEDS: Multivitamin TABLET 1 TAB PO (09:15)
--- NOTE | 2023-11-23 10:24 | P.PNPSI_ITS ---
Subjective Subjective Date of Service: 11/23/23 Reason For Visit: Crisis Subjective Notes: Conditional Voluntary Interim History: patient is a 43 year old male with hx of MDD, ETOH abuse and cocaine use d/o who overdosed on Paxil and Wellbutrin while drinking 25 nips of alcohol, used crack cocaine and THC d/t suicidal ideation secondary to increased depressive symptoms. chart reviewed, discussed with team, pt seen. pt reports still depressed but no suicidal. reports he wants to go to [place] where his mother lives and rebuild his life there. He reports intention to remain sober, abstinent. he reports the naltrexone seems to be decreasing cravings for ETOH. Pt would like to restart wellbutrin. he feels it has been helpful to give him energy and motivation in past. Medication Compliance: Yes Side effects from medications: No Attending Groups: Yes Review of Systems Acute medical concerns: No Medical Review of Systems: unchanged Review of Systems Constitutional: Reports as per HPI Eyes: Reports as per HPI Reports as per HPI Cardiovascular: Reports as per HPI Respiratory: Reports as per HPI Gastrointestinal: Reports as per HPI Genitourinary: Reports as per HPI Musculoskeletal: Reports as per HPI Skin/Breast: Reports as per HPI Reports as per HPI Psychiatric: Reports as per HPI Endocrine: Reports as per HPI Hematologic/Lymphatic: Reports as per HPI Allergic/Immunologic: Reports as per HPI Mental Status Exam Mental Status Exam Narrative: Pt is alert and oriented; behavior is cooperative and calm; dressed in casual attire; mood is described as depressed ; eye contact appropriate; Speech is normal rate, volume and prosody and not pressured; thought process is organized and goal directed; Thought content is on tx; otherwise pertinent to relevant topics and without any delusional content, paranoid ideations or grandiosity; denies SI/HI/VH/AH. Diagnostics Vital Signs (24Hr): Vital Signs - 24 hr 11/22/23 18:00 11/23/23 07:46 Temperature 97.5 F 97.0 F Pulse Rate 68 64 Respiratory Rate 16 16 Blood Pressure 120/70 121/69 Pulse Oximetry 98 97 Oxygen Delivery Method Room Air Room Air BMI result Body Mass Index 30.1 Labs 11/23/23 08:21 Labs: Laboratory Results - last 48 hr 11/23/23 08:21 Hold Purple Top SEE NOTE Sodium 140 Potassium 4.1 Chloride 106 Carbon Dioxide 25 Anion Gap 13 BUN 11 Creatinine 0.82 Estim Creat Clear Calc 137.1 Estimated GFR > 60 Fasting Glucose 132 H Calcium 9.3 D Total Bilirubin 0.3 AST 45 H ALT 73 H Alkaline Phosphatase 76 Total Protein 6.8 Albumin 3.8 Triglycerides 519 H Cholesterol 225 H LDL Cholesterol, Calc TNP HDL Cholesterol 49 Medications Medications Current Medications Acetaminophen (Acetaminophen 325 Mg Tablet) 650 mg PO Q6H PRN PRN Reason: Headache/Pain Mild Scale (1-3) Last Admin: 11/22/23 18:35 Dose: 650 mg Al Hydroxide/Mg Hydroxide (Magnesium Hydrox/Alum Hydrox 30 Ml Oral.Susp) 30 ml PO Q6H PRN PRN Reason: Heartburn/Nausea Calcium Carbonate (Calcium Carbonate 750 Mg Tab.Chew) 750 mg PO Q4H PRN PRN Reason: Heartburn Fluticasone Propionate (Fluticasone Propionate Nasal 16 Gm [place]) 2 spray NOSTRIL-B DAILY [facility] Last Admin: 11/23/23 08:49 Dose: 2 spray Folic Acid (Folic Acid 1 Mg Tablet) 1 mg PO DAILY [facility] Last Admin: 11/23/23 08:50 Dose: 1 mg Hydroxyzine HCl (Hydroxyzine Hcl 25 Mg Tablet) 25 mg PO Q6H PRN PRN Reason: Anxiety Last Admin: 11/22/23 20:38 Dose: 25 mg Ibuprofen (Ibuprofen 400 Mg Tablet) 400 mg PO TIDWM PRN PRN Reason: Pain, Moderate(Pain Scale 4-6) Last Admin: 11/23/23 08:47 Dose: 400 mg Magnesium Hydroxide (Milk Of Magnesia 30 Ml Oral.Susp) 30 ml PO DAILY PRN PRN Reason: Constipation Melatonin (Melatonin 3 Mg Tablet) 6 mg PO BEDTIME PRN PRN Reason: Insomnia Last Admin: 11/22/23 20:37 Dose: 6 mg Multivitamins/Vitamin C (Multivitamin Tablet) 1 tab PO DAILY [facility] Last Admin: 11/23/23 09:15 Dose: 1 tab Naltrexone HCl (Naltrexone Hcl 50 Mg Tablet) 25 mg PO DAILY [facility] Stop: 11/25/23 09:01 Last Admin: 11/23/23 08:46 Dose: 25 mg Naltrexone HCl (Naltrexone Hcl 50 Mg Tablet) 50 mg PO DAILY [facility] Nicotine (Nicotine 21 Mg Patch.Td24) 21 mg TRANSDERMA DAILY [facility] Last Admin: 11/23/23 08:50 Dose: 21 mg Nicotine Polacrilex (Nicotine Polacrilex 2 Mg Gum) 4 mg BUCCAL Q2H PRN PRN Reason: Nicotine Cravings Omeprazole (Omeprazole 20 Mg Capsule.Dr) 20 mg PO DAILY [facility] Last Admin: 11/23/23 08:47 Dose: 20 mg Ondansetron HCl (Ondansetron Odt 4 Mg Tab.Rapdis) 4 mg TRANSLINGU Q8H PRN PRN Reason: Nausea and Vomiting Paroxetine HCl (Paroxetine Hcl 20 Mg Tablet) 20 mg PO DAILY [facility] Last Admin: 11/23/23 08:45 Dose: 20 mg Thiamine HCl (Thiamine Hcl 100 Mg Tablet) 100 mg PO DAILY [facility] Last Admin: 11/23/23 08:47 Dose: 100 mg Trazodone HCl (Trazodone Hcl 50 Mg Tablet) 50 mg PO BEDTIME MRX1 PRN PRN Reason: Insomnia Last Admin: 11/22/23 20:37 Dose: 50 mg Allergies Allergies Allergy/AdvReac Type Severity Reaction Status Date / Time No Known Allergies Allergy Verified 09/07/23 20:44 Assessment & Plan Assessment & Plan (1) MDD (major depressive disorder), recurrent episode, severe: Status: Acute Code(s): F33.2 - Major depressive disorder, recurrent severe without psychotic features (2) Alcohol use disorder: Status: Acute Code(s): F10.90 - Alcohol use, unspecified, uncomplicated (3) Cocaine abuse: Status: Acute Code(s): F14.10 - Cocaine abuse, uncomplicated Plan Patient is a 43 year old male with hx of MDD, ETOH abuse and cocaine use d/o who overdosed on Paxil and Wellbutrin while drinking 25 nips of alcohol, used crack cocaine and THC d/t suicidal ideation secondary to increased depressive symptoms. Plan: CV 15 minute safety checks Continue home medications; continue to hold wellbutrin for now. Addiction consult Referral to outpatient therapist and prescriber Referral to substance abuse program or respite [facility] Q4H discharge planning 11/23/23 continue treatment plan consider restarting wellbutrin continue to assess suicidal ideation given risk especially in light of pending divorce, change in living situation, job loss, and substance abuse Patient educated on: diagnosis, medication risk/benefits, substance abuse and therapeutic strategies Informed Consent: understands and further education needed Reason for continued inpatient stay Substantial Risk for: harm to self, inability to function and rapid decompensation Time Spent With Patient Time: Total time managing care of this patient today ____ minutes.
[2023-11-23] MEDS: hydrOXYzine HCL 25 MG TABLET PO ×2 (11:31→17:30)
[2023-11-23 19:40] VITALS: BP 121/72; PULSE 76; RESP 16; TEMP 36.5; O2SAT 98
[2023-11-23] MEDS: traZODone HCL 50 MG TABLET PO ×2 (21:08→23:00)
[2023-11-23] MEDS: Melatonin 3 MG TABLET 6 MG PO (21:08)
[2023-11-24] MEDS: hydrOXYzine HCL 25 MG TABLET PO ×4 (00:22→21:28)
[2023-11-24] MEDS: Acetaminophen 325 MG TABLET 650 MG PO ×2 (05:22→19:01)
[2023-11-24 07:00] VITALS: BMI 30.8
[2023-11-24 07:10] VITALS: BP 126/58; PULSE 68; RESP 16; TEMP 36.2; O2SAT 98
[2023-11-24] MEDS: PARoxetine HCL 20 MG TABLET PO (08:45)
[2023-11-24] MEDS: Naltrexone HCl 50 MG TABLET 25 MG PO (08:46)
[2023-11-24] MEDS: Folic Acid 1 MG TABLET PO (08:47)
[2023-11-24] MEDS: Multivitamin TABLET 1 TAB PO (08:47)
[2023-11-24] MEDS: Nicotine 21 MG PATCH.TD24 TRANSDERMA (08:47)
[2023-11-24] MEDS: Omeprazole 20 MG CAPSULE.DR PO (08:47)
[2023-11-24] MEDS: Thiamine HCL 100 MG TABLET PO (08:47)
[2023-11-24] MEDS: Fluticasone Propionate Nasal 16 GM SPRAY 2 SPRAY NOSTRIL-B (09:23)
--- NOTE | 2023-11-24 11:55 | HO.PSYCHPN ---
Subjective Subjective Date of Service: 11/24/23 Reason For Visit: Crisis Subjective Notes: Conditional Voluntary Interim History: Reviewed with Dr. Moss. Active on unit, social with peers. attending groups. Pt reports feeling better than when I first came in ; continues to report some anxiety and depression. Pt reports he believes Naltrexone must be doing something because I'm not thinking about alcohol . denies SI/HI/VH/AH. Medication Compliance: Yes Side effects from medications: No Attending Groups: Yes Review of Systems Constitutional: Reports as per HPI Eyes: Reports as per HPI Reports as per HPI Cardiovascular: Reports as per HPI Respiratory: Reports as per HPI Gastrointestinal: Reports as per HPI Genitourinary: Reports as per HPI Musculoskeletal: Reports as per HPI Skin/Breast: Reports as per HPI Reports as per HPI Psychiatric: Reports as per HPI Endocrine: Reports as per HPI Hematologic/Lymphatic: Reports as per HPI Allergic/Immunologic: Reports as per HPI Mental Status Exam Mental Status Exam Narrative: Pt is alert and oriented; behavior is cooperative, friendly and calm; dressed in casual attire; mood is described as anxious and depressed ; eye contact appropriate; Speech is normal rate, volume and prosody and not pressured; thought process is organized and goal directed; Thought content is on tx; denies SI/HI/VH/AH. Diagnostics Vital Signs (24Hr): Vital Signs - 24 hr 11/23/23 19:40 11/24/23 07:10 Temperature 97.7 F 97.2 F Pulse Rate 76 68 Respiratory Rate 16 16 Blood Pressure 121/72 126/58 L Pulse Oximetry 98 98 Oxygen Delivery Method Room Air Room Air BMI result Body Mass Index 30.8 Labs 11/23/23 08:21 Labs: Laboratory Results - last 48 hr 11/23/23 08:21 Hold Purple Top SEE NOTE Sodium 140 Potassium 4.1 Chloride 106 Carbon Dioxide 25 Anion Gap 13 BUN 11 Creatinine 0.82 Estim Creat Clear Calc 137.1 Estimated GFR > 60 Fasting Glucose 132 H Calcium 9.3 D Total Bilirubin 0.3 AST 45 H ALT 73 H Alkaline Phosphatase 76 Total Protein 6.8 Albumin 3.8 Triglycerides 519 H Cholesterol 225 H LDL Cholesterol, Calc TNP HDL Cholesterol 49 Medications Medications Current Medications Acetaminophen (Acetaminophen 325 Mg Tablet) 650 mg PO Q6H PRN PRN Reason: Headache/Pain Mild Scale (1-3) Last Admin: 11/24/23 05:22 Dose: 650 mg Al Hydroxide/Mg Hydroxide (Magnesium Hydrox/Alum Hydrox 30 Ml Oral.Susp) 30 ml PO Q6H PRN PRN Reason: Heartburn/Nausea Calcium Carbonate (Calcium Carbonate 750 Mg Tab.Chew) 750 mg PO Q4H PRN PRN Reason: Heartburn Fluticasone Propionate (Fluticasone Propionate Nasal 16 Gm [place]) 2 spray NOSTRIL-B DAILY [facility] Last Admin: 11/24/23 09:23 Dose: 2 spray Folic Acid (Folic Acid 1 Mg Tablet) 1 mg PO DAILY [facility] Last Admin: 11/24/23 08:47 Dose: 1 mg Hydroxyzine HCl (Hydroxyzine Hcl 25 Mg Tablet) 25 mg PO Q6H PRN PRN Reason: Anxiety Last Admin: 11/24/23 06:47 Dose: 25 mg Ibuprofen (Ibuprofen 400 Mg Tablet) 400 mg PO TIDWM PRN PRN Reason: Pain, Moderate(Pain Scale 4-6) Last Admin: 11/23/23 20:32 Dose: 400 mg Magnesium Hydroxide (Milk Of Magnesia 30 Ml Oral.Susp) 30 ml PO DAILY PRN PRN Reason: Constipation Melatonin (Melatonin 3 Mg Tablet) 6 mg PO BEDTIME PRN PRN Reason: Insomnia Last Admin: 11/23/23 21:08 Dose: 6 mg Multivitamins/Vitamin C (Multivitamin Tablet) 1 tab PO DAILY [facility] Last Admin: 11/24/23 08:47 Dose: 1 tab Naltrexone HCl (Naltrexone Hcl 50 Mg Tablet) 25 mg PO DAILY [facility] Stop: 11/25/23 09:01 Last Admin: 11/24/23 08:46 Dose: 25 mg Naltrexone HCl (Naltrexone Hcl 50 Mg Tablet) 50 mg PO DAILY [facility] Nicotine (Nicotine 21 Mg Patch.Td24) 21 mg TRANSDERMA DAILY [facility] Last Admin: 11/24/23 08:47 Dose: 21 mg Nicotine Polacrilex (Nicotine Polacrilex 2 Mg Gum) 4 mg BUCCAL Q2H PRN PRN Reason: Nicotine Cravings Omeprazole (Omeprazole 20 Mg Capsule.Dr) 20 mg PO DAILY [facility] Last Admin: 11/24/23 08:47 Dose: 20 mg Ondansetron HCl (Ondansetron Odt 4 Mg Tab.Rapdis) 4 mg TRANSLINGU Q8H PRN PRN Reason: Nausea and Vomiting Paroxetine HCl (Paroxetine Hcl 20 Mg Tablet) 20 mg PO DAILY [facility] Last Admin: 11/24/23 08:45 Dose: 20 mg Thiamine HCl (Thiamine Hcl 100 Mg Tablet) 100 mg PO DAILY [facility] Last Admin: 11/24/23 08:47 Dose: 100 mg Trazodone HCl (Trazodone Hcl 50 Mg Tablet) 50 mg PO BEDTIME MRX1 PRN PRN Reason: Insomnia Last Admin: 11/23/23 23:00 Dose: 50 mg Allergies Allergies Allergy/AdvReac Type Severity Reaction Status Date / Time No Known Allergies Allergy Verified 09/07/23 20:44 Assessment & Plan Assessment & Plan (1) MDD (major depressive disorder), recurrent episode, severe: Status: Acute Code(s): F33.2 - Major depressive disorder, recurrent severe without psychotic features (2) Alcohol use disorder: Status: Acute Code(s): F10.90 - Alcohol use, unspecified, uncomplicated (3) Cocaine abuse: Status: Acute Code(s): F14.10 - Cocaine abuse, uncomplicated Plan Patient is a 43 year old male with hx of MDD, ETOH abuse and cocaine use d/o who overdosed on Paxil and Wellbutrin while drinking 25 nips of alcohol, used crack cocaine and THC d/t suicidal ideation secondary to increased depressive symptoms. Plan: CV 15 minute safety checks Continue home medications; continue to hold wellbutrin for now. Addiction consult Referral to outpatient therapist and prescriber Referral to substance abuse program or respite [facility] Q4H discharge planning 11/23/23 continue treatment plan consider restarting wellbutrin continue to assess suicidal ideation given risk especially in light of pending divorce, change in living situation, job loss, and substance abuse 11/23: Active on unit, social with peers. attending groups. Pt reports feeling better than when I first came in ; continues to report some anxiety and depression. Pt reports he believes Naltrexone must be doing something because I'm not thinking about alcohol . denies SI/HI/VH/AH. continue current tx plan. Patient educated on: diagnosis, medication risk/benefits and therapeutic strategies Informed Consent: understands Reason for continued inpatient stay Substantial Risk for: med/psych decompensation Time Spent With Patient Time: Total time managing care of this patient today _20___ minutes.
[2023-11-24 20:05] VITALS: BP 137/67; PULSE 82; RESP 16; TEMP 36.7; O2SAT 97
[2023-11-24] MEDS: Ibuprofen 400 MG TABLET PO (20:22)
[2023-11-24] MEDS: Pseudoephedrine HCL 30 MG TABLET PO (20:59)
[2023-11-24] MEDS: traZODone HCL 50 MG TABLET PO ×2 (21:28→23:03)
[2023-11-24] MEDS: Melatonin 3 MG TABLET 6 MG PO (21:28)
[2023-11-25] MEDS: hydrOXYzine HCL 25 MG TABLET PO ×3 (04:57→20:36)
[2023-11-25 06:00] VITALS: BP 121/63; PULSE 69; RESP 16; TEMP 37.3; O2SAT 99
[2023-11-25] MEDS: Nicotine 21 MG PATCH.TD24 TRANSDERMA (08:35)
[2023-11-25] MEDS: Naltrexone HCl 50 MG TABLET 25 MG PO (08:36)
[2023-11-25] MEDS: Folic Acid 1 MG TABLET PO (08:36)
[2023-11-25] MEDS: Multivitamin TABLET 1 TAB PO (08:36)
[2023-11-25] MEDS: Fluticasone Propionate Nasal 16 GM SPRAY 2 SPRAY NOSTRIL-B (08:36)
[2023-11-25] MEDS: Ibuprofen 400 MG TABLET PO ×2 (08:36→18:37)
[2023-11-25] MEDS: Thiamine HCL 100 MG TABLET PO (08:36)
[2023-11-25] MEDS: Omeprazole 20 MG CAPSULE.DR PO (08:37)
[2023-11-25] MEDS: PARoxetine HCL 20 MG TABLET PO (08:37)
--- NOTE | 2023-11-25 09:29 | HO.PSYCHPN ---
Subjective Subjective Date of Service: 11/25/23 Reason For Visit: Crisis Subjective Notes: Conditional Voluntary Interim History: Reviewed with Dr. Moss. Active on unit, social with peers. attending groups. Pt reports feeling okay ; pt stated, when I leave here I'm going to say bye to a few people then drive down to [place]. My mom is expecting me. I don't have a desire to use. I'm not going to waste my money . pt denies SI/HI/VH/AH. Medication Compliance: Yes Side effects from medications: No Attending Groups: Yes Review of Systems Constitutional: Reports as per HPI Eyes: Reports as per HPI Reports as per HPI Cardiovascular: Reports as per HPI Respiratory: Reports as per HPI Gastrointestinal: Reports as per HPI Genitourinary: Reports as per HPI Musculoskeletal: Reports as per HPI Skin/Breast: Reports as per HPI Reports as per HPI Psychiatric: Reports as per HPI Endocrine: Reports as per HPI Hematologic/Lymphatic: Reports as per HPI Allergic/Immunologic: Reports as per HPI Mental Status Exam Mental Status Exam Narrative: Pt is alert and oriented; behavior is cooperative, friendly and calm; dressed in casual attire; mood is described as anxious and depressed ; eye contact appropriate; Speech is normal rate, volume and prosody and not pressured; thought process is organized and goal directed; Thought content is on tx; denies SI/HI/VH/AH. Diagnostics Vital Signs (24Hr): Vital Signs - 24 hr 11/24/23 20:05 11/25/23 06:00 Temperature 98.1 F 99.1 F Pulse Rate 82 69 Respiratory Rate 16 16 Blood Pressure 137/67 121/63 Pulse Oximetry 97 99 Oxygen Delivery Method Room Air Room Air BMI result Body Mass Index 30.8 Labs 11/23/23 08:21 Medications Medications Current Medications Acetaminophen (Acetaminophen 325 Mg Tablet) 650 mg PO Q6H PRN PRN Reason: Headache/Pain Mild Scale (1-3) Last Admin: 11/24/23 19:01 Dose: 650 mg Al Hydroxide/Mg Hydroxide (Magnesium Hydrox/Alum Hydrox 30 Ml Oral.Susp) 30 ml PO Q6H PRN PRN Reason: Heartburn/Nausea Calcium Carbonate (Calcium Carbonate 750 Mg Tab.Chew) 750 mg PO Q4H PRN PRN Reason: Heartburn Fluticasone Propionate (Fluticasone Propionate Nasal 16 Gm [place]) 2 spray NOSTRIL-B DAILY [facility] Last Admin: 11/25/23 08:36 Dose: 2 spray Folic Acid (Folic Acid 1 Mg Tablet) 1 mg PO DAILY [facility] Last Admin: 11/25/23 08:36 Dose: 1 mg Hydroxyzine HCl (Hydroxyzine Hcl 25 Mg Tablet) 25 mg PO Q6H PRN PRN Reason: Anxiety Last Admin: 11/25/23 04:57 Dose: 25 mg Ibuprofen (Ibuprofen 400 Mg Tablet) 400 mg PO TIDWM PRN PRN Reason: Pain, Moderate(Pain Scale 4-6) Last Admin: 11/25/23 08:36 Dose: 400 mg Magnesium Hydroxide (Milk Of Magnesia 30 Ml Oral.Susp) 30 ml PO DAILY PRN PRN Reason: Constipation Melatonin (Melatonin 3 Mg Tablet) 6 mg PO BEDTIME PRN PRN Reason: Insomnia Last Admin: 11/24/23 21:28 Dose: 6 mg Multivitamins/Vitamin C (Multivitamin Tablet) 1 tab PO DAILY [facility] Last Admin: 11/25/23 08:36 Dose: 1 tab Naltrexone HCl (Naltrexone Hcl 50 Mg Tablet) 50 mg PO DAILY [facility] Nicotine (Nicotine 21 Mg Patch.Td24) 21 mg TRANSDERMA DAILY [facility] Last Admin: 11/25/23 08:35 Dose: 21 mg Nicotine Polacrilex (Nicotine Polacrilex 2 Mg Gum) 4 mg BUCCAL Q2H PRN PRN Reason: Nicotine Cravings Omeprazole (Omeprazole 20 Mg Capsule.Dr) 20 mg PO DAILY [facility] Last Admin: 11/25/23 08:37 Dose: 20 mg Ondansetron HCl (Ondansetron Odt 4 Mg Tab.Rapdis) 4 mg TRANSLINGU Q8H PRN PRN Reason: Nausea and Vomiting Paroxetine HCl (Paroxetine Hcl 20 Mg Tablet) 20 mg PO DAILY [facility] Last Admin: 11/25/23 08:37 Dose: 20 mg Pseudoephedrine HCl (Pseudoephedrine Hcl 30 Mg Tablet) 30 mg PO Q4H PRN PRN Reason: Congestion Last Admin: 11/24/23 20:59 Dose: 30 mg Thiamine HCl (Thiamine Hcl 100 Mg Tablet) 100 mg PO DAILY [facility] Last Admin: 11/25/23 08:36 Dose: 100 mg Trazodone HCl (Trazodone Hcl 50 Mg Tablet) 50 mg PO BEDTIME MRX1 PRN PRN Reason: Insomnia Last Admin: 11/24/23 23:03 Dose: 50 mg Allergies Allergies Allergy/AdvReac Type Severity Reaction Status Date / Time No Known Allergies Allergy Verified 09/07/23 20:44 Assessment & Plan Assessment & Plan (1) MDD (major depressive disorder), recurrent episode, severe: Status: Acute Code(s): F33.2 - Major depressive disorder, recurrent severe without psychotic features (2) Alcohol use disorder: Status: Acute Code(s): F10.90 - Alcohol use, unspecified, uncomplicated (3) Cocaine abuse: Status: Acute Code(s): F14.10 - Cocaine abuse, uncomplicated Plan Patient is a 43 year old male with hx of MDD, ETOH abuse and cocaine use d/o who overdosed on Paxil and Wellbutrin while drinking 25 nips of alcohol, used crack cocaine and THC d/t suicidal ideation secondary to increased depressive symptoms. Plan: CV 15 minute safety checks Continue home medications; continue to hold wellbutrin for now. Addiction consult Referral to outpatient therapist and prescriber Referral to substance abuse program or respite [facility] Q4H discharge planning 11/23/23continue treatment plan consider restarting wellbutrin continue to assess suicidal ideation given risk especially in light of pending divorce, change in living situation, job loss, and substance abuse 11/23: Active on unit, social with peers. attending groups. Pt reports feeling better than when I first came in ; continues to report some anxiety and depression. Pt reports he believes Naltrexone must be doing something because I'm not thinking about alcohol . denies SI/HI/VH/AH. continue current tx plan. 11/24: Active on unit, social with peers. attending groups. Pt reports feeling okay ; pt stated, when I leave here I'm going to say bye to a few people then drive down to [place]. My mom is expecting me. I don't have a desire to use. I'm not going to waste my money . pt denies SI/HI/VH/AH. pt requesting to be restarted on Wellbutrin d/t helping with his mood and energy . Start: Wellbutrin 150mg daily Patient educated on: diagnosis, medication risk/benefits, substance abuse and therapeutic strategies Informed Consent: understands Reason for continued inpatient stay Substantial Risk for: med/psych decompensation Time Spent With Patient Time: Total time managing care of this patient today _20___ minutes.
[2023-11-25] MEDS: Pseudoephedrine HCL 30 MG TABLET PO ×3 (09:51→20:36)
[2023-11-25] MEDS: Acetaminophen 325 MG TABLET 650 MG PO (11:37)
[2023-11-25] MEDS: buPROPion HCl XL 150 MG TAB.ER.24H PO (13:16)
[2023-11-25 20:05] VITALS: BP 138/74; PULSE 84; RESP 16; TEMP 36.8; O2SAT 98
[2023-11-25] MEDS: traZODone HCL 50 MG TABLET PO ×2 (22:31→23:35)
[2023-11-25] MEDS: Melatonin 3 MG TABLET 6 MG PO (22:31)
[2023-11-26 07:10] VITALS: BP 128/71; PULSE 79; RESP 16; TEMP 36.3; O2SAT 99
[2023-11-26] MEDS: Ibuprofen 400 MG TABLET PO ×2 (07:14→13:31)
[2023-11-26] MEDS: hydrOXYzine HCL 25 MG TABLET PO ×2 (07:14→18:25)
--- NOTE | 2023-11-26 07:24 | HO.PSYCHPN ---
Subjective Subjective Date of Service: 11/26/23 Reason For Visit: Crisis Subjective Notes: Conditional Voluntary Interim History: Reviewed with Dr. Moss. Active on unit, social with peers. attending groups. Pt reports feeling better ; pt reports feeling ready to go on Tuesday . denies SI/HI/VH/AH. pt denies any side effects from restarting on Wellbutrin. Medication Compliance: Yes Side effects from medications: No Attending Groups: Yes Review of Systems Constitutional: Reports as per HPI Eyes: Reports as per HPI Reports as per HPI Cardiovascular: Reports as per HPI Respiratory: Reports as per HPI Gastrointestinal: Reports as per HPI Genitourinary: Reports as per HPI Musculoskeletal: Reports as per HPI Skin/Breast: Reports as per HPI Reports as per HPI Psychiatric: Reports as per HPI Endocrine: Reports as per HPI Hematologic/Lymphatic: Reports as per HPI Allergic/Immunologic: Reports as per HPI Mental Status Exam Mental Status Exam Narrative: Pt is alert and oriented; behavior is cooperative, friendly and calm; dressed in casual attire; mood is described as good ; eye contact appropriate; Speech is normal rate, volume and prosody and not pressured; thought process is organized and goal directed; Thought content is on discharge; denies SI/HI/VH/AH. Diagnostics Vital Signs (24Hr): Vital Signs - 24 hr 11/25/23 20:05 Temperature 98.3 F Pulse Rate 84 Respiratory Rate 16 Blood Pressure 138/74 Pulse Oximetry 98 Oxygen Delivery Method Room Air BMI result Body Mass Index 30.8 Labs 11/23/23 08:21 Medications Medications Current Medications Acetaminophen (Acetaminophen 325 Mg Tablet) 650 mg PO Q6H PRN PRN Reason: Headache/Pain Mild Scale (1-3) Last Admin: 11/25/23 11:37 Dose: 650 mg Al Hydroxide/Mg Hydroxide (Magnesium Hydrox/Alum Hydrox 30 Ml Oral.Susp) 30 ml PO Q6H PRN PRN Reason: Heartburn/Nausea Bupropion HCl (Bupropion Hcl Xl 150 Mg Tab.Er.24h) 150 mg PO DAILY [facility] Last Admin: 11/25/23 13:16 Dose: 150 mg Calcium Carbonate (Calcium Carbonate 750 Mg Tab.Chew) 750 mg PO Q4H PRN PRN Reason: Heartburn Fluticasone Propionate (Fluticasone Propionate Nasal 16 Gm [place]) 2 spray NOSTRIL-B DAILY [facility] Last Admin: 11/25/23 08:36 Dose: 2 spray Folic Acid (Folic Acid 1 Mg Tablet) 1 mg PO DAILY [facility] Last Admin: 11/25/23 08:36 Dose: 1 mg Hydroxyzine HCl (Hydroxyzine Hcl 25 Mg Tablet) 25 mg PO Q6H PRN PRN Reason: Anxiety Last Admin: 11/26/23 07:14 Dose: 25 mg Ibuprofen (Ibuprofen 400 Mg Tablet) 400 mg PO TIDWM PRN PRN Reason: Pain, Moderate(Pain Scale 4-6) Last Admin: 11/26/23 07:14 Dose: 400 mg Magnesium Hydroxide (Milk Of Magnesia 30 Ml Oral.Susp) 30 ml PO DAILY PRN PRN Reason: Constipation Melatonin (Melatonin 3 Mg Tablet) 6 mg PO BEDTIME PRN PRN Reason: Insomnia Last Admin: 11/25/23 22:31 Dose: 6 mg Multivitamins/Vitamin C (Multivitamin Tablet) 1 tab PO DAILY [facility] Last Admin: 11/25/23 08:36 Dose: 1 tab Naltrexone HCl (Naltrexone Hcl 50 Mg Tablet) 50 mg PO DAILY [facility] Nicotine (Nicotine 21 Mg Patch.Td24) 21 mg TRANSDERMA DAILY [facility] Last Admin: 11/25/23 08:35 Dose: 21 mg Nicotine Polacrilex (Nicotine Polacrilex 2 Mg Gum) 4 mg BUCCAL Q2H PRN PRN Reason: Nicotine Cravings Omeprazole (Omeprazole 20 Mg Capsule.Dr) 20 mg PO DAILY [facility] Last Admin: 11/25/23 08:37 Dose: 20 mg Ondansetron HCl (Ondansetron Odt 4 Mg Tab.Rapdis) 4 mg TRANSLINGU Q8H PRN PRN Reason: Nausea and Vomiting Paroxetine HCl (Paroxetine Hcl 20 Mg Tablet) 20 mg PO DAILY [facility] Last Admin: 11/25/23 08:37 Dose: 20 mg Pseudoephedrine HCl (Pseudoephedrine Hcl 30 Mg Tablet) 30 mg PO Q4H PRN PRN Reason: Congestion Last Admin: 11/25/23 20:36 Dose: 30 mg Thiamine HCl (Thiamine Hcl 100 Mg Tablet) 100 mg PO DAILY [facility] Last Admin: 11/25/23 08:36 Dose: 100 mg Trazodone HCl (Trazodone Hcl 50 Mg Tablet) 50 mg PO BEDTIME MRX1 PRN PRN Reason: Insomnia Last Admin: 11/25/23 23:35 Dose: 50 mg Allergies Allergies Allergy/AdvReac Type Severity Reaction Status Date / Time No Known Allergies Allergy Verified 09/07/23 20:44 Assessment & Plan Assessment & Plan (1) MDD (major depressive disorder), recurrent episode, severe: Status: Acute Code(s): F33.2 - Major depressive disorder, recurrent severe without psychotic features (2) Alcohol use disorder: Status: Acute Code(s): F10.90 - Alcohol use, unspecified, uncomplicated (3) Cocaine abuse: Status: Acute Code(s): F14.10 - Cocaine abuse, uncomplicated Plan Patient is a 43 year old male with hx of MDD, ETOH abuse and cocaine use d/o who overdosed on Paxil and Wellbutrin while drinking 25 nips of alcohol, used crack cocaine and THC d/t suicidal ideation secondary to increased depressive symptoms. Plan: CV 15 minute safety checks Continue home medications; continue to hold wellbutrin for now. Addiction consult Referral to outpatient therapist and prescriber Referral to substance abuse program or respite [facility] Q4H discharge planning 11/23/23continue treatment plan consider restarting wellbutrin continue to assess suicidal ideation given risk especially in light of pending divorce, change in living situation, job loss, and substance abuse 11/23: Active on unit, social with peers. attending groups. Pt reports feeling better than when I first came in ; continues to report some anxiety and depression. Pt reports he believes Naltrexone must be doing something because I'm not thinking about alcohol . denies SI/HI/VH/AH. continue current tx plan. 11/24: Active on unit, social with peers. attending groups. Pt reports feeling okay ; pt stated, when I leave here I'm going to say bye to a few people then drive down to [place]. My mom is expecting me. I don't have a desire to use. I'm not going to waste my money . pt denies SI/HI/VH/AH. pt requesting to be restarted on Wellbutrin d/t helping with his mood and energy . Start: Wellbutrin 150mg daily 11/25: Active on unit, social with peers. attending groups. Pt reports feeling better ; pt reports feeling ready to go on Tuesday . denies SI/HI/VH/AH. pt denies any side effects from restarting on Wellbutrin. continue current tx plan. Patient educated on: diagnosis, medication risk/benefits, substance abuse and therapeutic strategies Informed Consent: understands Reason for continued inpatient stay Substantial Risk for: med/psych decompensation Time Spent With Patient Time: Total time managing care of this patient today _20___ minutes.
[2023-11-26] MEDS: Thiamine HCL 100 MG TABLET PO (08:32)
[2023-11-26] MEDS: Naltrexone HCl 50 MG TABLET PO (08:32)
[2023-11-26] MEDS: buPROPion HCl XL 150 MG TAB.ER.24H PO (08:32)
[2023-11-26] MEDS: Pseudoephedrine HCL 30 MG TABLET PO ×3 (08:32→20:08)
[2023-11-26] MEDS: PARoxetine HCL 20 MG TABLET PO (08:32)
[2023-11-26] MEDS: Omeprazole 20 MG CAPSULE.DR PO (08:32)
[2023-11-26] MEDS: Nicotine 21 MG PATCH.TD24 TRANSDERMA (08:32)
[2023-11-26] MEDS: Folic Acid 1 MG TABLET PO (08:32)
[2023-11-26] MEDS: Multivitamin TABLET 1 TAB PO (08:33)
[2023-11-26] MEDS: Fluticasone Propionate Nasal 16 GM SPRAY 2 SPRAY NOSTRIL-B (08:36)
[2023-11-26 20:45] VITALS: BP 128/79; PULSE 81; RESP 16; TEMP 36.6; O2SAT 98
[2023-11-26] MEDS: Melatonin 3 MG TABLET 6 MG PO (22:14)
[2023-11-26] MEDS: traZODone HCL 50 MG TABLET PO ×2 (22:14→23:00)
[2023-11-27] MEDS: hydrOXYzine HCL 25 MG TABLET PO ×3 (01:00→17:59)
[2023-11-27] MEDS: Ibuprofen 400 MG TABLET PO ×3 (05:47→21:25)
[2023-11-27] MEDS: Pseudoephedrine HCL 30 MG TABLET PO ×3 (05:47→21:24)
[2023-11-27 07:10] VITALS: BP 119/60; PULSE 71; RESP 12; TEMP 36.4; O2SAT 99
[2023-11-27 07:57] VITALS: BP 114/60; PULSE 71; RESP 18; TEMP 36.4; O2SAT 99
[2023-11-27] MEDS: Fluticasone Propionate Nasal 16 GM SPRAY 2 SPRAY NOSTRIL-B (08:12)
[2023-11-27] MEDS: Naltrexone HCl 50 MG TABLET PO (08:13)
[2023-11-27] MEDS: PARoxetine HCL 20 MG TABLET PO (08:13)
[2023-11-27] MEDS: Omeprazole 20 MG CAPSULE.DR PO (08:13)
[2023-11-27] MEDS: buPROPion HCl XL 150 MG TAB.ER.24H PO (08:13)
[2023-11-27] MEDS: Multivitamin TABLET 1 TAB PO (08:13)
[2023-11-27] MEDS: Thiamine HCL 100 MG TABLET PO (08:14)
[2023-11-27] MEDS: Nicotine 21 MG PATCH.TD24 TRANSDERMA (08:14)
[2023-11-27] MEDS: Folic Acid 1 MG TABLET PO (08:14)
--- NOTE | 2023-11-27 11:53 | HO.PSYCHPN ---
Subjective Subjective Date of Service: 11/27/23 Reason For Visit: Crisis Subjective Notes: Conditional Voluntary Interim History: Reviewed with Dr. Moss. Active on unit, social with peers. attending groups. Pt reports feeling good ; pt stated, I plan on leaving for [place] on . I'm going to stay in a hotel for a couple nights. I'll look for providers when I get down there . denies SI/HI/VH/AH. Pt to be discharged tomorrow. Will discharge with 1 week of medications, with refills d/t hx of overdoses on prescription medications. Medication Compliance: Yes Side effects from medications: No Attending Groups: Yes Review of Systems Constitutional: Reports as per HPI Eyes: Reports as per HPI Reports as per HPI Cardiovascular: Reports as per HPI Respiratory: Reports as per HPI Gastrointestinal: Reports as per HPI Genitourinary: Reports as per HPI Musculoskeletal: Reports as per HPI Skin/Breast: Reports as per HPI Reports as per HPI Psychiatric: Reports as per HPI Endocrine: Reports as per HPI Hematologic/Lymphatic: Reports as per HPI Allergic/Immunologic: Reports as per HPI Mental Status Exam Mental Status Exam Narrative: Pt is alert and oriented; behavior is cooperative, friendly and calm; dressed in casual attire; mood is described as good ; eye contact appropriate; Speech is normal rate, volume and prosody and not pressured; thought process is organized and goal directed; Thought content is on discharge; denies SI/HI/VH/AH. Diagnostics Vital Signs (24Hr): Vital Signs - 24 hr 11/26/23 20:45 11/27/23 07:10 11/27/23 07:57 Temperature 97.8 F 97.5 F 97.5 F Pulse Rate 81 71 71 Respiratory Rate 16 12 18 Blood Pressure 128/79 119/60 114/60 Pulse Oximetry 98 99 99 Oxygen Delivery Method Room Air Room Air Room Air BMI result Body Mass Index 30.8 Labs 11/23/23 08:21 Medications Medications Current Medications Acetaminophen (Acetaminophen 325 Mg Tablet) 650 mg PO Q6H PRN PRN Reason: Headache/Pain Mild Scale (1-3) Last Admin: 11/25/23 11:37 Dose: 650 mg Al Hydroxide/Mg Hydroxide (Magnesium Hydrox/Alum Hydrox 30 Ml Oral.Susp) 30 ml PO Q6H PRN PRN Reason: Heartburn/Nausea Bupropion HCl (Bupropion Hcl Xl 150 Mg Tab.Er.24h) 150 mg PO DAILY [facility] Last Admin: 11/27/23 08:13 Dose: 150 mg Calcium Carbonate (Calcium Carbonate 750 Mg Tab.Chew) 750 mg PO Q4H PRN PRN Reason: Heartburn Fluticasone Propionate (Fluticasone Propionate Nasal 16 G[address] [place]) 2 spray NOSTRIL-B DAILY [facility] Last Admin: 11/27/23 08:12 Dose: 2 spray Folic Acid (Folic Acid 1 Mg Tablet) 1 mg PO DAILY [facility] Last Admin: 11/27/23 08:14 Dose: 1 mg Hydroxyzine HCl (Hydroxyzine Hcl 25 Mg Tablet) 25 mg PO Q6H PRN PRN Reason: Anxiety Last Admin: 11/27/23 09:41 Dose: 25 mg Ibuprofen (Ibuprofen 400 Mg Tablet) 400 mg PO TIDWM PRN PRN Reason: Pain, Moderate(Pain Scale 4-6) Last Admin: 11/27/23 05:47 Dose: 400 mg Magnesium Hydroxide (Milk Of Magnesia 30 Ml Oral.Susp) 30 ml PO DAILY PRN PRN Reason: Constipation Melatonin (Melatonin 3 Mg Tablet) 6 mg PO BEDTIME PRN PRN Reason: Insomnia Last Admin: 11/26/23 22:14 Dose: 6 mg Multivitamins/Vitamin C (Multivitamin Tablet) 1 tab PO DAILY [facility] Last Admin: 11/27/23 08:13 Dose: 1 tab Naltrexone HCl (Naltrexone Hcl 50 Mg Tablet) 50 mg PO DAILY [facility] Last Admin: 11/27/23 08:13 Dose: 50 mg Nicotine (Nicotine 21 Mg Patch.Td24) 21 mg TRANSDERMA DAILY [facility] Last Admin: 11/27/23 08:14 Dose: 21 mg Nicotine Polacrilex (Nicotine Polacrilex 2 Mg Gum) 4 mg BUCCAL Q2H PRN PRN Reason: Nicotine Cravings Omeprazole (Omeprazole 20 Mg Capsule.Dr) 20 mg PO DAILY [facility] Last Admin: 11/27/23 08:13 Dose: 20 mg Ondansetron HCl (Ondansetron Odt 4 Mg Tab.Rapdis) 4 mg TRANSLINGU Q8H PRN PRN Reason: Nausea and Vomiting Paroxetine HCl (Paroxetine Hcl 20 Mg Tablet) 20 mg PO DAILY [facility] Last Admin: 11/27/23 08:13 Dose: 20 mg Pseudoephedrine HCl (Pseudoephedrine Hcl 30 Mg Tablet) 30 mg PO Q4H PRN PRN Reason: Congestion Last Admin: 11/27/23 05:47 Dose: 30 mg Thiamine HCl (Thiamine Hcl 100 Mg Tablet) 100 mg PO DAILY [facility] Last Admin: 11/27/23 08:14 Dose: 100 mg Trazodone HCl (Trazodone Hcl 50 Mg Tablet) 50 mg PO BEDTIME MRX1 PRN PRN Reason: Insomnia Last Admin: 11/26/23 23:00 Dose: 50 mg Allergies Allergies Allergy/AdvReac Type Severity Reaction Status Date / Time No Known Allergies Allergy Verified 09/07/23 20:44 Assessment & Plan Assessment & Plan (1) MDD (major depressive disorder), recurrent episode, severe: Status: Acute Code(s): F33.2 - Major depressive disorder, recurrent severe without psychotic features (2) Alcohol use disorder: Status: Acute Code(s): F10.90 - Alcohol use, unspecified, uncomplicated (3) Cocaine abuse: Status: Acute Code(s): F14.10 - Cocaine abuse, uncomplicated Plan Patient is a 43 year old male with hx of MDD, ETOH abuse and cocaine use d/o who overdosed on Paxil and Wellbutrin while drinking 25 nips of alcohol, used crack cocaine and THC d/t suicidal ideation secondary to increased depressive symptoms. Plan: CV 15 minute safety checks Continue home medications; continue to hold wellbutrin for now. Addiction consult Referral to outpatient therapist and prescriber Referral to substance abuse program or respite [facility] Q4H discharge planning 11/23/23continue treatment plan consider restarting wellbutrin continue to assess suicidal ideation given risk especially in light of pending divorce, change in living situation, job loss, and substance abuse 11/23: Active on unit, social with peers. attending groups. Pt reports feeling better than when I first came in ; continues to report some anxiety and depression. Pt reports he believes Naltrexone must be doing something because I'm not thinking about alcohol . denies SI/HI/VH/AH. continue current tx plan. 11/24: Active on unit, social with peers. attending groups. Pt reports feeling okay ; pt stated, when I leave here I'm going to say bye to a few people then drive down to [place]. My mom is expecting me. I don't have a desire to use. I'm not going to waste my money . pt denies SI/HI/VH/AH. pt requesting to be restarted on Wellbutrin d/t helping with his mood and energy . Start: Wellbutrin 150mg daily 11/25: Active on unit, social with peers. attending groups. Pt reports feeling better ; pt reports feeling ready to go on Tuesday . denies SI/HI/VH/AH. pt denies any side effects from restarting on Wellbutrin. continue current tx plan. 11/26: Active on unit, social with peers. attending groups. Pt reports feeling good ; pt stated, I plan on leaving for [place] on . I'm going to stay in a hotel for a couple nights. I'll look for providers when I get down there . denies SI/HI/VH/AH. Pt to be discharged tomorrow. Will discharge with 1 week of medications, with refills d/t hx of overdoses on prescription medications. Patient educated on: diagnosis, medication risk/benefits and therapeutic strategies Informed Consent: understands Reason for continued inpatient stay Substantial Risk for: stable for discharge Time Spent With Patient Time: Total time managing care of this patient today _20___ minutes.
[2023-11-27 21:30] VITALS: BP 115/71; PULSE 79; RESP 16; TEMP 36.7; O2SAT 99
[2023-11-27] MEDS: Melatonin 3 MG TABLET 6 MG PO (22:09)
[2023-11-27] MEDS: traZODone HCL 50 MG TABLET PO ×2 (22:09→23:27)
[2023-11-28] MEDS: hydrOXYzine HCL 25 MG TABLET PO (01:46)
[2023-11-28] MEDS: Ibuprofen 400 MG TABLET PO (05:23)
[2023-11-28] MEDS: Pseudoephedrine HCL 30 MG TABLET PO (05:23)
[2023-11-28 07:50] VITALS: BP 111/60; PULSE 76; RESP 18; TEMP 36.3; O2SAT 99
[2023-11-28] MEDS: Nicotine 21 MG PATCH.TD24 TRANSDERMA (08:38)
[2023-11-28] MEDS: Naltrexone HCl 50 MG TABLET PO (08:39)
[2023-11-28] MEDS: Omeprazole 20 MG CAPSULE.DR PO (08:39)
[2023-11-28] MEDS: Multivitamin TABLET 1 TAB PO (08:40)
[2023-11-28] MEDS: Folic Acid 1 MG TABLET PO (08:40)
[2023-11-28] MEDS: buPROPion HCl XL 150 MG TAB.ER.24H PO (08:40)
[2023-11-28] MEDS: Thiamine HCL 100 MG TABLET PO (08:40)
[2023-11-28] MEDS: PARoxetine HCL 20 MG TABLET PO (08:40)
[2023-11-28] MEDS: Fluticasone Propionate Nasal 16 GM SPRAY 2 SPRAY NOSTRIL-B (08:41)
--- NOTE | 2023-11-28 09:05 | PM.PSYDC ---
DS: Providers Provider Date of Service: 11/28/23 Date of admission: 11/21/23 17:37 Date of discharge: 11/28/23 Primary care physician: Unknown Physician Admitting clinician: Silvina Meza Attending physician on admission: Dany Moss Consults: 11/21/23 17:28 Addiction Medicine Routine Consulting Provider: Addiction Covering Reason for consultation: alcohol use disorder 11/21/23 18:47 Addiction Medicine Routine Consulting Provider: Addiction Covering Reason for consultation: ETOH , crack/cocaine abuse Attending physician on discharge: Dany Moss Discharging clinician: Silvina Meza DS: Diagnosis Discharge Diagnosis (1) MDD (major depressive disorder), recurrent episode, severe: Status: Acute (2) Alcohol use disorder: Status: Acute (3) Cocaine abuse: Status: Acute DS: Medications Discharge Medications Home Medications: Previous Rx's Medication Instructions Recorded bupropion HCl 150 mg 24 hr tablet, 150 mg PO DAILY 7 days #7 tabs 11/27/23 extended release naltrexone 50 mg tablet 50 mg PO DAILY 1 week #7 tabs 11/27/23 pantoprazole 20 mg tablet,delayed 20 mg PO DAILY 30 days #30 tabs 11/27/23 release paroxetine HCl 20 mg tablet 20 mg PO DAILY 7 days #7 tabs 11/27/23 Mental Status Exam Mental Status Exam Narrative: Pt is alert and oriented; behavior is cooperative, friendly and calm; dressed in casual attire; mood is described as good ; eye contact appropriate; Speech is normal rate, volume and prosody and not pressured; thought process is organized and goal directed; Thought content is on discharge; denies SI/HI/VH/AH. Data Data Completed and Pending Completed studies during hospitalization [Text1]: 11/23/23 08:21 Hold Purple Top SEE NOTE Sodium 140 Potassium 4.1 Chloride 106 Carbon Dioxide 25 Anion Gap 13 BUN 11 Creatinine 0.82 Estim Creat Clear Calc 137.1 Estimated GFR > 60 Fasting Glucose 132 H Calcium 9.3 D Total Bilirubin 0.3 AST 45 H ALT 73 H Alkaline Phosphatase 76 Total Protein 6.8 Albumin 3.8 Triglycerides 519 H Cholesterol 225 H LDL Cholesterol, Calc TNP HDL Cholesterol 49 DS: Summary Hospital Course Hospital Course: Patient is a 43 year old male with hx of MDD, ETOH abuse and cocaine use d/o who overdosed on Paxil and Wellbutrin while drinking 25 nips of alcohol, used crack cocaine and THC d/t suicidal ideation secondary to increased depressive symptoms. Per crisis report, pt was BIBA on 11/17/23 called by himself following an intentional ingestion of Paxil and Wellbutrin. He was drinking 25 nips, used crack cocaine and marijuana. He was medically cleared on 11/21/23 on medical floor and was referred to CARE team for inpatient admission. During admission assessment, pt presents calm and cooperative. Pt reports feeling depressed ; pt stated, I was drinking, smoking and using crack with my friend. I kept going and then I got suicidal. I feel depressed because I can't leave the state and move to [place] to be with my mom until I save enough money . Pt reports once he has saved enough money, he plans on moving in with his mother in [place]. He reports using $300 worth of crack prior to admission; pt stated, I do it every once in a while cause my friend is a dealer and it's easy to get . Pt reports he is interested in a substance abuse program in the area or respite. He would like help staying sober and a monomer recovery operator ; addiction consult placed. Pt does have a hx of 10 years sobriety. Pt reports he also does not have a psychiatric prescriber or therapist; which he would like referrals. 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 During hospital course, CV 15 minute safety checks Continue home medications; continue to hold wellbutrin for now. Addiction consult Referral to outpatient therapist and prescriber Referral to substance abuse program or respite [facility] Q4H discharge planning Active on unit, social with peers. attending groups. Pt reports feeling better than when I first came in ; continues to report some anxiety and depression. Pt reports he believes Naltrexone must be doing something because I'm not thinking about alcohol . denies SI/HI/VH/AH. continue current tx plan. Active on unit, social with peers. attending groups. Pt reports feeling okay ; pt stated, when I leave here I'm going to say bye to a few people then drive down to [place]. My mom is expecting me. I don't have a desire to use. I'm not going to waste my money . pt denies SI/HI/VH/AH. pt requesting to be restarted on Wellbutrin d/t helping with his mood and energy . Start: Wellbutrin 150mg daily Active on unit, social with peers. attending groups. Pt reports feeling better ; pt reports feeling ready to go on Tuesday . denies SI/HI/VH/AH. pt denies any side effects from restarting on Wellbutrin. continue current tx plan. Active on unit, social with peers. attending groups. Pt reports feeling good ; pt stated, I plan on leaving for [place] on . I'm going to stay in a hotel for a couple nights. I'll look for providers when I get down there . denies SI/HI/VH/AH. Will discharge with 1 week of medications, with refills d/t hx of overdoses on prescription medications. Time spent discussing smoking cessation with patient: 3 to 10 minutes Status at Discharge Cognitive/behavioral status at discharge: Patient was interviewed prior to discharge and found to be fully oriented and without any SI or HI. Patient has insight and demonstrates good judgment in terms of wanting to pursue treatment. Patient has a safety plan that includes presenting to the closest ER or calling 911 if feeling unsafe. Functional status at discharge: independent ambulation Overall status at discharge: patient is back to baseline Time Spent with Patient Time attestation: Total time managing care of this patient today _30___ minutes. Time spent: Less than 30 minutes Discharge Plan Discharge Anticipated Discharge Date/Time: 11/28/23 10:00 Patient Disposition: Home, Self-Care Discharge Diagnosis: MDD, ETOH abuse, cocaine use d/o Referrals: Physician,Unknown J [Primary Care Provider] - 12/14/23 8:30 am ([facility], [address] [place] [address]. APPT. CONFIMRED FOR DECEMBER 14, 2023 @ 8:30AM) Discharge Medications: New naltrexone 50 mg Tablet 50 mg PO DAILY 7 Days Qty: 7 1RF paroxetine HCl 20 mg Tablet 20 mg PO DAILY 7 Days Qty: 7 1RF bupropion HCl 150 mg Tablet Extended Release 24 Hr 150 mg PO DAILY 7 Days Qty: 7 1RF naltrexone 50 mg tablet 50 mg PO DAILY Qty: 7 1RF naloxone [Narcan] 4 mg/actuation spray,non-aerosol 4 mg intranasal Q2M PRN (Reason: opioid overdose) Qty: 2 0RF Rx Instructions: spray 1 dose into ONE nostril; alternate nostrils w each dose until help arrives Continued pantoprazole 20 mg Tablet,Delayed Release (Dr/Ec) 20 mg PO DAILY 30 Days Qty: 30 0RF Discontinued paroxetine HCl 20 mg tablet 20 mg PO DAILY Qty: 30 0RF Discharge Orders: Discharge Order (Routine); Ordered 11/28/23 Ordered By: Silvina Meza Diet: Regular diet Activity on Discharge: As tolerated Stand Alone Forms: Patient Portal Discharge page, Community Support Care Plan Goals: Maintain mood and safe behaviors Take medications as prescribed Continue to pursue sobriety Practice coping skills Continue with outpatient providers and reach out to them as needed Health Concerns: Mood stability and behaviors Sobriety Plan of Treatment: Follow up with your PCP, psychiatric provider and other outpatient providers regarding above concerns Take medications as prescribed Assessment: Patient was interviewed prior to discharge and found to be fully oriented and without any SI or HI. Patient has insight and demonstrates good judgment in terms of wanting to pursue treatment. Patient has a safety plan that includes presenting to the closest ER or calling 911 if feeling unsafe. Discharge Date/Time: 11/28/23 10:27
== END 2023-11-28 10:27 | disposition home or self-care (01) | DRG 751 ==
PROVIDERS: Admitting Provider Nurse Practitioner Acute Care; Responsible Provider Registered Nurse; Visit Provider Psychiatry & Neurology Psychiatry
DX: F33.2 Major depressive disorder, recurrent severe without psychotic features (principal); R45.851 Suicidal ideations; F14.10 Cocaine abuse, uncomplicated; F10.10 Alcohol abuse, uncomplicated; F17.210 Nicotine dependence, cigarettes, uncomplicated; Z59.02 Unsheltered homelessness; Z71.6 Tobacco abuse counseling; Z91.51 Personal history of suicidal behavior; Z79.899 Other long term (current) drug therapy
CPT/HCPCS: 36415; 80053; 80061

== ENCOUNTER → 2023-11-21 17:37 | Outpatient (BNV) | payer BC, SELFPAY | PROVIDERS: Admitting Provider Nurse Practitioner Acute Care; Visit Provider Registered Nurse | DX: F33.2 Major depressive disorder, recurrent severe without psychotic features (principal); F14.10 Cocaine abuse, uncomplicated; F10.90 Alcohol use, unspecified, uncomplicated | CPT/HCPCS: 90792; 99231; 99232; 99238 ==

== ENCOUNTER 2023-12-09 15:29 | Inpatient (IN) | payer SELFPAY ==
--- NOTE | 2023-12-09 14:30 | PM.EVENT ---
Documented by User: Jessica [email or web address] 12/09/23 14:33 Event Note Date of Service: 12/09/23 Event Note: Case review with MD prior to transfer. 43 yo male, hx MDD, AUD, relapsed since Jul 2023, intentionally took 5-6 Wellbutrin 150mg XL along with 15 drinks in a suicide attempt. Since admission there have been no medical complications, no EKG changes, no metabolic abnormalities. Phosphate replacement is initiated. Ativan has been used for detox and anxiety. Pt has also use Trazodone with success. He is alert, oriented, looking forward to psychiatric treatment. Time Spent With Patient Time: Total time managing care of this patient today ____ minutes. Documented by User: Dany Moss MD 12/10/23 21:15 Event Note Date of Service: 12/10/23
[2023-12-09 16:31] VITALS: BP 140/79; PULSE 77; RESP 19; TEMP 37.1; O2SAT 98
[2023-12-09] MEDS: Acetaminophen 325 MG TABLET 650 MG PO (16:36)
[2023-12-09] MEDS: hydrOXYzine HCL 25 MG TABLET PO (16:36)
[2023-12-09 17:05] VITALS: BMI 29.5
--- NOTE | 2023-12-09 18:37 | PC.ADMIT ---
Christophe Kelly, 43 y/o cisgendered male who transferred from [facility] medical floor ?to on a CV s/p intentional OD on Wellbutrin and alcohol intoxication on 12/06/23. He has hx of MDD, AUD, anxiety, daily canabis use, and reports using cocaine twice per month. He was sober from alcohol for 11 years but relapsed this past July and has been drinking daily since. He spent 30 days at [facility] rehab in [place] but reports it didn?t help. Recent stressors include asking for a? divorce, being unemployed, and living out of his car. Reports 2 previous SA by intentional OD on prescription medication and each time called for help. He was recently on M5 last month and subsequently DC'd.. His terminal makeup operator plan is to move to [place] where he hopes to get the support he needs. Skin check done and safety check performed. Denies current SI/HI/AVH. Pt oriented to unit, all admission paperwork signed. Mood is depressed and anxious, malodorous and disheveled in appearance. Presently ordered for 15 min safety checks. Addiction medicine consult placed, hospitalist consultation pending but donation worker Dr. Gretchen mg text/read. Main goal of admission he reports is to eventually sign a 3 day notice and move to [place].
[2023-12-09] MEDS: LORazepam 1 MG TABLET PO (21:16)
[2023-12-09] MEDS: traZODone HCL 50 MG TABLET PO ×2 (21:17→22:29)
[2023-12-09] MEDS: Melatonin 3 MG TABLET 6 MG PO (21:55)
[2023-12-09] MEDS: Sodium,Potassium Phosphates POWD.PACK 2 PACKET PO (21:55)
[2023-12-10] MEDS: Sodium,Potassium Phosphates POWD.PACK 2 PACKET PO ×6 (04:19→22:01)
[2023-12-10] MEDS: Magnesium Hydrox/Alum Hydrox 30 ML ORAL.SUSP PO ×2 (04:19→23:18)
[2023-12-10] MEDS: Acetaminophen 325 MG TABLET 650 MG PO ×2 (05:39→13:11)
[2023-12-10] MEDS: hydrOXYzine HCL 25 MG TABLET PO ×3 (05:39→19:20)
[2023-12-10] MEDS: Omeprazole 20 MG CAPSULE.DR PO (05:39)
[2023-12-10 07:25] LABS: Estimated Average Glucose 97 mg/dL
[2023-12-10 07:29] LABS: Cholesterol 203 mg/dL (<200); HDL Cholesterol 63 mg/dL (>40); LDL Cholesterol Calculated 89 mg/dL (<100); Triglycerides 256 mg/dL (<150)
[2023-12-10 07:44] LABS: Free T4 (Free Thyroxine) 0.94 ng/dL (0.71-1.85); Thyroid Stimulating Hormone 2.73 uIU/mL (0.32-4.0)
[2023-12-10 07:56] LABS: Folate 11.1 ng/mL (> or = 4.0); Vitamin B12 598 pg/mL (200-900)
[2023-12-10 08:00] VITALS: BP 110/74; PULSE 74; RESP 18; TEMP 36.6; O2SAT 98
[2023-12-10] MEDS: buPROPion HCl XL 150 MG TAB.ER.24H PO (08:23)
[2023-12-10] MEDS: Pyridoxine HCl (Vitamin B6) 50 MG TABLET PO (08:23)
[2023-12-10] MEDS: Thiamine HCL 100 MG TABLET PO (08:23)
[2023-12-10] MEDS: LORazepam 1 MG TABLET PO ×2 (08:24→18:09)
[2023-12-10] MEDS: PARoxetine HCL 20 MG TABLET PO (08:24)
[2023-12-10] MEDS: Naltrexone HCl 50 MG TABLET PO (08:24)
[2023-12-10] MEDS: Folic Acid 1 MG TABLET PO (08:24)
[2023-12-10] MEDS: Multivitamin TABLET 1 TAB PO (08:24)
[2023-12-10] MEDS: Nicotine 21 MG PATCH.TD24 TRANSDERMA (09:19)
[2023-12-10] MEDS: Nicotine Polacrilex Lozenge 4 MG LOZENGE BUCCAL ×4 (09:19→19:22)
[2023-12-10] MEDS: QUEtiapine Fumarate 25 MG TABLET PO ×3 (11:44→20:54)
--- NOTE | 2023-12-10 12:46 | HO.PSYADMNOT ---
HPI Date of Service: 12/10/23 Chief Complaint: Recurrent major depression, alcohol, cocaine use Sources of Information: patient interviewed, chart reviewed and crisis/core team assessment reviewed HPI Subjective Notes: Morris Warning, Conditional Voluntary and 3 Day Healthcare Proxy: No Guardianship: No Medical Problems Affecting Mental Status: No Narrative: 43 yo male, transfer from [facility], hx of depression, alcohol use disorder, cocaine use disorder, with hx of 10 years sobriety, relapse in Jul s/p Wellbutrin OD in a suicide attempt. Detoxed and medically cleared. TDN on admit Pt agrees to meet, can I leave today? I am moving to [place] to live with my mom, I have a 10K insurance settlement and will be getting more. [facility] told me I was on a 12 . They said I had to go . I don't want to stay. Reports the end of a relationship as main precipitant. Plans to return to mothers home, find work, a car and begin again. Discussed losses and plans. January 2023 Sternum Fx, February 2023 Father , Jul 2023 made a suicide attempt, Sep 2023 filed for divorce is in [place], she was pt's only support, no one to call I live in my car Past Psychiatric History: Pt does not have outpatient therapist or prescriber. [facility] 09/2023. Current admit is his third this year-did [facility] for 30 days hx of sober house. Medical Evaluation Reviewed: Yes [facility] Medical History (Updated 12/10/23 @ 22:20 by LARRY Bailey) GERD (gastroesophageal reflux disease) Alcohol use disorder Major depression Suicide attempt by multiple drug overdose Drug overdose Narrative: January 2023- Fx Sternum Family History: hx of alcoholism. Social History: Homeless; staying in his car. In process of getting a divorce. no children. 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 Born in [place]-attended [employer] schools, GED after leaving school at age 15, worked 3 jobs, got his license at 16, moved to [place] with sister, met first , moved to [place]-together 5 years, 8 months prior to divorce. Sx increased age [age]. 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 She made a suicide attempt Jul 2023, taking 42 sleeping pills. Pt moved in with a co-worker when she asked him to leave No children Substance History: 15 nips daily medical cannabis Trauma History: affirms Diagnostics Vital Signs (24Hr): Vital Signs - 24 hr 12/09/23 16:31 12/10/23 08:00 Temperature 98.7 F 97.8 F Pulse Rate 77 74 Respiratory Rate 19 18 Blood Pressure 140/79 H 110/74 Pulse Oximetry 98 98 Oxygen Delivery Method Room Air Room Air BMI result Body Mass Index 29.5 Labs Labs: Laboratory Results - last 48 hr 12/10/23 06:51 Estimat Average Glucose 97 Hemoglobin A1c % 5.0 Magnesium 2.0 Triglycerides 256 H Cholesterol 203 H LDL Cholesterol, Calc 89 HDL Cholesterol 63 Vitamin B12 598 Folate 11.1 TSH 2.73 Free T4 0.94 Meds/Allergies Meds Home Medications ?Medication ?Instructions ?Recorded ?Confirmed ?Type Potassium Phosphates 2 packet PO Q4H 12/09/23 12/09/23 History folic acid 1 mg tablet 1 mg PO DAILY 12/09/23 12/09/23 History lorazepam 1 mg tablet 1 mg PO BID PRN Anxiety 12/09/23 12/09/23 History multivitamin 1 tab PO DAILY 12/09/23 12/09/23 History paroxetine HCl 20 mg tablet 40 mg PO DAILY 12/09/23 History pyridoxine (vitamin B6) 50 mg 50 mg PO DAILY 12/09/23 12/09/23 History capsule thiamine HCl (vitamin B1) 100 mg 100 mg PO DAILY 12/09/23 12/09/23 History tablet trazodone 50 mg tablet 50 mg PO BEDTIME 12/09/23 12/09/23 History Allergies Allergies Allergy/AdvReac Type Severity Reaction Status Date / Time No Known Allergies Allergy Verified 09/07/23 20:44 Mental Status Exam Mental Status Exam Patient Appearance: Appropriate Patient Orientation: Person, Place, Time and Situation Level of Consciousness: Alert Patient Behavior: Appropriate and Good Eye Contact Mood Description: Depressed, Hostile, Anxious and Apprehensive Affect Description: Flat Patient Cognition Impaired: No Ability to Follow Directions: Good Speech Pattern: Spontaneous Speech Memory Description: Intact Hallucinations: None Perceptual Disturbances: Depersonalization and Derealization Thought Process: Goal Oriented Thought Content: positive for Goal Oriented Depressive Symptoms: Thoughts of /Suicide (denies) Judgement: Fair Assessment & Plan Assessment & Plan (1) MDD (major depressive disorder), recurrent episode, severe: Status: Acute Code(s): F33.2 - Major depressive disorder, recurrent severe without psychotic features (2) Cocaine abuse: Status: Acute Code(s): F14.10 - Cocaine abuse, uncomplicated (3) Alcohol use disorder: Status: Acute Code(s): F10.90 - Alcohol use, unspecified, uncomplicated Plan 43 yo male, hx of major depression, alcohol, cocaine use disorder, s/p overdose of Wellbutrin in the context of the loss of his marriage in Sep 2023, homelessness and no support system locally. Plans a return to [place] to live with his mother. Plan: Collateral contact TDN 12/13 Seroquel trial Encourage milieu Patient educated on: medication risk/benefits Informed Consent: understands Reason for continued inpatient stay Substantial Risk for: harm to self and rapid decompensation Statement Statement: I have reviewed the history and physical and performed a pertinent examination on my patient. No changes have occurred unless specified. If the History and Physical was not performed prior to admission, the Hospitalist's service will be consulted for completing the admission physical. Time Spent With Patient Time: Total time managing care of this patient today ____ minutes.
--- NOTE | 2023-12-10 13:58 | P.CONHOSP_ITS ---
History of Present Illness Data of Consult Service Date: 12/10/23 Primary Care Provider: Unknown Physician HPI Reason for consult: Admission H&P Pt is a 43-year-old male with a PMH significant for?alcohol use disorder, polysubstance use disorder, GERD, and MDD who is admitted to [facility] unit for increasing depression with suicide attempt by overdosing on bupropion in the context of heavy alcohol use. Patient previously had been sober for 11 years before relapsing in July 2023. Since then has been drinking approximately 15+ nips of vodka per day. Has been experiencing increasing depression as he is going through divorce with his . Medical consult for admission H&P. ?Pt was treated at [facility] for alcohol withdrawal, and pt states he no longer feels like he is going through withdrawal. Last drink Tuesday morning/afternoon on 12/07/2023. Currently smokes one pack of cigarettes a day. Last saw PCP in January or February last year. Patient reports feeling medically well overall, and denies any acute medical complaints at this time. Denies chest pain/pressure, palpitations. No shortness of breath. Denies fever, chills, nausea, vomiting, abdominal pain. Denies increased anxiety. No diaphoresis. Denies auditory or visual hallucinations. Review of Systems Review of Systems: Patient has no acute medical concerns or complaints at this time [facility] Medical History (Updated 12/10/23 @ 22:20 by LARRY Bailey) GERD (gastroesophageal reflux disease) Alcohol use disorder Major depression Suicide attempt by multiple drug overdose Drug overdose Social History Household Members: None Housing: Homeless Housing Other:: In Car Do you presently have visiting nurse or other home services: No Unable to assess alcohol history related to: Unable to respond Alcohol intake: current Alcohol intake frequency: 3 or more drinks per day Comment: 1:1 sitter Patient Tobacco Use Status: Current everyday Tobacco user Tobacco use type: Cigarette Cigarette Packs Per Day: 1 Cigarettes Per Day: 20.0 Years Smoked: 18 Smoked in Last 30 Days: Yes e-Cigarette/Vaping Use: Never Used Patient Interested in Nicotine Replacement: Yes Patient Given Instructions on How to Stop Smoking: No Second Hand Smoke Exposure: No Use of substances other than those prescribed or required for medical reasons: Yes Substance Use Type: Crack/Cocaine and Marijuana Substance Use Type Other:: cocaine use twice per month Substance Use Frequency: Occasionally Last Used Substance: Just Prior to Admission Last Used Substance Other:: Marijuana- smokes daily Currently Displaying Signs/Symptoms of Drug Intoxication Withdrawal: No Any prior treatment program specific to substance use: Yes (Previously admitted for [facility] to [facility]) Have you been hit, kicked, punched, or otherwise hurt by someone within the past year? If so, by whom?: No Do you feel safe in your current relationship?: No Current Relationship Is there a partner from a previous relationship who is making you feel unsafe now?: No Are you made to feel afraid or neglected: No Spiritual Healthcare Practices: None [facility] Practices: None Cultural Healthcare Practices: none Advance Directives: No Advance Directives Information Provided: No Do you have thoughts of harming others: None Do you have a plan to hurt others: No Plan Recently lost weight without trying: Unsure How much weight loss: Unsure Eating poorly because of decreased appetite: No Nutrition screen score: 4 Nutrition Risks: No Nutritional Risk Poor oral hygiene: Yes service: No Sexual orientation: Straight/Heterosexual Meds Allergies Allergy/AdvReac Type Severity Reaction Status Date / Time No Known Allergies Allergy Verified 09/07/23 20:44 Active Medications: Current Medications Acetaminophen (Acetaminophen 325 Mg Tablet) 650 mg PO Q6H PRN PRN Reason: Headache/Pain Mild Scale (1-3) Last Admin: 12/10/23 13:11 Dose: 650 mg Al Hydroxide/Mg Hydroxide (Magnesium Hydrox/Alum Hydrox 30 Ml Oral.Susp) 30 ml PO Q6H PRN PRN Reason: Heartburn/Nausea Last Admin: 12/10/23 04:19 Dose: 30 ml Bupropion HCl (Bupropion Hcl Xl 150 Mg Tab.Er.24h) 150 mg PO DAILY SEVEN Last Admin: 12/10/23 08:23 Dose: 150 mg Folic Acid (Folic Acid 1 Mg Tablet) 1 mg PO DAILY SEVEN Last Admin: 12/10/23 08:24 Dose: 1 mg Hydroxyzine HCl (Hydroxyzine Hcl 25 Mg Tablet) 25 mg PO Q6H PRN PRN Reason: Anxiety Last Admin: 12/10/23 13:11 Dose: 25 mg Lorazepam (Lorazepam 1 Mg Tablet) 1 mg PO BID PRN PRN Reason: anxiety Last Admin: 12/10/23 08:24 Dose: 1 mg Magnesium Hydroxide (Milk Of Magnesia 30 Ml Oral.Susp) 30 ml PO DAILY PRN PRN Reason: Constipation Melatonin (Melatonin 3 Mg Tablet) 6 mg PO BEDTIME [facility] Last Admin: 12/09/23 21:55 Dose: 6 mg Multivitamins/Vitamin C (Multivitamin Tablet) 1 tab PO DAILY [facility] Last Admin: 12/10/23 08:24 Dose: 1 tab Naltrexone HCl (Naltrexone Hcl 50 Mg Tablet) 50 mg PO DAILY [facility] Last Admin: 12/10/23 08:24 Dose: 50 mg Nicotine (Nicotine 21 Mg Patch.Td24) 21 mg TRANSDERMA DAILY [facility] Last Admin: 12/10/23 09:19 Dose: 21 mg Nicotine Polacrilex (Nicotine Polacrilex Lozenge 4 Mg Lozenge) 4 mg BUCCAL Q2H PRN PRN Reason: Nicotine Cravings Last Admin: 12/10/23 11:29 Dose: 4 mg Omeprazole (Omeprazole 20 Mg Capsule.Dr) 20 mg PO DAILY@0630 [facility] Last Admin: 12/10/23 05:39 Dose: 20 mg Paroxetine HCl (Paroxetine Hcl 20 Mg Tablet) 20 mg PO DAILY [facility] Last Admin: 12/10/23 08:24 Dose: 20 mg Potassium Phos/Sodium Phos (Sodium,Potassium Phosphates Powd.Pack) 2 packet PO Q4H [facility] Stop: 12/11/23 15:01 Last Admin: 12/10/23 11:16 Dose: 2 packet Pyridoxine HCl (Pyridoxine Hcl (Vitamin B6) 50 Mg Tablet) 50 mg PO DAILY [facility] Last Admin: 12/10/23 08:23 Dose: 50 mg Quetiapine Fumarate (Quetiapine Fumarate 25 Mg Tablet) 25 mg PO QID PRN PRN Reason: anxiety, agitation Last Admin: 12/10/23 11:44 Dose: 25 mg Thiamine HCl (Thiamine Hcl 100 Mg Tablet) 100 mg PO DAILY [facility] Last Admin: 12/10/23 08:23 Dose: 100 mg Trazodone HCl (Trazodone Hcl 50 Mg Tablet) 50 mg PO BEDTIME MRX1 PRN PRN Reason: Insomnia Last Admin: 12/09/23 22:29 Dose: 50 mg Home Medications ?Medication ?Instructions ?Recorded ?Confirmed ?Last Taken ?Type Potassium Phosphates 2 packet PO Q4H 12/09/23 12/09/23 Unknown History folic acid 1 mg tablet 1 mg PO DAILY 12/09/23 12/09/23 Unknown History lorazepam 1 mg tablet 1 mg PO BID PRN Anxiety 12/09/23 12/09/23 Unknown History multivitamin 1 tab PO DAILY 12/09/23 12/09/23 Unknown History paroxetine HCl 20 mg tablet 40 mg PO DAILY 12/09/23 Unknown History pyridoxine (vitamin B6) 50 mg 50 mg PO DAILY 12/09/23 12/09/23 Unknown History capsule thiamine HCl (vitamin B1) 100 mg 100 mg PO DAILY 12/09/23 12/09/23 Unknown History tablet trazodone 50 mg tablet 50 mg PO BEDTIME 12/09/23 12/09/23 Unknown History Physical Exam Vital Signs and Narrative: Vital Signs: Last Vital Signs Temp 97.8 F 12/10/23 08:00 Pulse 74 12/10/23 08:00 Resp 18 12/10/23 08:00 BP 110/74 12/10/23 08:00 Pulse Ox 98 12/10/23 08:00 O2 Del Method Room Air 12/10/23 08:00 BMI result Body Mass Index 29.5 General: AOx3, no acute distress Resp: CTA bilaterally CVS: S1, S2, RRR GI: +BS, NT, no distention Skin: Warm, dry Neuro: Cranial nerves II-XII grossly intact bilaterally. Motor grossly intact bilaterally Extremities: No edema Psych: Appropriate affect Results Labs Labs: Laboratory Results - last 24 hr 12/10/23 06:51 Estimat Average Glucose 97 Hemoglobin A1c % 5.0 Magnesium 2.0 Triglycerides 256 H Cholesterol 203 H LDL Cholesterol, Calc 89 HDL Cholesterol 63 Vitamin B12 598 Folate 11.1 TSH 2.73 Free T4 0.94 Assessment and Plan (1) Medical clearance for psychiatric admission: Status: Acute Plan Pt is a 43-year-old male with a PMH significant for?alcohol use disorder, polysubstance use disorder, GERD, and MDD who is admitted to [facility] psychiat[facility] unit for increasing depression with suicide attempt by overdosing on bupropion in the context of heavy alcohol use. Patient previously had been sober for 11 years before relapsing in July 2023. Since then has been drinking approximately 15+ nips of vodka per day. Has been experiencing increasing depression as he is going through divorce with his . Medical consult for admission H&P. Mood disorder Plan as per psychiatry Alcohol use disorder Ativan prn for withdrawal symptoms Continue thiamine, paroxetine, folic acid Plan as per psychiatry GERD Cotinue ppi Thank you for allowing us to participate in the care of this patient. Signing off at this time. Please re-consult if any acute complaints or issues arise.
[2023-12-10 16:48] VITALS: BP 117/67; PULSE 76; RESP 16; TEMP 36.9; O2SAT 98
[2023-12-10] MEDS: Melatonin 3 MG TABLET 6 MG PO (20:54)
[2023-12-10] MEDS: traZODone HCL 50 MG TABLET PO ×2 (20:54→22:01)
[2023-12-11] MEDS: Ondansetron ODT 4 MG TAB.RAPDIS TRANSLINGU (00:53)
--- NOTE | 2023-12-11 05:57 | HO.PSYCHPN ---
Subjective Subjective Date of Service: 12/11/23 Reason For Visit: Recurrent major depression, alcohol, cocaine use Subjective Notes: 3 Day Healthcare Proxy: No Guardianship: No Interim History: Pt seen, discussed with team, plan of care reviewed. Pt with episode of vomiting last evening, he reports due to GERD Tolerating Seroquel trial and finds it helpful, asks to continue. Medication Compliance: Yes Side effects from medications: No Attending Groups: Intermittent Review of Systems Acute medical concerns: No Medical Review of Systems: unchanged Review of Systems Review of Systems Yes all other systems are reviewed and are negative Mental Status Exam Mental Status Exam Patient Appearance: Appropriate Patient Orientation: Person, Place, Time and Situation Level of Consciousness: Alert Patient Behavior: Appropriate and Good Eye Contact Mood Description: Depressed, Hostile, Anxious and Apprehensive Affect Description: Flat Patient Cognition Impaired: No Ability to Follow Directions: Good Speech Pattern: Spontaneous Speech Memory Description: Intact Hallucinations: None Perceptual Disturbances: Depersonalization and Derealization Thought Process: Goal Oriented Thought Content: positive for Goal Oriented Depressive Symptoms: Thoughts of /Suicide (denies) Judgement: Fair Diagnostics Vital Signs (24Hr): Vital Signs - 24 hr 12/10/23 08:00 12/10/23 16:48 Temperature 97.8 F 98.4 F Pulse Rate 74 76 Respiratory Rate 18 16 Blood Pressure 110/74 117/67 Pulse Oximetry 98 98 Oxygen Delivery Method Room Air Room Air BMI result Body Mass Index 29.5 Labs Labs: Laboratory Results - last 48 hr 12/10/23 06:51 Estimat Average Glucose 97 Hemoglobin A1c % 5.0 Magnesium 2.0 Triglycerides 256 H Cholesterol 203 H LDL Cholesterol, Calc 89 HDL Cholesterol 63 Vitamin B12 598 Folate 11.1 TSH 2.73 Free T4 0.94 Medications Medications Current Medications Acetaminophen (Acetaminophen 325 Mg Tablet) 650 mg PO Q6H PRN PRN Reason: Headache/Pain Mild Scale (1-3) Last Admin: 12/10/23 13:11 Dose: 650 mg Al Hydroxide/Mg Hydroxide (Magnesium Hydrox/Alum Hydrox 30 Ml Oral.Susp) 30 ml PO Q6H PRN PRN Reason: Heartburn/Nausea Last Admin: 12/10/23 23:18 Dose: 30 ml Bupropion HCl (Bupropion Hcl Xl 150 Mg Tab.Er.24h) 150 mg PO DAILY SEVEN Last Admin: 12/10/23 08:23 Dose: 150 mg Folic Acid (Folic Acid 1 Mg Tablet) 1 mg PO DAILY [facility] Last Admin: 12/10/23 08:24 Dose: 1 mg Hydroxyzine HCl (Hydroxyzine Hcl 25 Mg Tablet) 25 mg PO Q6H PRN PRN Reason: Anxiety Last Admin: 12/10/23 19:20 Dose: 25 mg Lorazepam (Lorazepam 1 Mg Tablet) 1 mg PO BID PRN PRN Reason: anxiety Last Admin: 12/10/23 18:09 Dose: 1 mg Magnesium Hydroxide (Milk Of Magnesia 30 Ml Oral.Susp) 30 ml PO DAILY PRN PRN Reason: Constipation Melatonin (Melatonin 3 Mg Tablet) 6 mg PO BEDTIME [facility] Last Admin: 12/10/23 20:54 Dose: 6 mg Multivitamins/Vitamin C (Multivitamin Tablet) 1 tab PO DAILY [facility] Last Admin: 12/10/23 08:24 Dose: 1 tab Naltrexone HCl (Naltrexone Hcl 50 Mg Tablet) 50 mg PO DAILY [facility] Last Admin: 12/10/23 08:24 Dose: 50 mg Nicotine (Nicotine 21 Mg Patch.Td24) 21 mg TRANSDERMA DAILY [facility] Last Admin: 12/10/23 09:19 Dose: 21 mg Nicotine Polacrilex (Nicotine Polacrilex Lozenge 4 Mg Lozenge) 4 mg BUCCAL Q2H PRN PRN Reason: Nicotine Cravings Last Admin: 12/10/23 19:22 Dose: 4 mg Omeprazole (Omeprazole 20 Mg Capsule.Dr) 20 mg PO DAILY@0630 [facility] Last Admin: 12/10/23 05:39 Dose: 20 mg Ondansetron HCl (Ondansetron Odt 4 Mg Tab.Rapdis) 4 mg TRANSLINGU Q8H PRN PRN Reason: Nausea and Vomiting Last Admin: 12/11/23 00:53 Dose: 4 mg Paroxetine HCl (Paroxetine Hcl 20 Mg Tablet) 20 mg PO DAILY [facility] Last Admin: 12/10/23 08:24 Dose: 20 mg Potassium Phos/Sodium Phos (Sodium,Potassium Phosphates Powd.Pack) 2 packet PO Q4H [facility] Stop: 12/11/23 15:01 Last Admin: 12/10/23 22:01 Dose: 2 packet Pyridoxine HCl (Pyridoxine Hcl (Vitamin B6) 50 Mg Tablet) 50 mg PO DAILY [facility] Last Admin: 12/10/23 08:23 Dose: 50 mg Quetiapine Fumarate (Quetiapine Fumarate 25 Mg Tablet) 25 mg PO QID PRN PRN Reason: anxiety, agitation Last Admin: 12/10/23 20:54 Dose: 25 mg Thiamine HCl (Thiamine Hcl 100 Mg Tablet) 100 mg PO DAILY SEVEN Last Admin: 12/10/23 08:23 Dose: 100 mg Trazodone HCl (Trazodone Hcl 50 Mg Tablet) 50 mg PO BEDTIME MRX1 PRN PRN Reason: Insomnia Last Admin: 12/10/23 22:01 Dose: 50 mg Allergies Allergies Allergy/AdvReac Type Severity Reaction Status Date / Time No Known Allergies Allergy Verified 09/07/23 20:44 Assessment & Plan Assessment & Plan (1) MDD (major depressive disorder), recurrent episode, severe: Status: Acute Code(s): F33.2 - Major depressive disorder, recurrent severe without psychotic features Assessment and Plan: 12/11/23- Continue Seroquel trial Encourage milieu involvement. (2) Cocaine abuse: Status: Acute Code(s): F14.10 - Cocaine abuse, uncomplicated (3) Crack cocaine use: Status: Acute Code(s): F14.90 - Cocaine use, unspecified, uncomplicated Plan Pt is a 43-year-old male with a PMH significant for?alcohol use disorder, polysubstance use disorder, GERD, and MDD who is admitted to [facility] unit for increasing depression with suicide attempt by overdosing on bupropion in the context of heavy alcohol use. Patient previously had been sober for 11 years before relapsing in July 2023. Since then has been drinking approximately 15+ nips of vodka per day. Has been experiencing increasing depression as he is going through divorce with his . Medical consult for admission H&P. Mood disorder Plan as per psychiatry Alcohol use disorder Ativan prn for withdrawal symptoms Continue thiamine, paroxetine, folic acid Plan as per psychiatry GERD Cotinue ppi Thank you for allowing us to participate in the care of this patient. Signing off at this time. Please re-consult if any acute complaints or issues arise. Reason for continued inpatient stay Substantial Risk for: harm to self and rapid decompensation Time Spent With Patient Time: Total time managing care of this patient today ____ minutes.
[2023-12-11] MEDS: Omeprazole 20 MG CAPSULE.DR PO (06:29)
[2023-12-11] MEDS: Acetaminophen 325 MG TABLET 650 MG PO ×3 (06:50→20:11)
[2023-12-11] MEDS: Sodium,Potassium Phosphates POWD.PACK 2 PACKET PO ×3 (06:50→14:50)
[2023-12-11] MEDS: hydrOXYzine HCL 25 MG TABLET PO ×2 (06:51→14:56)
[2023-12-11 07:50] VITALS: BP 98/56; PULSE 73; RESP 18; TEMP 36.6; O2SAT 98
[2023-12-11] MEDS: buPROPion HCl XL 150 MG TAB.ER.24H PO (08:03)
[2023-12-11] MEDS: Folic Acid 1 MG TABLET PO (08:03)
[2023-12-11] MEDS: PARoxetine HCL 20 MG TABLET PO (08:03)
[2023-12-11] MEDS: Pyridoxine HCl (Vitamin B6) 50 MG TABLET PO (08:03)
[2023-12-11] MEDS: Multivitamin TABLET 1 TAB PO (08:03)
[2023-12-11] MEDS: Nicotine 21 MG PATCH.TD24 TRANSDERMA (08:03)
[2023-12-11] MEDS: Thiamine HCL 100 MG TABLET PO (08:03)
[2023-12-11] MEDS: Naltrexone HCl 50 MG TABLET PO (08:03)
[2023-12-11] MEDS: QUEtiapine Fumarate 25 MG TABLET PO ×4 (08:43→21:37)
[2023-12-11] MEDS: Nicotine Polacrilex Lozenge 4 MG LOZENGE BUCCAL ×5 (08:43→21:20)
[2023-12-11] MEDS: LORazepam 1 MG TABLET PO ×2 (10:01→17:57)
--- NOTE | 2023-12-11 14:58 | MHC.RECOVRN ---
Met with pt in [id number] consult placed to Addiction Medicine for AUD.? Chart review completed and received report from floor nurse Mouna. [place] [facility] [place] to on a CV ofr intentional OD on Wellbutrin and alcohol intoxication on 12/06/23.? Pt admitted for psych stabilization. Upon assessment pt is in common area awake and alert.? He agrees to go to treatment room to meet.? Pt reports that he detox[place] [facility] and does not have any further W/D sx.? None observed. Pt reports he started drinking approximately 25 years ago.? At that time it was not ?as much? and he would drink beer and hard liquor.? He got sober approx. 10.5 years ago and maintained sobriety until last July.? He returned to use at that time due to life stressors and was drinking up to 15 nips a day.? He is currently on Naltrexone and reports that this medication is effective.? For his recovery plan pt plans on continuing the Naltrexone and attending outpatient therapy.? He declined any resources in this area as he is going to his Mom?s in [place] once he D/C.? No further follow up needed at this time. T/W provided report to pt?s nurse Freire and ACS team T/W available PRN
[2023-12-11 16:57] VITALS: BP 131/74; PULSE 74; RESP 18; TEMP 37; O2SAT 98
[2023-12-11] MEDS: traZODone HCL 50 MG TABLET PO ×2 (21:37→22:34)
[2023-12-11] MEDS: Melatonin 3 MG TABLET 6 MG PO (21:37)
[2023-12-12] MEDS: Omeprazole 20 MG CAPSULE.DR PO (05:40)
[2023-12-12] MEDS: hydrOXYzine HCL 25 MG TABLET PO ×3 (05:40→23:50)
[2023-12-12 08:00] VITALS: BP 111/60; PULSE 79; RESP 17; TEMP 36.5; O2SAT 99
[2023-12-12] MEDS: Nicotine 21 MG PATCH.TD24 TRANSDERMA (09:29)
[2023-12-12] MEDS: Pyridoxine HCl (Vitamin B6) 50 MG TABLET PO (09:30)
[2023-12-12] MEDS: Acetaminophen 325 MG TABLET 650 MG PO ×2 (09:30→19:33)
[2023-12-12] MEDS: Multivitamin TABLET 1 TAB PO (09:31)
[2023-12-12] MEDS: Thiamine HCL 100 MG TABLET PO (09:31)
[2023-12-12] MEDS: Folic Acid 1 MG TABLET PO (09:31)
[2023-12-12] MEDS: Naltrexone HCl 50 MG TABLET PO (09:31)
[2023-12-12] MEDS: PARoxetine HCL 20 MG TABLET PO (09:31)
[2023-12-12] MEDS: QUEtiapine Fumarate 25 MG TABLET PO ×4 (09:31→21:48)
[2023-12-12] MEDS: buPROPion HCl XL 150 MG TAB.ER.24H PO (09:31)
[2023-12-12] MEDS: Nicotine Polacrilex Lozenge 4 MG LOZENGE BUCCAL ×4 (10:55→19:33)
[2023-12-12] MEDS: LORazepam 1 MG TABLET PO ×2 (10:55→18:21)
--- NOTE | 2023-12-12 14:28 | HO.PSYCHPN ---
Subjective Subjective Date of Service: 12/12/23 Reason For Visit: Recurrent major depression, alcohol, cocaine use Subjective Notes: 3 Day Healthcare Proxy: No Guardianship: No Medical Problems Affecting Mental Status: No Interim History: Pt plans discharge for 12/12 on a three day notice. He denies SI, plan or intent and reports he is looking forward to a return to [place] to mother's home. He asks for meds to be sent to [facility] and declines referrals as his mother has some ideas in [place] for future treatment team members. Medication Compliance: Yes Side effects from medications: No Attending Groups: Intermittent Review of Systems Acute medical concerns: No Medical Review of Systems: unchanged Review of Systems Review of Systems Yes all other systems are reviewed and are negative Mental Status Exam Mental Status Exam Patient Appearance: Appropriate Patient Orientation: Person, Place, Time and Situation Level of Consciousness: Alert Patient Behavior: Appropriate and Good Eye Contact Mood Description: Appropriate Affect Description: Appropriate Patient Cognition Impaired: No Ability to Follow Directions: Good Speech Pattern: Spontaneous Speech Memory Description: Intact Hallucinations: None Thought Process: Goal Oriented Thought Content: positive for Goal Oriented Judgement: Good Diagnostics Vital Signs (24Hr): Vital Signs - 24 hr 12/11/23 16:57 12/12/23 08:00 Temperature 98.6 F 97.7 F Pulse Rate 74 79 Respiratory Rate 18 17 Blood Pressure 131/74 111/60 Pulse Oximetry 98 99 Oxygen Delivery Method Room Air Room Air BMI result Body Mass Index 29.5 Medications Medications Current Medications Acetaminophen (Acetaminophen 325 Mg Tablet) 650 mg PO Q6H PRN PRN Reason: Headache/Pain Mild Scale (1-3) Last Admin: 12/12/23 09:30 Dose: 650 mg Al Hydroxide/Mg Hydroxide (Magnesium Hydrox/Alum Hydrox 30 Ml Oral.Susp) 30 ml PO Q6H PRN PRN Reason: Heartburn/Nausea Last Admin: 12/10/23 23:18 Dose: 30 ml Bupropion HCl (Bupropion Hcl Xl 150 Mg Tab.Er.24h) 150 mg PO DAILY SEVEN Last Admin: 12/12/23 09:31 Dose: 150 mg Folic Acid (Folic Acid 1 Mg Tablet) 1 mg PO DAILY SEVEN Last Admin: 12/12/23 09:31 Dose: 1 mg Hydroxyzine HCl (Hydroxyzine Hcl 25 Mg Tablet) 25 mg PO Q6H PRN PRN Reason: Anxiety Last Admin: 12/12/23 12:00 Dose: 25 mg Lorazepam (Lorazepam 1 Mg Tablet) 1 mg PO BID PRN PRN Reason: anxiety Last Admin: 12/12/23 10:55 Dose: 1 mg Magnesium Hydroxide (Milk Of Magnesia 30 Ml Oral.Susp) 30 ml PO DAILY PRN PRN Reason: Constipation Melatonin (Melatonin 3 Mg Tablet) 6 mg PO BEDTIME [facility] Last Admin: 12/11/23 21:37 Dose: 6 mg Multivitamins/Vitamin C (Multivitamin Tablet) 1 tab PO DAILY [facility] Last Admin: 12/12/23 09:31 Dose: 1 tab Naltrexone HCl (Naltrexone Hcl 50 Mg Tablet) 50 mg PO DAILY [facility] Last Admin: 12/12/23 09:31 Dose: 50 mg Nicotine (Nicotine 21 Mg Patch.Td24) 21 mg TRANSDERMA DAILY [facility] Last Admin: 12/12/23 09:29 Dose: 21 mg Nicotine Polacrilex (Nicotine Polacrilex Lozenge 4 Mg Lozenge) 4 mg BUCCAL Q2H PRN PRN Reason: Nicotine Cravings Last Admin: 12/12/23 13:28 Dose: 4 mg Omeprazole (Omeprazole 20 Mg Capsule.Dr) 20 mg PO DAILY@0630 [facility] Last Admin: 12/12/23 05:40 Dose: 20 mg Ondansetron HCl (Ondansetron Odt 4 Mg Tab.Rapdis) 4 mg TRANSLINGU Q8H PRN PRN Reason: Nausea and Vomiting Last Admin: 12/11/23 00:53 Dose: 4 mg Paroxetine HCl (Paroxetine Hcl 20 Mg Tablet) 20 mg PO DAILY [facility] Last Admin: 12/12/23 09:31 Dose: 20 mg Pyridoxine HCl (Pyridoxine Hcl (Vitamin B6) 50 Mg Tablet) 50 mg PO DAILY [facility] Last Admin: 12/12/23 09:30 Dose: 50 mg Quetiapine Fumarate (Quetiapine Fumarate 25 Mg Tablet) 25 mg PO QID PRN PRN Reason: anxiety, agitation Last Admin: 12/12/23 13:28 Dose: 25 mg Thiamine HCl (Thiamine Hcl 100 Mg Tablet) 100 mg PO DAILY [facility] Last Admin: 12/12/23 09:31 Dose: 100 mg Trazodone HCl (Trazodone Hcl 50 Mg Tablet) 50 mg PO BEDTIME MRX1 PRN PRN Reason: Insomnia Last Admin: 12/11/23 22:34 Dose: 50 mg Allergies Allergies Allergy/AdvReac Type Severity Reaction Status Date / Time No Known Allergies Allergy Verified 09/07/23 20:44 Assessment & Plan Assessment & Plan (1) MDD (major depressive disorder), recurrent episode, severe: Status: Acute Code(s): F33.2 - Major depressive disorder, recurrent severe without psychotic features Assessment and Plan: 12/11/23- Continue Seroquel trial Encourage milieu involvement. 12/12/23- Discharge on 12/12 on TDN. Currently no SI, HI, lonnie, psychosis (2) Cocaine abuse: Status: Acute Code(s): F14.10 - Cocaine abuse, uncomplicated (3) Crack cocaine use: Status: Acute Code(s): F14.90 - Cocaine use, unspecified, uncomplicated Plan Pt is a 43-year-old male with a PMH significant for?alcohol use disorder, polysubstance use disorder, GERD, and MDD who is admitted to [facility] unit for increasing depression with suicide attempt by overdosing on bupropion in the context of heavy alcohol use. Patient previously had been sober for 11 years before relapsing in July 2023. Since then has been drinking approximately 15+ nips of vodka per day. Has been experiencing increasing depression as he is going through divorce with his . Medical consult for admission H&P. Mood disorder Plan as per psychiatry Alcohol use disorder Ativan prn for withdrawal symptoms Continue thiamine, paroxetine, folic acid Plan as per psychiatry GERD Cotinue ppi Thank you for allowing us to participate in the care of this patient. Signing off at this time. Please re-consult if any acute complaints or issues arise. Reason for continued inpatient stay Substantial Risk for: stable for discharge Time Spent With Patient Time: Total time managing care of this patient today ____ minutes.
[2023-12-12 17:47] VITALS: BP 129/76; PULSE 77; RESP 17; TEMP 37.1; O2SAT 99
[2023-12-12] MEDS: traZODone HCL 50 MG TABLET PO ×2 (21:47→23:50)
[2023-12-12] MEDS: Melatonin 3 MG TABLET 6 MG PO (21:47)
[2023-12-13] MEDS: hydrOXYzine HCL 25 MG TABLET PO (04:58)
[2023-12-13] MEDS: Omeprazole 20 MG CAPSULE.DR PO (04:58)
[2023-12-13] MEDS: QUEtiapine Fumarate 25 MG TABLET PO ×2 (04:58→10:15)
[2023-12-13] MEDS: LORazepam 1 MG TABLET PO (06:31)
[2023-12-13 08:46] VITALS: BP 123/58; PULSE 76; RESP 17; TEMP 36.8; O2SAT 97
[2023-12-13] MEDS: Multivitamin TABLET 1 TAB PO (08:56)
[2023-12-13] MEDS: Naltrexone HCl 50 MG TABLET PO (08:56)
[2023-12-13] MEDS: PARoxetine HCL 20 MG TABLET PO (08:56)
[2023-12-13] MEDS: Thiamine HCL 100 MG TABLET PO (08:56)
[2023-12-13] MEDS: Pyridoxine HCl (Vitamin B6) 50 MG TABLET PO (08:56)
[2023-12-13] MEDS: Folic Acid 1 MG TABLET PO (08:56)
[2023-12-13] MEDS: Nicotine 21 MG PATCH.TD24 TRANSDERMA (08:58)
[2023-12-13] MEDS: Acetaminophen 325 MG TABLET 650 MG PO (09:05)
[2023-12-13] MEDS: buPROPion HCl XL 150 MG TAB.ER.24H PO (09:06)
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
== END 2023-12-13 11:12 | disposition home or self-care (01) | DRG 885 ==
PROVIDERS: Admitting Provider Clinical Nurse Specialist Psychiatric/Mental Health, Adult; Visit Provider Clinical Nurse Specialist Psychiatric/Mental Health, Adult
DX: F33.2 Major depressive disorder, recurrent severe without psychotic features (principal); Z59.02 Unsheltered homelessness; K21.9 Gastro-esophageal reflux disease without esophagitis; F17.210 Nicotine dependence, cigarettes, uncomplicated; Z71.6 Tobacco abuse counseling; F14.10 Cocaine abuse, uncomplicated; F10.90 Alcohol use, unspecified, uncomplicated; Z91.51 Personal history of suicidal behavior; Z79.899 Other long term (current) drug therapy
CPT/HCPCS: 36415; 80061; 82607; 82746; 83036; 83735; 84439; 84443

== ENCOUNTER → 2023-12-09 15:29 | Outpatient (BNV) | payer SELFPAY | PROVIDERS: Admitting Provider Clinical Nurse Specialist Psychiatric/Mental Health, Adult; Visit Provider Clinical Nurse Specialist Psychiatric/Mental Health, Adult | DX: F33.2 Major depressive disorder, recurrent severe without psychotic features (principal); F14.10 Cocaine abuse, uncomplicated | CPT/HCPCS: 90792; 99231; 99232; 99238; 99499 ==

== ENCOUNTER → 2023-12-09 15:29 | Outpatient (BNV) | payer BC, SELFPAY | PROVIDERS: Admitting Provider Clinical Nurse Specialist Psychiatric/Mental Health, Adult; Visit Provider Student in an Organized Health Care Education/Training Program | DX: Z00.8 Encounter for other general examination (principal) | CPT/HCPCS: 99499 ==

== ENCOUNTER 2023-12-21 23:37 | Inpatient (IN) | payer SELFPAY ==
--- NOTE | ~2023-12-21 | XR_ITS ---
EXAMINATION: XR CHEST CLINICAL INFORMATION: Overdose COMPARISON: None available. TECHNIQUE: Frontal view of the chest was obtained. FINDINGS: There is slight elevation of the right hemidiaphragm. No focal consolidation is seen. Questionable trace right pleural effusion versus pleural thickening. No evidence of pneumothorax or pulmonary edema. The cardiomediastinal contour is unremarkable. No acute osseous findings are seen. XR/XR chest 1V IMPRESSION: No focal consolidation. Questionable trace right pleural effusion versus pleural thickening.
--- NOTE | 2023-12-21 23:56 | ECG_ITS ---
Test Reason : SI Blood Pressure : / mmHG Vent. Rate : 077 BPM Atrial Rate : 077 BPM P-R Int : 148 ms QRS Dur : 092 ms QT Int : 376 ms P-R-T Axes : 046 -11 021 degrees QTc Int : 425 ms Normal sinus rhythm Normal ECG When compared with ECG of 18-NOV-2023 08:45, No significant change was found Referred By: Nisa Doyle Electronically Signed By:VÍCTOR BOYLE
[2023-12-22] VITALS (12 sets, daily range): BP systolic 104–147; BP diastolic 64–90; PULSE 61–93; RESP 13–16; TEMP 36.6–37.1; O2SAT 93–98; BMI 29.3; BMI 30.8
--- NOTE | 2023-12-22 | ECG_ITS ---
Test Reason : REPEAT Blood Pressure : / mmHG Vent. Rate : 075 BPM Atrial Rate : 075 BPM P-R Int : 126 ms QRS Dur : 088 ms QT Int : 384 ms P-R-T Axes : 017 -11 020 degrees QTc Int : 428 ms Normal sinus rhythm Normal ECG When compared with ECG of 22-DEC-2023 02:17, No significant change was found Referred By: Nisa Doyle Electronically Signed By:VÍCTOR BOYLE
--- NOTE | 2023-12-22 00:07 | ED_ITS ---
HPI - Overdose General Chief Complaint: Psychiatric Symptoms Stated Complaint: OD ETOH SI Time Seen by Provider: 12/21/23 23:50 Source: patient, EMS and police Mode of arrival: EMS Limitations: no limitations History of Present Illness HPI Narrative: 43-year-old male brought in by EMS and police for evaluation after attempt of SI and overdosing on his Wellbutrin. Patient is feeling depressed for a while recent loss of his father and has been going through divorce patient is been homeless living in his car for the past few months today he drank alcohol and took 6 pills of albuterol (150 mg each) about 1 hour before arrival then the patient called EMS and the police. Patient had a history of depression taking Wellbutrin for, had a history of multiple mental health hospitalization due to several attempts of overdose in the past. Patient has no CP, no SOB, no abdominal pain. Related Data Previous Rx's ?Medication ?Instructions ?Recorded bupropion HCl 150 mg 24 hr tablet, 150 mg PO DAILY #14 tabs 12/13/23 extended release folic acid 1 mg tablet 1 mg PO DAILY #30 tabs 12/13/23 melatonin 3 mg tablet 6 mg (2 x 3 mg) PO BEDTIME #28 tabs 12/13/23 multivitamin (Daily-Shawanda tablet) 1 tab PO DAILY #30 tabs 12/13/23 naltrexone 50 mg tablet 50 mg PO DAILY #14 tabs 12/13/23 omeprazole 20 mg capsule,delayed 20 mg PO DAILY@0630 #14 caps 12/13/23 release paroxetine HCl 20 mg tablet 20 mg PO DAILY #14 tabs 12/13/23 pyridoxine (vitamin B6) 50 mg 50 mg PO DAILY #30 tabs 12/13/23 tablet thiamine mononitrate (vit B1) 100 100 mg PO DAILY #30 tabs 12/13/23 mg tablet Allergies Allergy/AdvReac Type Severity Reaction Status Date / Time No Known Allergies Allergy Verified 12/22/23 00:18 Review of Systems 2 Review of Systems: All other systems are reviewed and are negative Constitutional: Reports as per HPI and Reports no additional constitutional complaints Eyes: Reports as per HPI and Reports no additional eye complaints Reports system reviewed and no additional complaints, except as documented Cardiovascular: Reports as per HPI and Reports no additional cardiovascular complaints Respiratory: Reports as per HPI and Reports no additional respiratory complaints Gastrointestinal: Reports as per HPI and Reports no additional gastrointestinal complaints Genitourinary: Reports no additional female genitourinary complaints Musculoskeletal: Reports no additional musculoskeletal complaints Skin/Breast: Reports system reviewed and no additional complaints, except as docu Psychiatric: Reports no additional psychiatric complaints Endocrine: Reports no additional endocrine complaints Hematologic/Lymphatic: Reports no additional hematologic/lymphatic complaints Allergic/Immunologic: Reports no additional allergic/immunologic complaints Reports system reviewed and no additional complaints, except as documented and Reports Abnormal speech present [facility] Past Medical History Medical History GERD (gastroesophageal reflux disease) Alcohol use disorder Major depression Suicide attempt by multiple drug overdose Drug overdose Social History Social History Household Members: None Housing: Homeless Housing Other:: In Car Do you presently have visiting nurse or other home services: No Unable to assess alcohol history related to: Unable to respond Alcohol intake: current Alcohol intake frequency: 3 or more drinks per day Comment: 1:1 sitter Patient Tobacco Use Status: Current everyday Tobacco user Tobacco use type: Cigarette Cigarette Packs Per Day: 1 Cigarettes Per Day: 20.0 Years Smoked: 18 Smoked in Last 30 Days: Yes e-Cigarette/Vaping Use: Never Used Second Hand Smoke Exposure: No Use of substances other than those prescribed or required for medical reasons: Yes Substance Use Type: Marijuana Advance Directives: No Advance Directives Information Provided: Yes service: No Sexual orientation: Straight/Heterosexual Physical Exam 2 Vital Signs: Vital Signs: Last Vital Signs Temp 97.9 F 12/22/23 00:15 Pulse 75 12/22/23 04:07 Resp 16 12/22/23 04:07 BP 113/66 12/22/23 04:07 Pulse Ox 93 12/22/23 04:07 O2 Del Method Room Air 12/22/23 04:07 BMI result Body Mass Index 29.3 Vital signs have been reviewed and appear to be correct. Blood pressure elevated. Heart rate normal. Respiratory rate normal. Temperature normal. Oxygen saturation normal. Appearance: Alert. Oriented X3. No acute distress. Head: Normal external exam. Normocephalic. Atraumatic. No Lowe signs noted. No raccoon eyes noted Eyes: PERRLA. EOMI. Conjunctiva and sclera normal. Eyelids normal. ENT: TM's Normal. Pharynx normal. Uvula midline. Moist mucous membranes. No trismus noted. No drooling noted. No muffled voice noted. Neck: Normal inspection. Neck supple. FROM. No adenopathy. Thyroid Normal. No meningeal signs. No neck mass noted. CVS: Normal heart rate and rhythm. Heart sound normal. No murmurs noted. Pulses normal throughout. Respiratory: No respiratory distress. Painless inspiration. Breath sounds normal. No wheezes/rales/rhonchi noted. Chest nontender. No accessory muscle usage noted or decreased air movement noted. Abdomen: Soft and nontender. Bowel sounds normal in all 4 quadrants. No distention noted. No organomegaly noted. No visible injury noted. Back: No CVA tenderness. Full range of motion noted. Skin: Skin warm and dry. Normal skin color. Normal skin turgor. No rashes/lesions/lacerations noted. Extremities: No lower extremity edema. Extremities exhibit normal range of motion. Extremities nontender. Neuro: Oriented X 3. Cranial nerve exam: II-XII are grossly intact No motor deficit. No sensory deficit. Reflexes normal Patient Orientation: Person, Place, Time and Situation, tearful, okay hygiene and grooming. Poor eye contact, attentive, no tics or tremors. Level of Consciousness: Awake, Appropriate and Alert Patient Behavior: Appropriate, Guarded, Cooperative and Anxious Mood Description: Constricted, Blunted and Apprehensive, depressive mood. Affect Description: Constricted, Blunted and Apprehensive, depressive mood. Patient Cognition Impaired: No Ability to Follow Directions: Excellent Speech Pattern: Clear, Appropriate and Spontaneous Speech, nonpressured, spontaneous with regular rate and rhythm, normal volume and prosody. No dysarthria. Memory Description: Intact, Immediate Intact and Short Term Intact Hallucinations: None Delusions: Not Present Thought Process: Intact Thought Content: Attempted SI by overdose will hour before arrival. Depressive Symptoms: Not present. Judgement and Insight: Limited but adequate. Course Reevaluation(s) Reevaluation #1: 43-year-old male with severe depression secondary to his divorce process and being homeless, patient overdosed on Wellbutrin 900 mg tablet, patient received activated charcoal around 2 hours after the ingestion, the case was discussed with poison control who recommended the following. Admit for 24 hours observation. Watch for seizure activity and treat with benzos if needed. Needs EKG q.4 hours looking for PT prolongation. Otherwise supportive treatment. Continue one-to-one observation and psych evaluation after medically clear. Time: 02:04 Medications Administered Discontinued Medications Generic Name Dose Route Start Last Admin Trade Name Lynsey PRN Reason Stop Dose Admin Charcoal 50 gm 12/21/23 23:59 12/22/23 00:53 Activated Charcoal 50 Gm/240 Ml Oral.Susp PO 12/22/23 00:00 50 gm ONCE ONE Administration Sodium Chloride 1,000 mls @ 999 mls/hr 12/21/23 23:55 12/22/23 02:00 Ns IV 12/22/23 00:55 Infused .Q1H1M ONE Infusion Medical Decision Making Differential Diagnosis Differential Diagnoses: The differential diagnosis associated with the presentation includes (Aspirin overdose, Tylenol overdose, electrolyte derangement, EKG changes, other coingestion, complication of seizure. Alcohol intoxication, upper respiratory viral infection.) Admission/Observation Consideration of admission/observation: Escalation of care including admission/observation considered Consult Healthcare Provider Management of the patient was discussed with: Hospitalist (Dr. Garza) Lab Data MDM Lab Attestation statement: I reviewed the patient's lab results. 12/22/23 00:52 12/22/23 00:48 Labs: Lab Results 12/22/23 12/22/23 12/22/23 Range/Units 00:31 00:47 00:48 WBC (4.8-10.8) X10*3/uL RBC (4.60-5.80) X10*6/uL Hgb (14.0-18.0) g/dl Hct (42.0-52.0) % MCV (80.0-98.0) fL MCH (27.0-33.0) pg MCHC (31.0-36.0) g/dl RDW (11.0-16.0) % Plt Count (160-400) X10*3/uL MPV (9.4-12.4) fL Immature Gran % (Auto) (0.0-0.4) % Neut % (Auto) (45-73) % Lymph % (Auto) (20-40) % [place] % (Auto) (2-11) % Eos % (Auto) (0-4) % Baso % (Auto) (0-2) % Lymph # (Auto) (1.2-4.9) X10*3/uL [place] # (Auto) (0.1-1.2) X10*3/uL Eos # (Auto) (0.0-0.4) X10*3/uL Baso # (Auto) (0.0-0.2) X10*3/uL Abs Immat Gran (auto) (0.00-0.03) X10*3/uL Absolute Neuts (auto) (2.0-8.3) x10*3/uL Absolute Nucleated RBC (0.0-0.012) X10*3/uL Nucleated RBC % (auto) (0.0-0.2) /100WBC Sodium 144 (135-145) mmol/L Potassium 4.3 (3.3-5.1) mmol/L Chloride 109 H (96-108) mmol/L Carbon Dioxide 22 (22-29) mmol/L Anion Gap 17 (12-20) BUN 7 L (9-16) mg/dL Creatinine 1.18 (0.5-1.4) mg/dL Estim Creat Clear Calc 94.1 Estimated GFR > 60 Random Glucose 115 (60-115) mg/dL Calcium 9.1 (8.4-10.2) mg/dL Magnesium 2.5 (1.6-2.6) mg/dL Total Bilirubin 0.3 (0.0-1.0) mg/dL Direct Bilirubin 0.1 (0.0-0.5) mg/dL AST 42 H (5-37) U/L ALT 48 H (0-40) U/L Alkaline Phosphatase 112 (39-117) U/L Troponin I High Sens < 2.7 (<3.5-35.0) ng/L B-Natriuretic Peptide (<100) pg/mL Total Protein 8.5 H (6.5-8.0) g/dL Albumin 4.3 (3.5-5.0) g/dL Lipase 26 (8-78) U/L Salicylates (15-30) mg/dL Acetaminophen (<30) mcg/mL Ethyl Alcohol 276 mg/dL Influenza Type A (PCR) NEGATIVE (Negative) Influenza Type B (PCR) NEGATIVE (Negative) RSV RNA Qual (PCR) NEGATIVE (Negative) SARS-CoV-2 RNA (RT-PCR) NEGATIVE (Negative) 12/22/23 Range/Units 00:52 WBC 8.5 (4.8-10.8) X10*3/uL RBC 5.12 D (4.60-5.80) X10*6/uL Hgb 15.8 D (14.0-18.0) g/dl Hct 48.4 D (42.0-52.0) % MCV 94.5 (80.0-98.0) fL MCH 30.9 (27.0-33.0) pg MCHC 32.6 (31.0-36.0) g/dl RDW 14.9 (11.0-16.0) % Plt Count 549 H D (160-400) X10*3/uL MPV 7.7 L (9.4-12.4) fL Immature Gran % (Auto) 0.4 (0.0-0.4) % Neut % (Auto) 61.9 (45-73) % Lymph % (Auto) 23.8 (20-40) % Stan[place] % (Auto) 10.4 (2-11) % Eos % (Auto) 2.0 (0-4) % Baso % (Auto) 1.5 (0-2) % Lymph # (Auto) 2.0 (1.2-4.9) X10*3/uL [place] # (Auto) 0.9 (0.1-1.2) X10*3/uL Eos # (Auto) 0.2 (0.0-0.4) X10*3/uL Baso # (Auto) 0.1 (0.0-0.2) X10*3/uL Abs Immat Gran (auto) 0.03 (0.00-0.03) X10*3/uL Absolute Neuts (auto) 5.2 (2.0-8.3) x10*3/uL Absolute Nucleated RBC 0.000 (0.0-0.012) X10*3/uL Nucleated RBC % (auto) 0.0 (0.0-0.2) /100WBC Sodium (135-145) mmol/L Potassium (3.3-5.1) mmol/L Chloride (96-108) mmol/L Carbon Dioxide (22-29) mmol/L Anion Gap (12-20) BUN (9-16) mg/dL Creatinine (0.5-1.4) mg/dL Estim Creat Clear Calc Estimated GFR Random Glucose (60-115) mg/dL Calcium (8.4-10.2) mg/dL Magnesium (1.6-2.6) mg/dL Total Bilirubin (0.0-1.0) mg/dL Direct Bilirubin (0.0-0.5) mg/dL AST (5-37) U/L ALT (0-40) U/L Alkaline Phosphatase (39-117) U/L Troponin I High Sens (<3.5-35.0) ng/L B-Natriuretic Peptide < 10 (<100) pg/mL Total Protein (6.5-8.0) g/dL Albumin (3.5-5.0) g/dL Lipase (8-78) U/L Salicylates < 5.0 L (15-30) mg/dL Acetaminophen < 3 (<30) mcg/mL Ethyl Alcohol mg/dL Influenza Type A (PCR) (Negative) Influenza Type B (PCR) (Negative) RSV RNA Qual (PCR) (Negative) SARS-CoV-2 RNA (RT-PCR) (Negative) Independent Interpretation I performed an independent interpretation of an: EKG (Normal sinus rhythm at 77 beats per minute, normal intervals, no ST-T changes.) and Plain X-Ray (Chest:No focal consolidation. Questionable trace right pleural effusion versus pleural thickening. ) Interpretation: EKG 2. Similar to the 1st EKG was no QT prolongation. EKG 3. Similar to the previous EKG with no QT prolongation. Radiology Impression Discussion of test interpretation with radiology: I have reviewed the radiologist's reading. Critical Care Time Critical Care Time Critical Care Time: Yes Total Critical Care Time: 45 Attestation: The patient was critically ill with a high probability of imminent or life- threatening deterioration. I spent greater than 30 minutes of discontinuous time evaluating the patient, delivering critical care at the bedside, discussing evaluating data with consultants. Critical care time does not include time spent performing separately billable procedures or teaching. Time spent performing critical care was 45 minutes. Discharge Plan Discharge Clinical Impression: Major depression, Intentional overdose Patient Disposition: Admitted As Inpatient Interventions: ScionhealthSuicide Risk Severity Scale Last Done: 12/22/23 00:07
--- NOTE | 2023-12-22 00:08 | PC.NURSE ---
Pt alert and tearful on arrival, pt responds to verbal stimuli. Pt changed over. Sitter placed. Plan of care ongoing.
[2023-12-22] MEDS: Activated charcoaL 50 GM/240 ML ORAL.SUSP PO (00:53)
[2023-12-22] MEDS: 0.9 % Sodium Chloride 1,000 ML 999 ML IV (00:55)
[2023-12-22 00:56] LABS: MANUAL DIFF FLAG NO
[2023-12-22 00:58] LABS: Basophils Absolute Auto 0.1 X10*3/uL (0.0-0.2); Basophils Percent Auto 1.5 % (0-2); Eosinophils Absolute Auto 0.2 X10*3/uL (0.0-0.4); Hematocrit 48.4 % (42.0-52.0); Hemoglobin 15.8 g/dl (14.0-18.0); Imm Gran Abs Auto 0.03 X10*3/uL (0.00-0.03); Imm Gran Pct Auto 0.4 % (0.0-0.4); Lymphocytes Percent Auto 23.8 % (20-40); Mean Corpuscular HGB Conc 32.6 g/dl (31.0-36.0); Mean Corpuscular Hemoglobin 30.9 pg (27.0-33.0); Mean Corpuscular Volume 94.5 fL (80.0-98.0); Mean Platelet Volume 7.7 fL (9.4-12.4); Monocytes Absolute Auto 0.9 X10*3/uL (0.1-1.2); Monocytes Percent Auto 10.4 % (2-11); Neutrophils Absolute Auto 5.2 x10*3/uL (2.0-8.3); Neutrophils Percent Auto 61.9 % (45-73); Platelet Count 549 X10*3/uL (160-400); Red Blood Count 5.12 X10*6/uL (4.60-5.80); Red Cell Distribution Width 14.9 % (11.0-16.0); White Blood Count 8.5 X10*3/uL (4.8-10.8)
[2023-12-22 01:09] LABS: Ethanol 276 mg/dL
[2023-12-22 01:11] LABS: Alanine Aminotransferase 48 U/L (0-40); Albumin Level 4.3 g/dL (3.5-5.0); Alkaline Phosphatase 112 U/L (39-117); Anion Gap 17 (12-20); Aspartate Amino Transferase 42 U/L (5-37); Bilirubin Direct 0.1 mg/dL (0.0-0.5); Bilirubin Total 0.3 mg/dL (0.0-1.0); Blood Urea Nitrogen 7 mg/dL (9-16); Calcium 9.1 mg/dL (8.4-10.2); Carbon Dioxide 22 mmol/L (22-29); Chloride 109 mmol/L (96-108); Creatinine Clr Calc Pharmacy 94.1; Estimated Glomerular Filt Rate > 60; Glucose Random 115 mg/dL (60-115); Lipase 26 U/L (8-78); Magnesium 2.5 mg/dL (1.6-2.6); Potassium 4.3 mmol/L (3.3-5.1); Sodium 144 mmol/L (135-145); Total Protein 8.5 g/dL (6.5-8.0)
[2023-12-22 01:15] LABS: Influenza A PCR NEGATIVE (Negative); Influenza B PCR NEGATIVE (Negative); Resp Syncy Virus RNA Qual PCR NEGATIVE (Negative); SARS COV2 PCR INHOUSE NEGATIVE (Negative)
[2023-12-22 01:15] LABS: Acetaminophen LAB < 3 mcg/mL (<30); Salicylate < 5.0 mg/dL (15-30)
[2023-12-22 01:19] LABS: Troponin-I High Sensitivity < 2.7 ng/L (<3.5-35.0)
[2023-12-22 01:20] LABS: B Type Natriuretic Peptide < 10 pg/mL (<100)
--- NOTE | 2023-12-22 01:23 | PC.NURSE ---
Pt medicated per nov. Plan of care ongoing.
--- NOTE | 2023-12-22 01:52 | PC.NURSE ---
This RN called and spoke with dominick from poison control. Per dominick we should monitor pt and give supportive care. Pt took wellbutrin that may have been extended or sustained release which can delay seizure activity for 16-20 hrs Pt should be admitted for obs for 24 hrs. Benzos can be given for seizure activity and agitation. EKG should be repeated q 2 hrs x2 after initial ekg if normal q 4 hrs x1. Provider aware. Plan of care ongoing.
--- NOTE | 2023-12-22 06:12 | ECG_ITS ---
Test Reason : OD/ REPEAT Blood Pressure : / mmHG Vent. Rate : 083 BPM Atrial Rate : 083 BPM P-R Int : 156 ms QRS Dur : 092 ms QT Int : 386 ms P-R-T Axes : 047 -07 027 degrees QTc Int : 453 ms Normal sinus rhythm Normal ECG When compared with ECG of 22-DEC-2023 00:21, No significant change was found Referred By: Martha Ortega Electronically Signed By:VÍCTOR BOYLE
[2023-12-22] MEDS: Acetaminophen 325 MG TABLET 650 MG PO ×3 (06:35→18:55)
[2023-12-22] MEDS: Lactated Ringers 1,000 ML 125 ML IVCONT ×2 (06:39→17:31)
--- NOTE | 2023-12-22 06:39 | PC.NURSE ---
pt medicated per nov. Plan of care ongoing.
--- NOTE | 2023-12-22 08:21 | PC.NURSE ---
PT A/O X 4 NO SOB/DULCE NOTED SPEAKS IN FULL SENTENCES. PT DENIES ANY SI/HI. 1:1 SITTER AT BEDSIDE. PT C/O 3/ HEADACHE. PT ATE BREAKFAST. PT AWARE OF PLAN OF CARE. WILL CONTINUE TO MONITOR.
[2023-12-22] MEDS: 0.9 % Sodium Chloride Flush 3 ML SYRINGE IVFLUSH (08:26)
[2023-12-22] MEDS: Folic Acid 1 MG TABLET PO (08:26)
[2023-12-22] MEDS: Heparin Sodium,Porcine 5,000 UNIT/ML VIAL 5000 UNIT SUBCUT ×2 (08:28→18:54)
[2023-12-22] MEDS: Thiamine HCL 100 MG in 0.9 % Sodium Chloride 100 ML 202 MG IV (08:28)
--- NOTE | 2023-12-22 09:10 | ECG_ITS ---
Test Reason : CHECK QT PROLONGATION Blood Pressure : / mmHG Vent. Rate : 071 BPM Atrial Rate : 071 BPM P-R Int : 138 ms QRS Dur : 084 ms QT Int : 388 ms P-R-T Axes : 027 -10 018 degrees QTc Int : 421 ms Sinus rhythm with Premature supraventricular complexes Otherwise normal ECG When compared with ECG of 22-DEC-2023 04:53, Premature supraventricular complexes are now Present Referred By: Matrha Ortega Electronically Signed By:VÍCTOR BOYLE
--- NOTE | 2023-12-22 09:55 | PC.NURSE ---
HOSP ANANYA ([facility]Z) AT BEDSIDE, PT AWARE OF PLAN OF CARE.
--- NOTE | 2023-12-22 10:03 | PHA.MEDREC ---
Pharmacy Consult ? Medication Reconciliation Pharmacy has completed the medication reconciliation. Used list from discharge and pharmacy list
--- NOTE | 2023-12-22 10:59 | MHC.CM.PN ---
Pt. said he plans to move to [place] after he leaves here, his car is packed and ready to go. He will live with his mother, and get a PCP in [place], and make his mother his HCP when he gets there. He was recently here, treated on both medical and psych units. CM will follow and assist with DC plan.
--- NOTE | 2023-12-22 11:25 | PC.NURSE ---
[facility]. EKG TO BE DONE AT 1330 THEN THEY WILL EVALUATE ON THE TIME/DURATION OF EKG'S TO BE DONE.
--- NOTE | 2023-12-22 11:33 | PM.IMHP ---
History of Present Illness Date of Service: 12/22/23 Attending physician on admission: Refugio Agustin Chief Complaint: Overdose This is a 43 year old male with a history of alcohol use disorder, polysubstance use disorder, depression, previous suicidal ideation with intentional overdose who presents with intentional Wellbutrin overdose. He states that he took proximally 6 Wellbutrin tablets in the setting of heavy alcohol use. He reports drinking approximately 15 nips daily. In the emergency department he was treated with activated charcoal 2 hours after the ingestion. The case was discussed with poison control who recommended 24 hour observation to monitor for seizure activity and close monitoring of EKG and QT prolongation. He also reports feeling anxious and a little jittery. Review of Systems Review of Systems: Yes all other systems are reviewed and are negative Constitutional: Constitutional: Denies chills and Denies fever(s) Cardiovascular: Cardiovascular: Denies chest pain and Denies palpitations Endocrine: Endocrine: Denies palpitations [facility] Medical History GERD (gastroesophageal reflux disease) Alcohol use disorder Major depression Suicide attempt by multiple drug overdose Drug overdose Social History Household Members: None Housing: Homeless Housing Other:: In Car Do you presently have visiting nurse or other home services: No Unable to assess alcohol history related to: Unable to respond Alcohol intake: current Alcohol intake frequency: 3 or more drinks per day Comment: 1:1 sitter Patient Tobacco Use Status: Current everyday Tobacco user Tobacco use type: Smokeless Tobacco Cigarette Packs Per Day: 1 Cigarettes Per Day: 20.0 Years Smoked: 28 Smoked in Last 30 Days: Yes e-Cigarette/Vaping Use: Currently Using Patient Interested in Nicotine Replacement: Yes Patient Given Instructions on How to Stop Smoking: No Second Hand Smoke Exposure: No Use of substances other than those prescribed or required for medical reasons: Yes Substance Use Type: Marijuana Substance Use Frequency: Occasionally Last Used Substance: Days (ago) Currently Displaying Signs/Symptoms of Drug Intoxication Withdrawal: No Any prior treatment program specific to substance use: Yes (alcohol cesation program) Have you been hit, kicked, punched, or otherwise hurt by someone within the past year? If so, by whom?: No Do you feel safe in your current relationship?: No Is there a partner from a previous relationship who is making you feel unsafe now?: No Are you made to feel afraid or neglected: Yes Advance Directives: No Advance Directives Information Provided: Yes Do you have thoughts of harming others: None Do you have a plan to hurt others: No Plan Recently lost weight without trying: No Eating poorly because of decreased appetite: No Nutrition Risks: Difficulty chewing Poor oral hygiene: Yes service: No Sexual orientation: Straight/Heterosexual Meds Allergies Allergy/AdvReac Type Severity Reaction Status Date / Time No Known Allergies Allergy Verified 12/22/23 00:18 Active Medications: Current Medications Acetaminophen (Acetaminophen 325 Mg Tablet) 650 mg PO Q6H PRN PRN Reason: Pain, Mild (Pain Scale 1-3) Last Admin: 12/22/23 06:35 Dose: 650 mg Folic Acid (Folic Acid 1 Mg Tablet) 1 mg PO DAILY [facility] Last Admin: 12/22/23 08:26 Dose: 1 mg Heparin Sodium (Porcine) (Heparin Sodium,Porcine 5,000 Unit/Ml Vial) 5,000 unit SUBCUT Q8H [facility] Last Admin: 12/22/23 08:28 Dose: 5,000 unit Thiamine HCl 100 mg/ Sodium (Chloride) 101 mls @ 202 mls/hr IV DAILY [facility] Stop: 12/27/23 08:59 Last Infusion: 12/22/23 10:40 Dose: Infused Lactated Ringer's (Lr) 1,000 mls @ 125 mls/hr IVCONT .Q8H [facility] Last Infusion: 12/22/23 11:09 Dose: 125 mls/hr Lorazepam (Lorazepam 2 Mg/Ml Vial) 2 mg IVPUSH ONCE PRN PRN Reason: seizures Pharmacy Consult (Consult Rx Etoh Phenob Im/Po) 1 each MISCELLANE ONCE PRN; Protocol PRN Reason: Consult order Sodium Chloride (0.9 % Sodium Chloride Flush 3 Ml Syringe) 3 ml IVFLUSH QSHIFT [facility] Last Admin: 12/22/23 08:26 Dose: 3 ml Physical Exam Vital Signs and Narrative: Vital Signs: Last Vital Signs Temp 98.1 F 12/22/23 11:19 Pulse 70 12/22/23 11:19 Resp 13 12/22/23 11:19 BP 133/89 12/22/23 11:19 Pulse Ox 97 12/22/23 11:19 O2 Del Method Room Air 12/22/23 11:19 BMI result Body Mass Index 29.3 Const: General: cooperative, comfortable, alert and awake Nutritional Appearance: average body habitus Orientation/consciousness: patient oriented x3 HEENT: Other: poor dentition Resp: Effort & Inspection: normal respiratory effort, able to speak in complete sentences, no respiratory distress and no use of accessory muscles Cardio: Rate: regular rate GI: Inspection: No distended Palpation (GI): Soft to palpation and nontender Neuro: General: patient oriented x3 and moves all extremities Extrem: General: Yes no pedal edema Results Labs 12/23/23 07:26 12/22/23 00:48 Labs: Laboratory Results - last 24 hr 12/22/23 12/22/23 12/22/23 00:31 00:47 00:48 MCV MCH MCHC RDW Plt Count MPV Immature Gran % (Auto) Neut % (Auto) Lymph % (Auto) [place] % (Auto) Eos % (Auto) Baso % (Auto) Lymph # (Auto) [place] # (Auto) Eos # (Auto) Baso # (Auto) Abs Immat Gran (auto) Absolute Neuts (auto) Absolute Nucleated RBC Nucleated RBC % (auto) Anion Gap 17 Estim Creat Clear Calc 94.1 Estimated GFR > 60 Random Glucose 115 Calcium 9.1 Magnesium 2.5 Total Bilirubin 0.3 Direct Bilirubin 0.1 AST 42 H ALT 48 H Alkaline Phosphatase 112 Troponin I High Sens < 2.7 B-Natriuretic Peptide Total Protein 8.5 H Albumin 4.3 Lipase 26 Salicylates Acetaminophen Ethyl Alcohol 276 Influenza Type A (PCR) NEGATIVE Influenza Type B (PCR) NEGATIVE RSV RNA Qual (PCR) NEGATIVE SARS-CoV-2 RNA (RT-PCR) NEGATIVE 12/22/23 00:52 MCV 94.5 MCH 30.9 MCHC 32.6 RDW 14.9 Plt Count 549 H D MPV 7.7 L Immature Gran % (Auto) 0.4 Neut % (Auto) 61.9 Lymph % (Auto) 23.8 [place] % (Auto) 10.4 Eos % (Auto) 2.0 Baso % (Auto) 1.5 Lymph # (Auto) 2.0 [place] # (Auto) 0.9 Eos # (Auto) 0.2 Baso # (Auto) 0.1 Abs Immat Gran (auto) 0.03 Absolute Neuts (auto) 5.2 Absolute Nucleated RBC 0.000 Nucleated RBC % (auto) 0.0 Anion Gap Estim Creat Clear Calc Estimated GFR Random Glucose Calcium Magnesium Total Bilirubin Direct Bilirubin AST ALT Alkaline Phosphatase Troponin I High Sens B-Natriuretic Peptide < 10 Total Protein Albumin Lipase Salicylates < 5.0 L Acetaminophen < 3 Ethyl Alcohol Influenza Type A (PCR) Influenza Type B (PCR) RSV RNA Qual (PCR) SARS-CoV-2 RNA (RT-PCR) Imaging Radiologist's Impressions: Impressions Chest X-Ray 12/22/23 01:05 IMPRESSION: No focal consolidation. Questionable trace right pleural effusion versus pleural thickening. Assessment and Plan (1) Intentional overdose: Status: Acute (2) Alcohol use disorder: Status: Acute Plan This is a 43-year-old male with pertinent history of suicidal ideation with intentional overdose, alcohol use disorder, major depressive disorder who presents to the emergency department after intentional overdose. Intentional overdose with suicidal intent: no QT prolongation - follow repeat EKG this afternoon Seizure precautions continue sitter for safety care team eval when medically cleared Alcohol use disorder with concern for withdrawal will start phenobarb protocol follow CIWA continue thiamine supplementation Addition medicine consultation pending Elevated liver enzymes: due to alcohol use, chronic h/o polysubstance abuse tox screen pending addiction medicine consult as above Gastroesophageal reflux disease: Continue PPI tobacco dependence Smoking cessation advised NRT dvt PPX - heparin Patient will likely require two midnight stay in the hospital for close monitoring on telemetry. Patient will also need care team consultation for possible admission for psychiatric care Quality Stroke Does the patient have a stroke diagnosis?: No VTE Prior VTE?: No VTE Risk Level:: Medical - moderate - high VTE Device Contraindication: Treatment Not Indicated VTE Drug Contraindication: N/A - Med Ordered
[2023-12-22 11:42] LABS: Appearance Urine Cloudy; Color Urine Dark Yellow; Glucose Urine UA Negative (Negative); Leukocyte Esterase Urine Small (1+) (Negative); Nitrite Urine Negative (Negative); Specific Gravity - Urine >= 1.030 (1.005-1.025); UMIC TRIGGER UACC YES; Urine Blood Negative (Negative); Urine Ketones Negative (Negative); Urine Protein 100 (2+) mg/dL (Neg-Trace)
[2023-12-22 11:52] LABS: Amphetamine Screen Urine Not Detected (Not Detect); Barbiturates, Urine POSITIVE (Not Detect); Benzodiazepines Screen Urine Not Detected (Not Detect); Buprenorphine Scr Not Detected (Not Detect); Cannabinoid Screen Urine POSITIVE (Not Detect); Cocaine Screen Urine POSITIVE (Not Detect); Fentanyl, urine Not Detected (Not Detect); Methadone Screen, Urine Not Detected (Not Detect); Opiate Screen Urine Not Detected (Not Detect); Oxycodone Screen Urine Not Detected (Not Detect); Phencyclidine Screen Urine Not Detected (Not Detect)
[2023-12-22 12:08] LABS: Bacteria Urine None Seen (None Seen); Hyaline Casts Urine 0-2 /LPF (0-2); RBC Urine 0-2 /HPF (0-2); Squamous Epithelial Cell Urine 0-2 /HPF (0-2); UACC Culture Trigger YES
--- NOTE | 2023-12-22 12:10 | PC.NURSE ---
PT REQUESTED NICOTINE PATCH (SMOKES 1PPD) AND ALSO C/O INCREASE ANXIETY. MLP AWARE. WILL CONTINUE TO MONITOR.
[2023-12-22] MEDS: Nicotine 14 MG PATCH.TD24 TRANSDERMA (12:22)
[2023-12-22] MEDS: PHENobarbitaL sodium 130 MG/ML IM ONCE 241 MG IM (12:23)
--- NOTE | 2023-12-22 13:30 | ECG_ITS ---
Test Reason : CHECK QT PROLONGATION Blood Pressure : / mmHG Vent. Rate : 065 BPM Atrial Rate : 065 BPM P-R Int : 138 ms QRS Dur : 084 ms QT Int : 404 ms P-R-T Axes : 026 -11 015 degrees QTc Int : 420 ms Normal sinus rhythm Normal ECG No significant changes when compared with the previous EKG of 22 december 2023 Referred By: Camryn Johnson Electronically Signed By:VÍCTOR BOYLE
--- NOTE | 2023-12-22 14:47 | PC.NURSE ---
EKG DONE FOR THIS PT AND WAS TIGERED TO [facility]). RIK FROM POISON CONTROL AND STATES OBSERVE FOR 24HR FROM THE TIME OF INGESTION. NO MORE TIMED EKG. EKG TO BE DONE PRIOR TO PT BEING D/C HOME.
[2023-12-22] MEDS: PHENobarbitaL sodium 130 MG/ML VIAL IM Q3Hx2 181 MG IM ×2 (15:05→18:52)
--- NOTE | 2023-12-22 17:39 | PC.NURSE ---
resting queitly in bed. sitter at bedside. only complaint is a headache. is aware of plan of care and need for full 24 hrs monitoring b/f medically cleared. NAD. NSR on monitor.
[2023-12-23] VITALS (8 sets, daily range): BP systolic 143–171; BP diastolic 82–96; PULSE 54–71; RESP 18–20; TEMP 36.3–36.9; O2SAT 95–100
--- NOTE | 2023-12-23 | ECG_ITS ---
Test Reason : qtc check Blood Pressure : / mmHG Vent. Rate : 063 BPM Atrial Rate : 063 BPM P-R Int : 144 ms QRS Dur : 086 ms QT Int : 418 ms P-R-T Axes : 022 -11 011 degrees QTc Int : 427 ms Sinus rhythm with Premature supraventricular complexes Otherwise normal ECG When compared with ECG of 22-DEC-2023 14:15, Premature supraventricular complexes are now Present Referred By: Camryn Johnson Electronically Signed By:VÍCTOR BOYLE
[2023-12-23] MEDS: Lactated Ringers 1,000 ML 125 ML IVCONT (01:44)
[2023-12-23] MEDS: Acetaminophen 325 MG TABLET 650 MG PO ×2 (01:44→16:50)
[2023-12-23] MEDS: Heparin Sodium,Porcine 5,000 UNIT/ML VIAL 5000 UNIT SUBCUT ×3 (01:46→16:46)
[2023-12-23] MEDS: PHENobarbitaL 30 MG TABLET PO (03:26)
[2023-12-23] MEDS: Omeprazole 20 MG CAPSULE.DR PO (06:26)
[2023-12-23 07:28] LABS: MANUAL DIFF FLAG NO
[2023-12-23 07:34] LABS: Basophils Absolute Auto 0.1 X10*3/uL (0.0-0.2); Basophils Percent Auto 0.9 % (0-2); Eosinophils Absolute Auto 0.2 X10*3/uL (0.0-0.4); Hematocrit 39.9 % (42.0-52.0); Imm Gran Abs Auto 0.03 X10*3/uL (0.00-0.03); Imm Gran Pct Auto 0.4 % (0.0-0.4); Lymphocytes Absolute Auto 1.5 X10*3/uL (1.2-4.9); Lymphocytes Percent Auto 18.1 % (20-40); Mean Corpuscular HGB Conc 32.6 g/dl (31.0-36.0); Mean Corpuscular Hemoglobin 31.4 pg (27.0-33.0); Mean Corpuscular Volume 96.4 fL (80.0-98.0); Mean Platelet Volume 8.1 fL (9.4-12.4); Monocytes Absolute Auto 0.7 X10*3/uL (0.1-1.2); Monocytes Percent Auto 8.7 % (2-11); Neutrophils Absolute Auto 5.5 x10*3/uL (2.0-8.3); Neutrophils Percent Auto 68.9 % (45-73); Platelet Count 397 X10*3/uL (160-400); Red Blood Count 4.14 X10*6/uL (4.60-5.80); Red Cell Distribution Width 14.6 % (11.0-16.0)
[2023-12-23] MEDS: Folic Acid 1 MG TABLET PO (08:25)
[2023-12-23] MEDS: PHENobarbitaL 30 MG TABLET 60 MG PO ×2 (08:25→20:29)
[2023-12-23] MEDS: 0.9 % Sodium Chloride Flush 3 ML SYRINGE IVFLUSH ×3 (08:26→20:29)
[2023-12-23] MEDS: Nicotine 14 MG PATCH.TD24 TRANSDERMA (08:26)
[2023-12-23] MEDS: Thiamine HCL 100 MG in 0.9 % Sodium Chloride 100 ML 202 MG IV (08:40)
[2023-12-23 09:36] LABS: Anion Gap 12 (12-20); Blood Urea Nitrogen 6 mg/dL (9-16); Calcium 8.9 mg/dL (8.4-10.2); Carbon Dioxide 25 mmol/L (22-29); Chloride 106 mmol/L (96-108); Creatinine Clr Calc Pharmacy 135.3; Estimated Glomerular Filt Rate > 60; Glucose Random 100 mg/dL (60-115); Potassium 3.7 mmol/L (3.3-5.1); Sodium 139 mmol/L (135-145)
[2023-12-23] MEDS: LORazepam 0.5 MG TABLET PO ×2 (11:26→17:09)
--- NOTE | 2023-12-23 13:34 | MHC.CM.PN ---
emr reviewed, per hospitalist pt will need care team clearance prior to dc, per previous cm pt plans on moving to [facility] on and car is packed however pt has been living in his car for a few months, cm will cont to follow dc needs.
--- NOTE | 2023-12-23 14:23 | P.EN_ITS ---
Event Note Date of Service: 12/23/23 Event Note: Addiction consult received for patient with AUD medically admitted following intentional overdose with Wellbutrin Consult requested as patient has been drinking daily. Chart reviewed, patient has been seen by commercial front load operator's during admissions at [facility] for similar presentation Last consult with [facility] was at the beginning of December. Will de Time Spent With Patient Time: Total time managing care of this patient today ____ minutes.
--- NOTE | 2023-12-23 14:59 | P.PNADD_ITS ---
Subjective Subjective Date of Service: 12/23/23 Reason For Visit: Wellbutrin overdose Interim History: Patient medically admitted following intentional Wellbutrin overdose. Consult requested as patients reports drinking 10-15 nips daily Chart reviewed and patient seen in room 487. Laying in bed, initially asleep, but easily woke to speak with this comic book writer. Minimal participation in interview. Reports he wants to continue Naltrexone, unsure when he last took it. He states that his plan is still to move to [place], but he stayed longer this time because he wanted to hang out with a few people and wanted to wait for a check to clear before he left Motivation unclear as he vacillated btwn wanting resources for support and then saying no because he is moving Review of Systems Review of Systems Yes all other systems are reviewed and are negative Mental Status Exam Mental Status Exam Patient Appearance: Unkempt Level of Consciousness: Awake Patient Behavior: Guarded and Avoidant Mood Description: Blunted Affect Description: Blunted Speech Pattern: Clear and Soft-Spoken (minimal responses ) Judgement: Fair Diagnostics Vital Signs (24Hr): Vital Signs - 24 hr 12/22/23 15:48 12/22/23 17:38 12/22/23 19:05 Temperature 98.7 F 98.5 F 97.9 F Pulse Rate 66 61 65 Respiratory Rate 16 14 16 Blood Pressure 139/82 144/87 H 146/83 H Pulse Oximetry 96 97 98 Oxygen Delivery Method Room Air Room Air Room Air Fraction of Inspired Oxygen 12/22/23 19:52 12/23/23 00:00 12/23/23 03:39 Temperature 97.9 F 98.5 F 98.0 F Pulse Rate 61 59 65 Respiratory Rate 16 19 18 Blood Pressure 144/85 H 171/96 H 160/94 H Pulse Oximetry 98 96 95 Oxygen Delivery Method Room Air Room Air Room Air Fraction of Inspired Oxygen 12/23/23 06:24 12/23/23 07:35 12/23/23 12:00 Temperature 98.5 F 97.4 F 98.2 F Pulse Rate 58 56 66 Respiratory Rate 19 20 18 Blood Pressure 156/83 H 170/93 H 154/85 H Pulse Oximetry 96 98 Oxygen Delivery Method Room Air Room Air Room Air Fraction of Inspired Oxygen 96 BMI result Body Mass Index 30.8 Labs 12/23/23 07:26 12/23/23 08:48 Labs: Laboratory Results - last 48 hr 12/22/23 12/22/23 12/22/23 00:31 00:47 00:48 WBC RBC Hgb Hct MCV MCH MCHC RDW Plt Count MPV Immature Gran % (Auto) Neut % (Auto) Lymph % (Auto) [place] % (Auto) Eos % (Auto) Baso % (Auto) Lymph # (Auto) [place] # (Auto) Eos # (Auto) Baso # (Auto) Abs Immat Gran (auto) Absolute Neuts (auto) Absolute Nucleated RBC Nucleated RBC % (auto) Sodium 144 Potassium 4.3 Chloride 109 H Carbon Dioxide 22 Anion Gap 17 BUN 7 L Creatinine 1.18 Estim Creat Clear Calc 94.1 Estimated GFR > 60 Random Glucose 115 Calcium 9.1 Magnesium 2.5 Total Bilirubin 0.3 Direct Bilirubin 0.1 AST 42 H ALT 48 H Alkaline Phosphatase 112 Troponin I High Sens < 2.7 B-Natriuretic Peptide Total Protein 8.5 H Albumin 4.3 Lipase 26 Urine Color Urine Appearance Urine pH Ur Specific [place] Urine Protein Urine Glucose (UA) Urine Ketones Urine Blood Urine Nitrite Ur Leukocyte Esterase Urine RBC Urine WBC Ur Squamous Epith Cells Urine Bacteria Hyaline Casts Salicylates Urine Opiates Screen Ur Buprenorphine Scrn Ur Oxycodone Screen Urine Methadone Screen Urine Fentanyl Screen Acetaminophen Ur Barbiturates Screen Ur Phencyclidine Scrn Ur Amphetamines Screen U Benzodiazepines Scrn Urine Cocaine Screen U Marijuana (THC) Screen Ethyl Alcohol 276 Influenza Type A (PCR) NEGATIVE Influenza Type B (PCR) NEGATIVE RSV RNA Qual (PCR) NEGATIVE SARS-CoV-2 RNA (RT-PCR) NEGATIVE 12/22/23 12/22/23 12/23/23 00:52 11:27 07:26 WBC 8.5 8.0 RBC 5.12 D 4.14 L Hgb 15.8 D 13.0 L Hct 48.4 D 39.9 L MCV 94.5 96.4 MCH 30.9 31.4 MCHC 32.6 32.6 RDW 14.9 14.6 Plt Count 549 H D 397 D MPV 7.7 L 8.1 L Immature Gran % (Auto) 0.4 0.4 Neut % (Auto) 61.9 68.9 Lymph % (Auto) 23.8 18.1 L [place] % (Auto) 10.4 8.7 Eos % (Auto) 2.0 3.0 Baso % (Auto) 1.5 0.9 Lymph # (Auto) 2.0 1.5 [place] # (Auto) 0.9 0.7 Eos # (Auto) 0.2 0.2 Baso # (Auto) 0.1 0.1 Abs Immat Gran (auto) 0.03 0.03 Absolute Neuts (auto) 5.2 5.5 Absolute Nucleated RBC 0.000 0.000 Nucleated RBC % (auto) 0.0 0.0 Sodium Potassium Chloride Carbon Dioxide Anion Gap BUN Creatinine Estim Creat Clear Calc Estimated GFR Random Glucose Calcium Magnesium Total Bilirubin Direct Bilirubin AST ALT Alkaline Phosphatase Troponin I High Sens B-Natriuretic Peptide < 10 Total Protein Albumin Lipase Urine Color Dark Yellow Urine Appearance Cloudy Urine pH 6.0 Ur Specific [place] >= 1.030 H Urine Protein 100 (2+) H Urine Glucose (UA) Negative Urine Ketones Negative Urine Blood Negative Urine Nitrite Negative Ur Leukocyte Esterase Small (1+) H Urine RBC 0-2 Urine WBC 11-20 Ur Squamous Epith Cells 0-2 Urine Bacteria None Seen Hyaline Casts 0-2 Salicylates < 5.0 L Urine Opiates Screen Not Detected Ur Buprenorphine Scrn Not Detected Ur Oxycodone Screen Not Detected Urine Methadone Screen Not Detected Urine Fentanyl Screen Not Detected Acetaminophen < 3 Ur Barbiturates Screen POSITIVE H Ur Phencyclidine Scrn Not Detected Ur Amphetamines Screen Not Detected U Benzodiazepines Scrn Not Detected Urine Cocaine Screen POSITIVE H U Marijuana (THC) Screen POSITIVE H Ethyl Alcohol Influenza Type A (PCR) Influenza Type B (PCR) RSV RNA Qual (PCR) SARS-CoV-2 RNA (RT-PCR) 12/23/23 08:48 WBC RBC Hgb Hct MCV MCH MCHC RDW Plt Count MPV Immature Gran % (Auto) Neut % (Auto) Lymph % (Auto) [place] % (Auto) Eos % (Auto) Baso % (Auto) Lymph # (Auto) [place] # (Auto) Eos # (Auto) Baso # (Auto) Abs Immat Gran (auto) Absolute Neuts (auto) Absolute Nucleated RBC Nucleated RBC % (auto) Sodium 139 Potassium 3.7 Chloride 106 Carbon Dioxide 25 Anion Gap 12 BUN 6 L Creatinine 0.84 Estim Creat Clear Calc 135.3 Estimated GFR > 60 Random Glucose 100 Calcium 8.9 Magnesium Total Bilirubin Direct Bilirubin AST ALT Alkaline Phosphatase Troponin I High Sens B-Natriuretic Peptide Total Protein Albumin Lipase Urine Color Urine Appearance Urine pH Ur Specific [place] Urine Protein Urine Glucose (UA) Urine Ketones Urine Blood Urine Nitrite Ur Leukocyte Esterase Urine RBC Urine WBC Ur Squamous Epith Cells Urine Bacteria Hyaline Casts Salicylates Urine Opiates Screen Ur Buprenorphine Scrn Ur Oxycodone Screen Urine Methadone Screen Urine Fentanyl Screen Acetaminophen Ur Barbiturates Screen Ur Phencyclidine Scrn Ur Amphetamines Screen U Benzodiazepines Scrn Urine Cocaine Screen U Marijuana (THC) Screen Ethyl Alcohol Influenza Type A (PCR) Influenza Type B (PCR) RSV RNA Qual (PCR) SARS-CoV-2 RNA (RT-PCR) Imaging Radiology Impressions: ITS Impressions Chest X-Ray 12/22/23 01:05 IMPRESSION: No focal consolidation. Questionable trace right pleural effusion versus pleural thickening. Medications Medications Current Medications Acetaminophen (Acetaminophen 325 Mg Tablet) 650 mg PO Q6H PRN PRN Reason: Pain, Mild (Pain Scale 1-3) Last Admin: 12/23/23 01:44 Dose: 650 mg Folic Acid (Folic Acid 1 Mg Tablet) 1 mg PO DAILY [facility] Last Admin: 12/23/23 08:25 Dose: 1 mg Heparin Sodium (Porcine) (Heparin Sodium,Porcine 5,000 Unit/Ml Vial) 5,000 unit SUBCUT Q8H [facility] Last Admin: 12/23/23 08:26 Dose: 5,000 unit Thiamine HCl 100 mg/ Sodium (Chloride) 101 mls @ 202 mls/hr IV DAILY [facility] Stop: 12/27/23 08:59 Last Infusion: 12/23/23 09:22 Dose: Infused Lorazepam (Lorazepam 2 Mg/Ml Vial) 2 mg IVPUSH ONCE PRN PRN Reason: seizures Nicotine (Nicotine 14 Mg Patch.Td24) 14 mg TRANSDERMA DAILY [facility] Last Admin: 12/23/23 08:26 Dose: 14 mg Omeprazole (Omeprazole 20 Mg Capsule.Dr) 20 mg PO DAILY@0630 [facility] Last Admin: 12/23/23 06:26 Dose: 20 mg Pharmacy Consult (Consult Rx Etoh Phenob Im/Po) 1 each MISCELLANE ONCE PRN; Protocol PRN Reason: Consult order Phenobarbital (Phenobarbital 30 Mg Tablet) 60 mg PO BID [facility] Stop: 12/24/23 21:01 Last Admin: 12/23/23 08:25 Dose: 60 mg Phenobarbital (Phenobarbital 30 Mg Tablet) 30 mg PO BID [facility] Stop: 12/26/23 21:01 Phenobarbital (Phenobarbital 30 Mg Tablet) 30 mg PO DAILY [facility] Stop: 12/28/23 09:01 Sodium Chloride (0.9 % Sodium Chloride Flush 3 Ml Syringe) [facility] Last Admin: 12/23/23 08:26 Dose: 3 ml Allergies Allergies Allergy/AdvReac Type Severity Reaction Status Date / Time No Known Allergies Allergy Verified 12/22/23 00:18 Assessment & Plan Assessment & Plan (1) Alcohol use disorder: Status: Acute Code(s): F10.90 - Alcohol use, unspecified, uncomplicated Assessment and Plan: * resume naltrexone when appropriate * declined resources * no follow up indicated at this time Plan Total time managing care of this patient today __20__ minutes.
--- NOTE | 2023-12-23 16:14 | HO.PM.IMPN ---
Subjective Subjective Date of Service: 12/23/23 Interval History: seen and examined this morning follow up for wellbutrin overdose Received additional dose of phenobarbital overnight Reporting some anxiety Review of Systems Review of Systems: Yes all other systems are reviewed and are negative Constitutional Constitutional: Denies chills and Denies fever(s) Cardiovascular Cardiovascular: Denies chest pain and Denies dyspnea Respiratory Respiratory: Denies dyspnea Gastrointestinal Gastrointestinal: Denies abdominal pain Physical Exam Vital Signs: Vital Signs: Last Vital Signs Temp 98.2 F 12/23/23 12:00 Pulse 66 12/23/23 12:00 Resp 18 12/23/23 12:00 BP 154/85 H 12/23/23 12:00 Pulse Ox 98 12/23/23 12:00 O2 Del Method Room Air 12/23/23 12:00 FiO2 96 12/23/23 06:24 BMI result Body Mass Index 30.8 Const: General: cooperative, comfortable, no acute distress, alert and awake Nutritional Appearance: average body habitus Orientation/consciousness: patient oriented x3 HEENT: Other: poor dentition Resp: Effort & Inspection: normal respiratory effort, able to speak in complete sentences, no respiratory distress and no use of accessory muscles Cardio: Rate: regular rate GI: Inspection: No distended Palpation (GI): Soft to palpation and nontender Neuro: General: patient oriented x3 and moves all extremities Extrem: General: Yes no pedal edema Objective Data Active Medications Acetaminophen (Acetaminophen 325 Mg Tablet) 650 mg PO Q6H PRN PRN Reason: Pain, Mild (Pain Scale 1-3) Last Admin: 12/23/23 01:44 Dose: 650 mg Documented By: SUAD Folic Acid (Folic Acid 1 Mg Tablet) 1 mg PO DAILY [facility] Last Admin: 12/23/23 08:25 Dose: 1 mg Documented By: KIM Heparin Sodium (Porcine) (Heparin Sodium,Porcine 5,000 Unit/Ml Vial) 5,000 unit SUBCUT Q8H [facility] Last Admin: 12/23/23 08:26 Dose: 5,000 unit Documented By: KIM Thiamine HCl 100 mg/ Sodium (Chloride) 101 mls @ 202 mls/hr IV DAILY [facility] Stop: 12/27/23 08:59 Last Infusion: 12/23/23 09:22 Dose: Infused Documented By: KIM Lorazepam (Lorazepam 2 Mg/Ml Vial) 2 mg IVPUSH ONCE PRN PRN Reason: seizures Nicotine (Nicotine 14 Mg Patch.Td24) 14 mg TRANSDERMA DAILY [facility] Last Admin: 12/23/23 08:26 Dose: 14 mg Documented By: KIM Omeprazole (Omeprazole 20 Mg Capsule.Dr) 20 mg PO DAILY@0630 [facility] Last Admin: 12/23/23 06:26 Dose: 20 mg Documented By: SUAD Pharmacy Consult (Consult Rx Etoh Phenob Im/Po) 1 each MISCELLANE ONCE PRN; Protocol PRN Reason: Consult order Phenobarbital (Phenobarbital 30 Mg Tablet) 60 mg PO BID [facility] Stop: 12/24/23 21:01 Last Admin: 12/23/23 08:25 Dose: 60 mg Documented By: KIM Phenobarbital (Phenobarbital 30 Mg Tablet) 30 mg PO BID [facility] Stop: 12/26/23 21:01 Phenobarbital (Phenobarbital 30 Mg Tablet) 30 mg PO DAILY [facility] Stop: 12/28/23 09:01 Sodium Chloride (0.9 % Sodium Chloride Flush 3 Ml Syringe) 3 ml IVFLUSH QSHIFT [facility] Last Admin: 12/23/23 08:26 Dose: 3 ml Documented By: KIM Labs 12/23/23 07:26 12/23/23 08:48 Labs: Laboratory Results - last 24 hr 12/23/23 12/23/23 07:26 08:48 MCV 96.4 MCH 31.4 MCHC 32.6 RDW 14.6 Plt Count 397 D MPV 8.1 L Immature Gran % (Auto) 0.4 Neut % (Auto) 68.9 Lymph % (Auto) 18.1 L Hamlin % (Auto) 8.7 Eos % (Auto) 3.0 Baso % (Auto) 0.9 Lymph # (Auto) 1.5 Hamlin # (Auto) 0.7 Eos # (Auto) 0.2 Baso # (Auto) 0.1 Abs Immat Gran (auto) 0.03 Absolute Neuts (auto) 5.5 Absolute Nucleated RBC 0.000 Nucleated RBC % (auto) 0.0 Anion Gap 12 Estim Creat Clear Calc 135.3 Estimated GFR > 60 Random Glucose 100 Calcium 8.9 Microbiology Microbiology Results: Microbiology 12/22/23 Unknown Urine Culture - Final Urine clean catch - Urine watt top No growth. Assessment and Plan (1) Intentional overdose: Status: Acute (2) Major depression: Status: Acute (3) Alcohol use disorder: Status: Acute Plan This is a 43-year-old male with pertinent history of suicidal ideation with intentional overdose, alcohol use disorder, major depressive disorder who presents to the emergency department after intentional overdose. Intentional overdose with suicidal intent: no QT prolongation Seizure precautions continue sitter for safety care team eval when medically cleared Alcohol use disorder with concern for withdrawal continue phenobarb protocol follow CIWA continue thiamine, folic acid supplementation seen by Addition medicine Elevated liver enzymes: due to alcohol use, chronic h/o polysubstance abuse tox screen + for cocaine, marijuana, barbiturates addiction medicine consult as above Gastroesophageal reflux disease: Continue PPI tobacco dependence Smoking cessation advised NRT dvt PPX - heparin requires ongoing inpatient stay in the hospital for close monitoring on telemetry for alcohol withdrawal and monitoring of QT. Patient will also need care team consultation for possible admission for psychiatric care Quality Stroke Does the patient have a stroke diagnosis?: No VTE Prior VTE?: No VTE Risk Level:: Medical - moderate - high VTE Device Contraindication: Treatment Not Indicated VTE Drug Contraindication: N/A - Med Ordered
[2023-12-23] MEDS: Melatonin 3 MG TABLET 6 MG PO (21:20)
[2023-12-24] MEDS: Heparin Sodium,Porcine 5,000 UNIT/ML VIAL 5000 UNIT SUBCUT ×2 (01:08→09:22)
[2023-12-24 04:00] VITALS: BP 132/90; PULSE 57; RESP 19; TEMP 36.7
[2023-12-24] MEDS: Omeprazole 20 MG CAPSULE.DR PO (06:51)
[2023-12-24 07:22] VITALS: BP 161/76; PULSE 65; RESP 20; TEMP 36.1; O2SAT 98
[2023-12-24] MEDS: Thiamine HCL 100 MG in 0.9 % Sodium Chloride 100 ML 202 MG IV (09:21)
[2023-12-24] MEDS: PHENobarbitaL 30 MG TABLET 60 MG PO (09:21)
[2023-12-24] MEDS: Folic Acid 1 MG TABLET PO (09:22)
[2023-12-24] MEDS: 0.9 % Sodium Chloride Flush 3 ML SYRINGE IVFLUSH (09:22)
[2023-12-24 11:27] VITALS: BP 161/90; PULSE 65; RESP 19; TEMP 36.4; O2SAT 97
[2023-12-24] MEDS: LORazepam 2 MG/ML VIAL IVPUSH (11:52)
[2023-12-24] MEDS: Acetaminophen 325 MG TABLET 650 MG PO (11:53)
[2023-12-24] MEDS: Nicotine 14 MG PATCH.TD24 TRANSDERMA (11:54)
[2023-12-24 15:48] VITALS: BP 137/73; PULSE 78; RESP 20; TEMP 36.1; O2SAT 98
--- NOTE | 2023-12-24 16:05 | PM.DS ---
DS: Providers Provider Date of Service: 12/24/23 Date of admission: 12/22/23 06:07 Date of discharge: 12/24/23 Primary care physician: Unknown Physician Consults: 12/22/23 06:09 Consult to Psychiatry Routine Consulting Provider: Psych Covering Reason for consultation: Suicide attempt, wellbutrin overdose Has provider been notified: No 12/22/23 08:43 Consult for Sitter Routine Reason for consultation: SI 12/22/23 11:53 Addiction Medicine Routine Consulting Provider: Addiction Covering Reason for consultation: etoh Has provider been notified: No 12/24/23 08:13 Consult to Care Team Routine Comment: Reason for consultation: intentional OD ?LOC; medically cleared DS: Diagnosis Discharge Diagnosis (1) Intentional overdose: Status: Acute (2) Major depression: Status: Acute (3) Alcohol use disorder: Status: Acute DS: Summary Hospital Course Hospital Course: From H&P on the day of admission This is a 43 year old male with a history of alcohol use disorder, polysubstance use disorder, depression, previous suicidal ideation with intentional overdose who presents with intentional Wellbutrin overdose. He states that he took proximally 6 Wellbutrin tablets in the setting of heavy alcohol use. He reports drinking approximately 15 nips daily. In the emergency department he was treated with activated charcoal 2 hours after the ingestion. The case was discussed with poison control who recommended 24 hour observation to monitor for seizure activity and close monitoring of EKG and QT prolongation. He also reports feeling anxious and a little jittery. Intentional overdose with suicidal intent: Overdose with wellbutrin. no QT prolongation, no seizures. He was evaluated by the care team who felt that he did not require inpatient level of care. Per the care team he is currently kamilla for safety and does not pose any immediate risk to himself. He is not actively suicidal at this time. The patient reports that he has not been taking Wellbutrin daily and has not had it refilled since it was initially prescribed. He does not think it is helpful. He does feel that his Paxil is helpful. This was discussed with the psychiatric attending. Wellbutrin will be stopped as the patient has not been taking on a regular basis, we will continue all other baseline medications. The importance of taking medications only as prescribed was discussed in detail. Alcohol use disorder with concern for withdrawal/polysubstance use Treated with phenobarb protocol as well as supplementation with thiamine and folic acid. He was seen by addiction Medicine and declined resources. CIWA score remained low and he does not appear to be withdrawing at this time. Elevated liver enzymes: due to alcohol use, chronic. recommend to avoid alcohol use. outpatient follow up with PCP. The avoidance of alcohol cessation and long-term use of alcohol associated liver disease was discussed in detail. Time Attestation Discharge Coordination Time (in mins): 32 Quality: Safe Use of Opioids Does Pt have an Active Cancer Diagnosis on the Problem List?: No Quality: Stroke Does the patient have a stroke diagnosis?: No Physical Exam Vital Signs: Vital Signs: Last Vital Signs Temp 97.0 F 12/24/23 15:48 Pulse 78 12/24/23 15:48 Resp 20 12/24/23 15:48 BP 137/73 12/24/23 15:48 Pulse Ox 98 12/24/23 15:48 O2 Del Method Room Air 12/24/23 15:48 FiO2 97 12/24/23 04:00 BMI result Body Mass Index 30.8 Const: General: cooperative, comfortable, no acute distress, alert and awake Nutritional Appearance: average body habitus Orientation/consciousness: patient oriented x3 HEENT: Other: poor dentition Resp: Effort & Inspection: normal respiratory effort, able to speak in complete sentences, no respiratory distress and no use of accessory muscles Cardio: Rate: regular rate GI: Inspection: No distended Palpation (GI): Soft to palpation and nontender Neuro: General: patient oriented x3 and moves all extremities Extrem: General: Yes no pedal edema DS: Data Data Completed and Pending Completed studies during hospitalization [Text1]: Procedures Detoxification Services for Substance Abuse Treatment (11/18/23) Discharge Plan Discharge Anticipated Discharge Date/Time: 12/24/23 16:16 Patient Disposition: Home, Self-Care Discharge Diagnosis: intentional overdose alcohol use disorder Referrals: Physician,Unknown J [Primary Care Provider] - 1 Week Discharge Medications: Continued multivitamin [Daily-Shawanda] Tablet 1 tab PO DAILY Qty: 30 0RF naltrexone 50 mg Tablet 50 mg PO DAILY Qty: 14 0RF melatonin 3 mg Tablet 6 mg PO BEDTIME Qty: 28 0RF paroxetine HCl 20 mg Tablet 20 mg PO DAILY Qty: 14 0RF pyridoxine (vitamin B6) 50 mg Tablet 50 mg PO DAILY Qty: 30 0RF omeprazole 20 mg Capsule,Delayed Release(Dr/Ec) 20 mg PO DAILY@0630 Qty: 14 0RF folic acid 1 mg Tablet 1 mg PO DAILY Qty: 30 0RF thiamine mononitrate (vit B1) 100 mg Tablet 100 mg PO DAILY Qty: 30 0RF Discontinued bupropion HCl 150 mg Tablet Extended Release 24 Hr 150 mg PO DAILY Qty: 14 0RF Discharge Orders: Discharge Order (Routine); Ordered 12/24/23 Ordered By: Camryn Johnson Activity on Discharge: As tolerated Stand Alone Forms: Patient Portal Discharge page Print Language: Korean Care Plan Goals: see below Health Concerns: Intentional overdose Alcohol use disorder Polysubstance abuse disorder Plan of Treatment: Recommend to take all medications as prescribed. Do not take more medications than prescribed stop taking wellbutrin since you haven't refilled and haven't been taking daily Avoid alcohol Call to schedule a follow-up appointment with your PCP Assessment: See discharge summary
== END 2023-12-24 17:32 | disposition home or self-care (01) | DRG 918 ==
LOC: HO.ED 12-22 02:03 → HO.EDOVER 12-22 06:14 → HO.IMC 12-22 18:07
PROVIDERS: Admitting Provider Internal Medicine; Emergency Provider Emergency Medicine; Visit Provider Physician Assistant Medical
DX: T43.292A Poisoning by other antidepressants, intentional self-harm, initial encounter (principal); Z59.02 Unsheltered homelessness; F17.210 Nicotine dependence, cigarettes, uncomplicated; F10.920 Alcohol use, unspecified with intoxication, uncomplicated; F32.9 Major depressive disorder, single episode, unspecified; K21.9 Gastro-esophageal reflux disease without esophagitis; Z71.6 Tobacco abuse counseling; F19.10 Other psychoactive substance abuse, uncomplicated; Z20.822 Contact with and (suspected) exposure to COVID-19; Y90.8 Blood alcohol level of 240 mg/100 ml or more; Z79.899 Other long term (current) drug therapy
CPT/HCPCS: 0241U; 36415; 71045; 80048; 80076; 80143; 80179; 80307; 81001; 83690; 83735; 83880; 84484; 85025; 87086; 93005; 99285; J1644; J2060; J2560; J3411; J7120; S9485

== ENCOUNTER → 2023-12-21 23:56 | Outpatient (BNV) | payer SELFPAY | PROVIDERS: Admitting Provider Internal Medicine; Emergency Provider Emergency Medicine; Visit Provider Internal Medicine | DX: R07.9 Chest pain, unspecified (principal) | CPT/HCPCS: 93010 ==

== ENCOUNTER → 2023-12-22 04:53 | Outpatient (BNV) | payer SELFPAY | PROVIDERS: Admitting Provider Internal Medicine; Emergency Provider Emergency Medicine; Visit Provider Internal Medicine | DX: I45.81 Long QT syndrome (principal) | CPT/HCPCS: 93010 ==

== ENCOUNTER 2023-12-22 06:07 | Outpatient (BNV) | payer SELFPAY | END 2023-12-23 08:51 | PROVIDERS: Admitting Provider Internal Medicine; Emergency Provider Emergency Medicine; Visit Provider Internal Medicine | DX: I49.1 Atrial premature depolarization (principal) | CPT/HCPCS: 93010 ==

== ENCOUNTER → 2023-12-22 06:07 | Outpatient (BNV) | payer SELFPAY | PROVIDERS: Admitting Provider Internal Medicine; Emergency Provider Emergency Medicine; Visit Provider Nurse Practitioner Psychiatric/Mental Health | DX: F10.90 Alcohol use, unspecified, uncomplicated (principal) | CPT/HCPCS: 99232 ==

== ENCOUNTER → 2023-12-22 06:07 | Outpatient (BNV) | payer SELFPAY | PROVIDERS: Admitting Provider Internal Medicine; Emergency Provider Emergency Medicine; Visit Provider Physician Assistant Medical | DX: T50.902A Poisoning by unspecified drugs, medicaments and biological substances, intentional self-harm, initial encounter (principal); F32.9 Major depressive disorder, single episode, unspecified; F10.90 Alcohol use, unspecified, uncomplicated | CPT/HCPCS: 99222; 99232; 99239 ==